=== PATIENT | female | born 1945 | race Caucasian/White ===

== ENCOUNTER 2023-07-31 17:56 | Inpatient (IN) ==
--- NOTE | 2023-07-31 18:04 | Emergency Department Note ---
Impression & Plan Elevated lactic acid level, Weakness, Elevated procalcitonin, Acute dehydration, Hypomagnesemia, Hypokalemia ED Provider Note NAME: GRISELDA SCOTT AGE: 78 SEX: F : 1945 ARRIVES VIA: Ambulance INFORMANT: Patient, ED PROVIDER(S): Mamadou Laws MD CHIEF COMPLAINT: Weakness MEDICAL DECISION MAKING: Patient presents due to concern for generalized weakness as well as vaginal and groin discomfort and dysuria. No evidence of obvious cellulitis in the groin vaginal perineum or buttock area. IV was established blood work was obtained the patient was ordered 1500 cc bolus lactate Pro-Prince and urinalysis. Patient's blood work shows a normal white count H&H and platelet count. The patient's kidney function is unremarkable but with prerenal azotemia. Hypokalemia at 3.2 and hypomagnesemia at 1.5 noted. Initial lactate of 4.3. The patient was ordered a total of 3 L IV fluids. Procalcitonin 8.4. Reassessment the patient does have some mild left-sided flank pain so CT abdomen pelvis was ordered. No obvious infection of UTI based on urinalysis. Bio fire negative. Chest x-ray without obvious evidence of pneumonia. CT abdomen pelvis negative. I did speak with the on-call hospitalist service Dr. Goodman and the patient was admitted to the medicine service. Discussion w/ other healthcare providers: Dr. Goodman inpatient medicine service Prior /Outside records reviewed: I did review some outpatient [facility] records from a visit at [place] which noted the patient was diagnosed with adenovirus and had had a fever at that time. Differential diagnosis: Infection, dehydration, metabolic abnormality, hypo/hyperglycemia, electrolyte imbalance, anemia, UTI, pneumonia, thyroid dysfunction among others were considered. Diagnostics, as interpreted by me: ECG: Normal sinus rhythm, rate of 94, normal intervals, normal axis, no ST elevations, T wave inversion lead III. Cardiac monitoring: An order was placed for continuous cardiac monitoring. The monitor shows a rate of 95 with sinus rhythm. Patient was placed on pulse oximetry Medical decision rules: None Imaging studies: I informally interpreted the patient's chest x-ray which does not show obvious pneumonia or pneumothorax with formal report to follow. HPI: Patient presents due to concern for worsening back and hip discomfort. The patient states that this has been ongoing ever since she was diagnosed with into rhinovirus over the holidays and states that she was having significant diarrhea did require multiple rounds of IV fluids as the patient did have an elevated lactate while seen at [facility] prior. Patient denies any chest pains or shortness of breath. The patient does have an occasional cough. Patient states that she had a fever Tmax 1 to and did take two 650 mg Tylenol x 2 today. Patient states that she does complain of generalized weakness. The patient does have some associated dysuria burning in the groin area. Patient does complain of associate dysuria. The patient states that she did have emesis today but denies any blood in urine or stool. Patient did not have any blood in the vomit. PAST MEDICAL HISTORY: See Below PAST SURGICAL HISTORY: See Below SOCIAL HISTORY: See Below HOME MEDICATIONS: See Below ALLERGIES: See Below VITALS: See Below PHYSICAL EXAMINATION: GENERAL: NAD, non-toxic. EYE EXAM: Normal conjunctiva. PERRL, no anisocoria and EOM's grossly intact w/o pain. OROPHARYNX: Moist mucus membranes, grossly normal dentition. NECK: Supple, no nuchal rigidity, no adenopathy, non-tender. No signs of meningismus. FROM of the neck with good chin to chest and neck extension. No stridor. LUNGS: Clear to auscultation. Normal chest wall mechanics. HEART: NSR, no MRG. ABDOMEN: Abdomen soft, non-tender, no masses, no rebound or guarding. BACK: Left-sided lower back pain. No midline pain. No right-sided pain SKIN: No rashes and no bruising. UPPER EXTREMITIES: Upper extremities are grossly normal. LOWER EXTREMITIES: Grossly normal, no edema. Well-perfused no obvious evidence of cellulitis. NEURO EXAM: A&O x3, cranial nerves II-XII grossly intact, normal speech, moves all 4 extremities. Past Med/Surg History Medical History (Updated 08/01/23 @ 17:52 by Mamadou Laws MD) HLD (hyperlipidemia) H/O: HTN (hypertension) CAD (coronary artery disease) Atrial fibrillation with rapid ventricular response Hypokalemia Surgical History No pertinent past surgical history Social History Smoking Status: Never smoker Hx Alcohol Use: No Hx Substance Use: No Preferred Language: Namibian Communication Ability: Effective Blacking Wheel Tender Required: No Beliefs That Will Affect Care: None Current Living Situation: Alone Current Living Situation Comment: Home Other Information That Helps Us Care for You: Yes (room cool at night, no socks in bed please) Feels Safe at Home: Yes Safety Concerns: Feels Safe At This Time Assistive Devices: Other Assistive Devices Comment: Reading glasses, partial dentures Allergies Allergies Allergy/AdvReac Type Severity Reaction Status Date / Time gabapentin AdvReac EYES BLEED Verified 07/31/23 19:43 Home Meds Home Medications Medication Instructions Recorded Confirmed aspirin 81 mg tablet,delayed 81 mg PO DAILY 07/31/23 07/31/23 release clobetasol 0.05 % topical cream 1 applic topical DIRECTED PRN 07/31/23 07/31/23 .[employer] clopidogrel 75 mg tablet 75 mg PO DAILY 07/31/23 07/31/23 cyanocobalamin (vitamin B-12) 1,000 mcg PO DAILY 07/31/23 07/31/23 1,000 mcg tablet (Vitamin B-12) cyclosporine 0.05 % eye drops in a 1 drp ophthalmic (eye) Q12H 07/31/23 07/31/23 dropperette (Restasis) fluticasone propionate 50 2 spray intranasal DAILY PRN Nasal 07/31/23 07/31/23 mcg/actuation nasal Congestion spray,suspension (Flonase Allergy Relief) lactobacillus combination no.4 3 0 mmu cells PO DAILY 07/31/23 07/31/23 billion cell capsule (Probiotic) levothyroxine 100 mcg tablet 100 mcg PO QAM 07/31/23 07/31/23 metoprolol tartrate 25 mg tablet 25 mg PO BID 07/31/23 08/01/23 multivitamin 1 tab PO DAILY 07/31/23 07/31/23 nitroglycerin 0.4 mg sublingual 0.4 mg sublingual DIRECTED PRN 07/31/23 07/31/23 tablet .CHEST PAIN omeprazole 20 mg capsule,delayed 20 mg PO DAILY 07/31/23 07/31/23 release polyvinyl alcohol 1.4 % eye drops 1 drp ophthalmic (eye) QID PRN 07/31/23 07/31/23 .DRY EYES potassium chloride 10 mEq 10 meq PO DAILY 07/31/23 07/31/23 capsule,extended release rosuvastatin 20 mg tablet 20 mg PO DAILY 07/31/23 07/31/23 Results & Data (ED) Vital Signs Vital Signs - 24 hr 07/31/23 18:09 07/31/23 18:10 07/31/23 18:12 Temperature 36.8 C Temperature Source Oral Pulse Rate 99 H 87 93 H Pulse Rate [Right Finger] Pulse Rate from SpO2 Sensor 95 H 88 Respiratory Rate 29 H 21 21 Blood Pressure 114/89 Blood Pressure [Right Arm] Blood Pressure Mean 97 Blood Pressure Mean [Right Arm] Pulse Oximetry 94 93 97 Oxygen Delivery Method Sepsis Recent Fever Within 48 Hours No Sepsis New/Unexplained Change in Mental Status No Sepsis Action Taken by Nursing No Action Required 07/31/23 18:14 07/31/23 18:20 07/31/23 18:30 Temperature Temperature Source Pulse Rate 89 92 H 96 H Pulse Rate [Right Finger] Pulse Rate from SpO2 Sensor 91 H 95 H Respiratory Rate 26 H 24 Blood Pressure Blood Pressure [Right Arm] Blood Pressure Mean Blood Pressure Mean [Right Arm] Pulse Oximetry 96 94 Oxygen Delivery Method Sepsis Recent Fever Within 48 Hours Sepsis New/Unexplained Change in Mental Status Sepsis Action Taken by Nursing 07/31/23 18:33 07/31/23 18:33 07/31/23 18:35 Temperature Temperature Source Pulse Rate 89 Pulse Rate [Right Finger] Pulse Rate from SpO2 Sensor 88 Respiratory Rate 25 H Blood Pressure 96/56 L Blood Pressure [Right Arm] Blood Pressure Mean 77 Blood Pressure Mean [Right Arm] Pulse Oximetry 94 97 Oxygen Delivery Method Room Air Sepsis Recent Fever Within 48 Hours Sepsis New/Unexplained Change in Mental Status Sepsis Action Taken by Nursing 07/31/23 20:46 07/31/23 21:54 07/31/23 22:10 Temperature Temperature Source Pulse Rate 104 H 106 H Pulse Rate [Right Finger] 111 H Pulse Rate from SpO2 Sensor 106 H Respiratory Rate 12 24 Blood Pressure Blood Pressure [Right Arm] 99/50 L Blood Pressure Mean Blood Pressure Mean [Right Arm] 66 Pulse Oximetry 98 93 Oxygen Delivery Method Room Air Sepsis Recent Fever Within 48 Hours Sepsis New/Unexplained Change in Mental Status Sepsis Action Taken by Nursing 07/31/23 22:20 07/31/23 22:30 07/31/23 22:30 Temperature Temperature Source Pulse Rate 105 H 105 H Pulse Rate [Right Finger] Pulse Rate from SpO2 Sensor 103 H 94 H Respiratory Rate 23 21 Blood Pressure 97/58 L Blood Pressure [Right Arm] Blood Pressure Mean 68 Blood Pressure Mean [Right Arm] Pulse Oximetry 94 93 Oxygen Delivery Method Sepsis Recent Fever Within 48 Hours Sepsis New/Unexplained Change in Mental Status Sepsis Action Taken by Nursing 07/31/23 22:36 07/31/23 22:40 07/31/23 22:50 Temperature Temperature Source Pulse Rate 106 H 102 H Pulse Rate [Right Finger] 107 H Pulse Rate from SpO2 Sensor 99 H 103 H Respiratory Rate 12 23 29 H Blood Pressure Blood Pressure [Right Arm] 97/58 L Blood Pressure Mean Blood Pressure Mean [Right Arm] 71 Pulse Oximetry 98 94 93 Oxygen Delivery Method Room Air Sepsis Recent Fever Within 48 Hours Sepsis New/Unexplained Change in Mental Status Sepsis Action Taken by Nursing 07/31/23 23:00 07/31/23 23:00 07/31/23 23:10 Temperature Temperature Source Pulse Rate 103 H 104 H Pulse Rate [Right Finger] Pulse Rate from SpO2 Sensor 97 H 98 H Respiratory Rate 22 20 Blood Pressure 96/53 L Blood Pressure [Right Arm] Blood Pressure Mean 62 Blood Pressure Mean [Right Arm] Pulse Oximetry 93 95 Oxygen Delivery Method Sepsis Recent Fever Within 48 Hours Sepsis New/Unexplained Change in Mental Status Sepsis Action Taken by Nursing 07/31/23 23:20 07/31/23 23:30 07/31/23 23:30 Temperature Temperature Source Pulse Rate 101 H 98 H Pulse Rate [Right Finger] Pulse Rate from SpO2 Sensor 99 H 99 H Respiratory Rate 25 H 21 Blood Pressure 101/62 Blood Pressure [Right Arm] Blood Pressure Mean 83 Blood Pressure Mean [Right Arm] Pulse Oximetry 94 94 Oxygen Delivery Method Sepsis Recent Fever Within 48 Hours Sepsis New/Unexplained Change in Mental Status Sepsis Action Taken by Nursing 07/31/23 23:40 07/31/23 23:50 08/01/23 00:00 Temperature Temperature Source Pulse Rate 101 H 104 H 104 H Pulse Rate [Right Finger] Pulse Rate from SpO2 Sensor 101 H 104 H 102 H Respiratory Rate 20 20 16 Blood Pressure Blood Pressure [Right Arm] Blood Pressure Mean Blood Pressure Mean [Right Arm] Pulse Oximetry 90 94 94 Oxygen Delivery Method Sepsis Recent Fever Within 48 Hours Sepsis New/Unexplained Change in Mental Status Sepsis Action Taken by Nursing 08/01/23 00:00 Temperature Temperature Source Pulse Rate Pulse Rate [Right Finger] Pulse Rate from SpO2 Sensor Respiratory Rate Blood Pressure 100/57 L Blood Pressure [Right Arm] Blood Pressure Mean 76 Blood Pressure Mean [Right Arm] Pulse Oximetry Oxygen Delivery Method Sepsis Recent Fever Within 48 Hours Sepsis New/Unexplained Change in Mental Status Sepsis Action Taken by Nursing Laboratory Data 08/01/23 04:12 08/01/23 04:12 Lab Results 07/31/23 07/31/23 Range/Units 18:36 20:17 WBC 8.54 (4.8-10.8) K/ul RBC 4.22 (4.20-5.40) M/uL Hgb 14.2 (12.0-16.0) g/dl Hct 41.1 (37.0-47.0) % MCV 97.4 (80.0-100.0) fL MCH 33.6 (25.0-34.0) pg MCHC 34.5 (32.0-36.0) g/dL RDW Std Deviation 45.0 (36.4-46.3) fL RDW Coeff of Ronit 12.7 (11.5-14.5) % Plt Count 215 (130-400) K/uL MPV 10.1 (9.4-12.4) fL Immature Gran % (Auto) 1.1 % Neut % (Auto) 94.0 % Lymph % (Auto) 4.0 % [place] % (Auto) 0.2 % Eos % (Auto) 0.5 % Baso % (Auto) 0.2 % Neut # (Auto) 8.03 H (1.40-6.50) K/uL Lymph # (Auto) 0.34 L (1.20-3.40) K/uL [place] # (Auto) 0.02 L (0.11-0.59) K/uL Eos # (Auto) 0.04 (0.00-0.50) K/uL Baso # (Auto) 0.02 (0.00-0.20) K/uL Immature Gran # (Auto) 0.09 (0.01-0.20) K/uL Sodium 138 (136-145) mmol/L Potassium 3.2 L (3.5-5.1) mmol/L Chloride 103 (98-107) mmol/L Carbon Dioxide 23 (21-32) mmol/L Anion Gap 12 H (3-11) BUN 25 H (6-23) mg/dl Creatinine 0.88 (0.6-1.2) mg/dl Est Cr Clr Drug Dosing 50.9 ml/min Est GFR ( Amer) 74.0 ml/min Est GFR (Non-Af Amer) 63.8 ml/min BUN/Creatinine Ratio 28.4 H (10-20) Glucose 127 H (70-99(Fasting)) mg/dl Lactate 4.3 H* 2.8 H* (0.4-2.0) mmol/L Calcium 10.0 (8.6-10.3) mg/dl Magnesium 1.5 L (1.7-2.4) mg/dl Total Bilirubin 0.7 (0.2-1.0) mg/dl AST 34 (13-39) U/L ALT 29 (7-52) U/L Alkaline Phosphatase 89 (34-104) U/L Total Protein 7.1 (6.0-8.3) gm/dl Albumin 4.2 (3.4-5.0) gm/dl Globulin 2.9 (2.5-4.0) gm/dl Albumin/Globulin Ratio 1.4 (0.9-2) Procalcitonin 8.42 H (0-0.5) ng/ml TSH 2.507 (0.300-4.500) uIu/ml Urine Color Dark Yellow Urine Appearance Clear (Clear) Urine pH 5.0 (4.5-7.5) Ur Specific [place] 1.013 (1.000-1.030) Urine Protein Trace H (Negative) Urine Glucose (UA) Negative (Negative) Urine Ketones Negative (Negative) Urine Blood Negative (Negative) Urine Nitrite Negative (Negative) Urine Bilirubin Negative (Negative) Urine Urobilinogen Negative (Negative) Ur Leukocyte Esterase Trace H (Negative) Urine WBC (Auto) 1-5 (0-5) /hpf Urine RBC (Auto) 0-4 (0-4) /hpf U Hyaline Cast (Auto) 1-5 (0-5) /lpf U Epithel Cells (Auto) >30 H (0-5) /lpf Urine Bacteria (Auto) Negative (Negative) Adenovirus (PCR) Not Detected (NotDetected) B. pertussis DNA (PCR) Not Detected (NotDetected) B.parapertussis DNA PCR Not Detected (NotDetected) C. pneumoniae DNA (PCR) Not Detected (NotDetected) Coronavirus OC43 (PCR) Not Detected (NotDetected) Coronavirus HKU1 (PCR) Not Detected (NotDetected) Coronavirus 229E (PCR) Not Detected (NotDetected) SARS-CoV-2 (PCR) Not Detected (NotDetected) Coronavirus NL63 (PCR) Not Detected (NotDetected) Human Metapneumovir PCR Not Detected (NotDetected) Influenza Type A (PCR) Not Detected (NotDetected) Influenza Type B (PCR) Not Detected (NotDetected) M. pneumoniae (PCR) Not Detected (NotDetected) Parainfluenza 1 (PCR) Not Detected (NotDetected) Parainfluenza 2 (PCR) Not Detected (NotDetected) Parainfluenza 3 (PCR) Not Detected (NotDetected) Parainfluenza 4 (PCR) Not Detected (NotDetected) RSV (PCR) Not Detected (NotDetected) Entero/Rhino (PCR) Not Detected (NotDetected) Administered Medications Aspirin (Aspirin 81 Mg Ectab) 81 mg PO DAILY PENDING SALE TO [facility] Stop: 08/31/23 08:59 Last Admin: 08/01/23 08:59 Dose: 81 mg Documented By: MADHU Clopidogrel Bisulfate (Clopidogrel Bisulfate 75 Mg Tab) 75 mg PO DAILY KORIN Stop: 08/31/23 08:59 Last Admin: 08/01/23 08:59 Dose: 75 mg Documented By: MADHU Cyanocobalamin (Cyanocobalamin (B-12) 500 Mcg Tablet) 1,000 mcg PO DAILY KORIN Stop: 08/31/23 08:59 Last Admin: 08/01/23 09:00 Dose: 1,000 mcg Documented By: MADHU Hydromorphone HCl (Hydromorphone Inj 0.5 Mg/0.5 Ml Syr) 0.5 mg IV Q3H PRN PRN Reason: Pain Stop: 08/15/23 00:29 Last Admin: 08/01/23 14:24 Dose: 0.5 mg Documented By: Admin: 08/01/23 07:17 Dose: 0.5 mg Documented By: MADHU Piperacillin Sod/Tazobactam (Sod 4.5 gm/ Dextrose) 100 mls @ 25 mls/hr IV Q8H PENDING SALE TO [facility]; Protocol Stop: 08/11/23 05:59 Last Admin: 08/01/23 14:42 Dose: 25 mls/hr Documented By: Infusion: 08/01/23 11:19 Dose: Infused Documented By: Admin: 08/01/23 07:19 Dose: 25 mls/hr Documented By: MADHU Sodium Chloride (Nss) 1,000 mls @ 125 mls/hr IV .Q8H PENDING SALE TO [facility] Stop: 08/31/23 00:29 Last Admin: 08/01/23 17:23 Dose: 125 mls/hr Documented By: Infusion: 08/01/23 17:05 Dose: Infused Documented By: Admin: 08/01/23 09:05 Dose: 125 mls/hr Documented By: Infusion: 08/01/23 09:04 Dose: Infused Documented By: Admin: 08/01/23 01:01 Dose: 125 mls/hr Documented By: JR Amiodarone HCl/Dextrose (Nexterone / D5w) 360 mg in 200 mls @ 33.333 mls/hr IV ONE ONE Stop: 08/01/23 22:59 Last Admin: 08/01/23 17:07 Dose: 1 mg/min, 33.3 mls/hr Documented By: PEACE Co-signed By: WILLA Insulin Aspart (Insulin Aspart Per Unit Charge) 0 units SC Q6 PENDING SALE TO [facility] Stop: 08/31/23 00:29 Last Admin: 08/01/23 14:51 Dose: Not Given Documented By: Admin: 08/01/23 06:31 Dose: 1 units Documented By: BEN Co-signed By: CASTRO Admin: 08/01/23 01:11 Dose: 1 units Documented By: JR Co-signed By: JAMES Levothyroxine Sodium (Levothyroxine Sodium 100 Mcg Tablet) 100 mcg PO DAILYBB PENDING SALE TO [facility] Stop: 08/31/23 06:29 Last Admin: 08/01/23 06:32 Dose: 100 mcg Documented By: BEN Metoprolol Tartrate (Metoprolol Tartrate 25 Mg Tab) 25 mg PO BID PENDING SALE TO [facility] Stop: 08/31/23 08:59 Last Admin: 08/01/23 09:02 Dose: Not Given Documented By: MADHU Multivitamins (Multivitamin Tab) 1 tab PO DAILY KORIN Stop: 08/31/23 08:59 Last Admin: 08/01/23 09:01 Dose: 1 tab Documented By: MADHU Potassium Chloride (Potassium Chloride 10 Meq Tabcr) 10 meq PO DAILY KORIN Stop: 08/31/23 08:59 Last Admin: 08/01/23 09:01 Dose: 10 meq Documented By: MADHU Rosuvastatin Calcium (Rosuvastatin Calcium 20 Mg Tab) 20 mg PO DAILY KORIN Stop: 08/31/23 08:59 Last Admin: 08/01/23 09:01 Dose: 20 mg Documented By: MADHU Discontinued Medications Enoxaparin Sodium (Enoxaparin Inj 40 Mg/0.4 Ml Syr) 40 mg SQ Q24H KORIN Stop: 08/31/23 08:59 Last Admin: 08/01/23 09:02 Dose: 40 mg Documented By: MADHU Hydromorphone HCl (Hydromorphone Inj 0.5 Mg/0.5 Ml Syr) 0.5 mg IV NOW STA Stop: 07/31/23 23:29 Last Admin: 07/31/23 23:35 Dose: 0.5 mg Documented By: JR Sodium Chloride (Nss) 1,000 mls @ 999 mls/hr IV .Q1H1M KORIN Stop: 07/31/23 19:30 Last Infusion: 07/31/23 19:49 Dose: Infused Documented By: Admin: 07/31/23 18:41 Dose: 999 mls/hr Documented By: MALDONADO Sodium Chloride (Nss) 500 mls @ 999 mls/hr IV .Q31M KORIN Stop: 07/31/23 19:00 Last Infusion: 07/31/23 19:12 Dose: Infused Documented By: Admin: 07/31/23 18:41 Dose: 999 mls/hr Documented By: MALDONADO Sodium Chloride (Nss) 1,000 mls @ 999 mls/hr IV .Q1H1M ONE Stop: 07/31/23 19:57 Last Infusion: 07/31/23 20:23 Dose: Infused Documented By: Admin: 07/31/23 19:27 Dose: 999 mls/hr Documented By: JR Ceftriaxone Sodium (Rocephin) 2,000 mg in 50 mls @ 100 mls/hr IV NOW STA Stop: 07/31/23 20:49 Last Infusion: 07/31/23 21:12 Dose: Infused Documented By: Admin: 07/31/23 20:38 Dose: 100 mls/hr Documented By: JR Sodium Chloride (Nss) 500 mls @ 999 mls/hr IV .Q31M ONE Stop: 07/31/23 21:27 Last Infusion: 07/31/23 22:23 Dose: Infused Documented By: Admin: 07/31/23 21:38 Dose: 999 mls/hr Documented By: JR Magnesium Sulfate/Dextrose (Magnesium Sulfate / D5w) 1 gm in 100 mls @ 100 mls/hr IV Q1H KORIN Stop: 07/31/23 22:57 Last Infusion: 07/31/23 23:41 Dose: Infused Documented By: Admin: 07/31/23 22:36 Dose: 100 mls/hr Documented By: Infusion: 07/31/23 22:36 Dose: Infused Documented By: Admin: 07/31/23 21:37 Dose: 100 mls/hr Documented By: JR Piperacillin Sod/Tazobactam (Sod 4.5 gm/ Dextrose) 100 mls @ 200 mls/hr IV ONE STA; Protocol Stop: 08/01/23 01:07 Last Infusion: 08/01/23 01:30 Dose: Infused Documented By: Admin: 08/01/23 01:01 Dose: 200 mls/hr Documented By: JR Sodium Chloride (Nss) 500 mls @ 500 mls/hr IV .Q1H KORIN Stop: 08/01/23 08:14 Last Infusion: 08/01/23 08:25 Dose: Infused Documented By: Admin: 08/01/23 07:25 Dose: 500 mls/hr Documented By: MADHU Amiodarone HCl/Dextrose (Nexterone / D5w) 150 mg in 100 mls @ 600 mls/hr IV NOW STA Stop: 08/01/23 16:59 Last Infusion: 08/01/23 17:13 Dose: Infused Documented By: PEACE Co-signed By: WILLA Admin: 08/01/23 17:02 Dose: 600 mls/hr Documented By: PEACE Co-signed By: WILLA Ioversol (Optiray 320 500ml) 84 ml IV ONCE ONE Stop: 07/31/23 21:26 Last Admin: 07/31/23 21:26 Dose: 84 ml Documented By: HAYDEN Metoprolol Tartrate (Metoprolol Tartrate 1 Mg/Ml Vial) 5 mg IV NOW STA Stop: 08/01/23 15:23 Last Admin: 08/01/23 15:31 Dose: 5 mg Documented By: VIJI Morphine Sulfate (Morphine Sulfate 4 Mg/Ml 1 Ml Carp\Vial) 4 mg IV NOW STA Stop: 07/31/23 21:14 Last Admin: 07/31/23 21:38 Dose: 4 mg Documented By: JR Ondansetron HCl (Ondansetron Inj 2 Mg/Ml 2 Ml Vial) 4 mg IV NOW STA Stop: 07/31/23 21:14 Last Admin: 07/31/23 21:38 Dose: 4 mg Documented By: JR Potassium Chloride (Potassium Chloride Crtab 20 Meq Tabcr) 40 meq PO NOW STA Stop: 07/31/23 20:58 Last Admin: 07/31/23 21:38 Dose: Not Given Documented By: JR Imaging Data Radiologist's Impression: Chest X-Ray 07/31/23 18:21 XR chest 1V portable HISTORY: weakness COMPARISON: None. FINDINGS: No pneumothorax. No pleural effusions. Mild interstitial thickening. This is likely chronic. The heart is mildly enlarged. No evidence for pulmonary edema. No acute fractures. Cervical spinal fusion hardware is noted. IMPRESSION: Cardiomegaly and mild interstitial thickening. This is likely chronic. ACT 112: Negative or not required by law. Electronically signed by: Javier Gonzalez M.D. 08/01/2023 7:39 AM Chest X-Ray 07/31/23 18:21 XR chest 1V portable HISTORY: weakness COMPARISON: None. FINDINGS: No pneumothorax. No pleural effusions. Mild interstitial thickening. This is likely chronic. The heart is mildly enlarged. No evidence for pulmonary edema. No acute fractures. Cervical spinal fusion hardware is noted. IMPRESSION: Cardiomegaly and mild interstitial thickening. This is likely chronic. ACT 112: Negative or not required by law. Electronically signed by: Javier Gonzalez M.D. 08/01/2023 7:39 AM Abdomen/Pelvis CT 07/31/23 21:13 Exam(s): CT ABDOMEN + PELVIS With Contrast IV Amt: 84 ml optiray 320 EXAM: CT Abdomen and Pelvis With Intravenous Contrast CLINICAL HISTORY: Reason for exam: L flank pain. TECHNIQUE: Axial computed tomography images of the abdomen and pelvis with intravenous contrast. Automated exposure control was utilized for the study. A dose lowering technique was utilized adhering to the principles of ALARA. CONTRAST: Patient received 84 ml optiray 320 of IV contrast COMPARISON: No relevant prior studies available. FINDINGS: Lung bases: Unremarkable. No mass. No consolidation. ABDOMEN: Liver: Unremarkable. No mass. Gallbladder and bile ducts: Cholelithiasis. No ductal dilation. Pancreas: Unremarkable. No mass. No ductal dilation. Spleen: Calcified splenic granulomas. Adrenals: Unremarkable. No mass. Kidneys and ureters: Unremarkable. No hydronephrosis or delayed nephrogram. Stomach and bowel: Diverticulosis, without acute diverticulitis. No bowel obstruction. No free air. PELVIS: Appendix: Appendectomy. Bladder: Unremarkable. No mass. Reproductive: Unremarkable as visualized. ABDOMEN and PELVIS: Intraperitoneal space: See above. Bones/joints: Degenerative changes of the spine. No acute fracture. No dislocation. Soft tissues: Unremarkable. Vasculature: Atherosclerotic changes of the aorta. No abdominal aortic aneurysm. Lymph nodes: Unremarkable. No enlarged lymph nodes. IMPRESSION: No acute findings in the abdomen or pelvis. Electronically signed by: Koby Anderson MD 07/31/23 21:39 PM Discharge Plan Visit Data Chief Complaint: Hip Pain ED Provider: Mamadou Laws Discharge Problem: Elevated lactic acid level, Weakness, Elevated procalcitonin, Acute dehydration, Hypomagnesemia, Hypokalemia Patient Disposition: Admitted As Inpatient Discharge Instructions Interventions: ED Discharge Assessment Last Done: 08/01/23 00:32
[2023-07-31] MEDS ORDERED: SODIUM CHLORIDE 0.9% 500 ML IV SCH (18:30)
[2023-07-31] MEDS ORDERED: SODIUM CHLORIDE 0.9% 1,000 ML IV SCH (18:30)
[2023-07-31 18:47] LABS: Appearance Urine Clear (Clear); Bacteria Urine Automated Negative (Negative); Bilirubin Urine Negative (Negative); Blood Urine Negative (Negative); Color Urine Dark Yellow; Epithelial Cell Urine Auto >30 /lpf (0-5); Glucose Urine UA Negative (Negative); Hematocrit (blood only) 41.1 % (37.0-47.0); Hemoglobin 14.2 g/dl (12.0-16.0); Ketones Urine Negative (Negative); Leukocyte Esterase Urine Trace (Negative); Mean Corpuscular Hemoglobin 33.6 pg (25.0-34.0); Mean Corpuscular Hgb Conc 34.5 g/dL (32.0-36.0); Mean Corpuscular Volume 97.4 fL (80.0-100.0); Mean Platelet Volume 10.1 fL (9.4-12.4); Nitrite Urine Negative (Negative); Platelet Count 215 K/uL (130-400); Protein Urine Trace (Negative); RBC Urine Automated 0-4 /hpf (0-4); RDW Coefficient of Variation 12.7 % (11.5-14.5); Red Blood Count 4.22 M/uL (4.20-5.40); Specific Gravity Urine 1.013 (1.000-1.030); Urobilinogen Urine Negative (Negative); White Blood Count 8.54 K/ul (4.8-10.8)
[2023-07-31] MEDS ORDERED: SODIUM CHLORIDE 0.9% 1,000 ML IV ONE (18:57)
[2023-07-31 19:06] LABS: Albumin Globulin Ratio 1.4 (0.9-2); Albumin Level 4.2 gm/dl (3.4-5.0); BUN Creatinine Ratio 28.4 (10-20); Bilirubin,Total 0.7 mg/dl (0.2-1.0); Creatinine Clr Calc Pharmacy 50.9 ml/min; Est GFR (Non-African American) 63.8 ml/min; Globulin 2.9 gm/dl (2.5-4.0); Magnesium 1.5 mg/dl (1.7-2.4); Potassium 3.2 mmol/L (3.5-5.1); Total Protein 7.1 gm/dl (6.0-8.3)
[2023-07-31 19:10] LABS: Basophils # (auto) 0.02 K/uL (0.00-0.20); Basophils % (auto) 0.2 %; Eosinophils # (auto) 0.04 K/uL (0.00-0.50); Eosinophils % (auto) 0.5 %; Immature Granulocytes # (auto) 0.09 K/uL (0.01-0.20); Immature Granulocytes % (auto) 1.1 %; Lymphocytes # (auto) 0.34 K/uL (1.20-3.40); Monocytes # (auto) 0.02 K/uL (0.11-0.59); Monocytes % (auto) 0.2 %; Neutrophils # (auto) 8.03 K/uL (1.40-6.50)
[2023-07-31 19:21] LABS: Thyroid Stimulating Hormone 2.507 uIu/ml (0.300-4.500)
[2023-07-31 19:44] LABS: Adenovirus PCR Not Detected (NotDetected); Bordetella parapertussis PCR Not Detected (NotDetected); Bordetella pertussis PCR Not Detected (NotDetected); Chlamydia pneumoniae PCR Not Detected (NotDetected); Coronavirus 229E PCR Not Detected (NotDetected); Coronavirus CoV-2 (COVID19)PCR Not Detected (NotDetected); Coronavirus HKU1 PCR Not Detected (NotDetected); Coronavirus NL63 PCR Not Detected (NotDetected); Coronavirus OC43PCR Not Detected (NotDetected); Human Metapneumovirus PCR Not Detected (NotDetected); Influenza A PCR Not Detected (NotDetected); Influenza B PCR Not Detected (NotDetected); Mycoplasma pneumoniae PCR Not Detected (NotDetected); Parainfluenza Virus 1 PCR Not Detected (NotDetected); Parainfluenza Virus 2 PCR Not Detected (NotDetected); Parainfluenza Virus 3 PCR Not Detected (NotDetected); Parainfluenza Virus 4 PCR Not Detected (NotDetected); Respiratory Syncytial VirusPCR Not Detected (NotDetected); Rhinovirus/Enterovirus PCR Not Detected (NotDetected)
[2023-07-31] MEDS ORDERED: cefTRIAXone SODIUM 2,000 MG/50 ML BAG IV STA (20:20)
[2023-07-31] MEDS ORDERED: POTASSIUM CHLORIDE CRTAB 20 MEQ TABCR PO STA (20:57)
[2023-07-31] MEDS ORDERED: SODIUM CHLORIDE 0.9% 500 ML IV ONE (20:57)
[2023-07-31] MEDS ORDERED: ONDANSETRON INJ 2 MG/ML 2 ML VIAL IV STA (21:13)
[2023-07-31] MEDS ORDERED: MoRPHine SULFATE 4 MG/ML 1 ML CARP\\VIAL IV STA (21:13)
[2023-07-31] MEDS ORDERED: OPTIRAY 320 500ml IV ONE (21:25)
[2023-07-31] MEDS: MAGNESIUM SULFATE / D5W 1 GM/100 ML BAG IV SCH ×2 (21:37→22:36)
--- NOTE | 2023-07-31 21:40 | CT Scan Report ---
Exam(s): CT ABDOMEN + PELVIS With Contrast IV Amt: 84 ml optiray 320 EXAM: CT Abdomen and Pelvis With Intravenous Contrast CLINICAL HISTORY: Reason for exam: L flank pain. TECHNIQUE: Axial computed tomography images of the abdomen and pelvis with intravenous contrast. Automated exposure control was utilized for the study. A dose lowering technique was utilized adhering to the principles of ALARA. CONTRAST: Patient received 84 ml optiray 320 of IV contrast COMPARISON: No relevant prior studies available. FINDINGS: Lung bases: Unremarkable. No mass. No consolidation. ABDOMEN: Liver: Unremarkable. No mass. Gallbladder and bile ducts: Cholelithiasis. No ductal dilation. Pancreas: Unremarkable. No mass. No ductal dilation. Spleen: Calcified splenic granulomas. Adrenals: Unremarkable. No mass. Kidneys and ureters: Unremarkable. No hydronephrosis or delayed nephrogram. Stomach and bowel: Diverticulosis, without acute diverticulitis. No bowel obstruction. No free air. PELVIS: Appendix: Appendectomy. Bladder: Unremarkable. No mass. Reproductive: Unremarkable as visualized. ABDOMEN and PELVIS: Intraperitoneal space: See above. Bones/joints: Degenerative changes of the spine. No acute fracture. No dislocation. Soft tissues: Unremarkable. Vasculature: Atherosclerotic changes of the aorta. No abdominal aortic aneurysm. Lymph nodes: Unremarkable. No enlarged lymph nodes. IMPRESSION: No acute findings in the abdomen or pelvis. Electronically signed by: Koby Anderson MD 07/31/23 21:39 PM
[2023-07-31] MEDS ORDERED: HYDROmorphone INJ 0.5 MG/0.5 ML SYR IV STA (23:28)
--- NOTE | 2023-08-01 00:18 | History & Physical Report ---
Date of Service July 31, 2023 Assessment & Plan (1) Abdominal pain: Plan: 78-year-old female past medical history significant for type 2 diabetes seems not on medication, hypothyroidism, chronic recurrent sinusitis, history of CAD s/p stents in February 2023, hypertension, paroxysmal supraventricular tachycardia, GERD, vitamin B12 deficiency, epiglottic appendagitis urinary incontinence, generalized osteoarthritis, cervical radiculitis, chronic abdominal pain, progressive vascular leukoencephalopathy, circumscribed scleroderma, s/p cervical fusion surgery, general anxiety disorder, ambulatory dysfunction presents with ongoing nausea vomiting abdominal pain diarrhea and hip pain. Patient was seen at [facility] on with fever and vomiting and burning micturition and found to RSV and was discharged home. She went back to [facility] in July 18 with persistent symptoms and chest x-ray possible pneumonia and her initial lactic acid was 2.6 and repeat is 1.6 and she was discharged on Augmentin and azithromycin. She finished antibiotics yesterday. Again starting developing nausea vomiting severe abdominal pain and hip pain and pain radiating to groins which prompted her to come to the ER today. Hemodynamically stable. Initial lactic acid was 4.3. Repeat lactic is 2.8. Complains of some burning micturition. She was given Rocephin. CT abdomen pelvis is okay. No leukocytosis. Afebrile. States sometimes gets headache. Vision is okay. She has some chronic left-sided neck pain and jaw pain from history of dental infection. No neck stiffness. Still nauseous. Denies any chest pain. No shortness of breath. No cough. No blood in the stools. Hemodynamics okay. Daughter is in the room. Abdominal pain Nausea vomiting diarrhea Going on since time Just finished antibiotics Augmentin and azithromycin for possible pneumonia Initial lactic was 4.2 and repeat is 2.8 Elevated procalcitonin at 8 No obvious source of infection identified No leukocytosis UA is okay Chest x-ray seems okay Empirically placing on Zosyn IV Protonix IV fluids IV antibiotics with Zosyn IV pain meds as needed Will follow blood cultures and stool studies GI consult in a.m. for further recommendations Elevated lactic acidosis CT abdomen pelvis okay As patient has had some headache will arline CT head and some cough we will get CT of the chest Follow repeat labs Antibiotics as above History of CAD s/p stents in February 2023 Continue home aspirin, Plavix, beta-andreia and statin Hypertension On metoprolol Will monitor Hyperlipidemia On statin Diabetes Not on medications Follow HbA1c levels Sliding scale Hypothyroidism On Synthyroid Follow TSH History of SVT On metoprolol DVT prophylaxis Lovenox Disposition Med/tele Full code History of Present Illness Chief Complaint: General weakness. Nausea vomiting and diarrhea and dysuria and abdominal pain Primary Care Provider: Philly Chin 78-year-old female past medical history significant for type 2 diabetes seems not on medication, hypothyroidism, chronic recurrent sinusitis, history of CAD s/p stents in February 2023, hypertension, paroxysmal supraventricular tachycardia, GERD, vitamin B12 deficiency, epiglottic appendagitis urinary incontinence, generalized osteoarthritis, cervical radiculitis, chronic abdominal pain, progressive vascular leukoencephalopathy, circumscribed scleroderma, s/p cervical fusion surgery, general anxiety disorder, ambulatory dysfunction presents with ongoing nausea vomiting abdominal pain diarrhea and hip pain. Patient was seen at [facility] on with fever and vomiting and burning micturition and found to RSV and was discharged home. She went back to [facility] in July 18 with persistent symptoms and chest x-ray possible pneumonia and her initial lactic acid was 2.6 and repeat is 1.6 and she was discharged on Augmentin and azithromycin. She finished antibiotics yesterday. Again starting developing nausea vomiting severe abdominal pain and hip pain and pain radiating to groins which prompted her to come to the ER today. Hemodynamically stable. Initial lactic acid was 4.3. Repeat lactic is 2.8. Complains of some burning micturition. She was given Rocephin. CT abdomen pelvis is okay. No leukocytosis. Afebrile. States sometimes gets headache. Vision is okay. She has some chronic left-sided neck pain and jaw pain from history of dental infection. No neck stiffness. Still nauseous. Denies any chest pain. No shortness of breath. No cough. No blood in the stools. Hemodynamics okay. Daughter is in the room. Past medical history.. As mentioned above Past surgical history. Spine surgery. Biopsy of soft tissue shoulder. Carpal tunnel surgery. Colonoscopy. Cardiac cath. EGD. Ligation oviducts. Excision of bilateral upper lids. Partial removal of colon. Appendectomy. Removal of pelvic structures. Tonsillectomy. Social history. . No smoking. No alcohol use. No drug use. Family history. Mother had cancer. Father had diabetes. Heart disorder. Endocrine disorder. Allergies Allergy/AdvReac Type Severity Reaction Status Date / Time gabapentin AdvReac EYES BLEED Verified 07/31/23 19:43 Home Medications Medication Instructions Recorded Confirmed Type aspirin 81 mg tablet,delayed 81 mg PO DAILY 07/31/23 07/31/23 History release clobetasol 0.05 % topical cream 1 applic topical DIRECTED PRN 07/31/23 07/31/23 History .FLARE UPS clopidogrel 75 mg tablet 75 mg PO DAILY 07/31/23 07/31/23 History cyanocobalamin (vitamin B-12) 1,000 mcg PO DAILY 07/31/23 07/31/23 History 1,000 mcg tablet (Vitamin B-12) cyclosporine 0.05 % eye drops in a 1 drp ophthalmic (eye) Q12H 07/31/23 07/31/23 History dropperette (Restasis) fluticasone propionate 50 2 spray intranasal DAILY PRN Nasal 07/31/23 07/31/23 History mcg/actuation nasal Congestion spray,suspension (Flonase Allergy Relief) lactobacillus combination no.4 3 0 mmu cells PO DAILY 07/31/23 07/31/23 History billion cell capsule (Probiotic) levothyroxine 100 mcg tablet 100 mcg PO QAM 07/31/23 07/31/23 History metoprolol tartrate 25 mg tablet 25 mg PO BID 07/31/23 08/01/23 History multivitamin 1 tab PO DAILY 07/31/23 07/31/23 History nitroglycerin 0.4 mg sublingual 0.4 mg sublingual DIRECTED PRN 07/31/23 07/31/23 History tablet .CHEST PAIN omeprazole 20 mg capsule,delayed 20 mg PO DAILY 07/31/23 07/31/23 History release polyvinyl alcohol 1.4 % eye drops 1 drp ophthalmic (eye) QID PRN 07/31/23 07/31/23 History .DRY EYES potassium chloride 10 mEq 10 meq PO DAILY 07/31/23 07/31/23 History capsule,extended release rosuvastatin 20 mg tablet 20 mg PO DAILY 07/31/23 07/31/23 History Past Med/Surg History Social History Smoking Status: Never smoker Hx Alcohol Use: No Hx Substance Use: No Preferred Language: Romanian Communication Ability: Effective [employer] 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 ENT- oropharynx clear Neck- supple, no JVD. Lungs- clear to auscultation no wheezing or crackles. Heart- regular rhythm; no murmur, no gallop. Abdomen- normal bowel sounds, soft, mild diffuse tender more in epigastric region, no distension. Extremities- no pretibial edema, no erythema seen Neuro- alert, oriented x 3; PERRL, no facial palsy; no dysarthria; moves extremities. Skin- warm & dry Results & Data Results & Data Vital Signs (Past 12 Hours) Vital Signs Temp Pulse Pulse Resp BP BP Pulse Ox 07/31/23 22:36 107 H 12 97/58 L 98 07/31/23 21:54 104 H 07/31/23 20:46 111 H 12 99/50 L 98 07/31/23 18:35 97 07/31/23 18:33 89 25 H 94 07/31/23 18:33 96/56 L 07/31/23 18:30 96 H 24 94 07/31/23 18:20 92 H 26 H 96 07/31/23 18:14 89 07/31/23 18:12 36.8 C 93 H 21 114/89 97 07/31/23 18:10 87 21 93 07/31/23 18:09 99 H 29 H 94 O2 Del Method 07/31/23 22:36 Room Air 07/31/23 21:54 07/31/23 20:46 Room Air 07/31/23 18:35 Room Air 07/31/23 18:33 07/31/23 18:33 07/31/23 18:30 07/31/23 18:20 07/31/23 18:14 07/31/23 18:12 07/31/23 18:10 07/31/23 18:09 Diagnostic Findings Laboratory Results WBC 8.54 K/ul (4.8-10.8) 07/31/23 18:36 RBC 4.22 M/uL (4.20-5.40) 07/31/23 18:36 Hgb 14.2 g/dl (12.0-16.0) 07/31/23 18:36 Hct 41.1 % (37.0-47.0) 07/31/23 18:36 MCV 97.4 fL (80.0-100.0) 07/31/23 18:36 MCH 33.6 pg (25.0-34.0) 07/31/23 18:36 MCHC 34.5 g/dL (32.0-36.0) 07/31/23 18:36 RDW Std Deviation 45.0 fL (36.4-46.3) 07/31/23 18:36 RDW Coeff of Ronit 12.7 % (11.5-14.5) 07/31/23 18:36 Plt Count 215 K/uL (130-400) 07/31/23 18:36 MPV 10.1 fL (9.4-12.4) 07/31/23 18:36 Immature Gran % (Auto) 1.1 % 07/31/23 18:36 Neut % (Auto) 94.0 % 07/31/23 18:36 Lymph % (Auto) 4.0 % 07/31/23 18:36 [place] % (Auto) 0.2 % 07/31/23 18:36 Eos % (Auto) 0.5 % 07/31/23 18:36 Baso % (Auto) 0.2 % 07/31/23 18:36 Neut # (Auto) 8.03 K/uL (1.40-6.50) H 07/31/23 18:36 Lymph # (Auto) 0.34 K/uL (1.20-3.40) L 07/31/23 18:36 [place] # (Auto) 0.02 K/uL (0.11-0.59) L 07/31/23 18:36 Eos # (Auto) 0.04 K/uL (0.00-0.50) 07/31/23 18:36 Baso # (Auto) 0.02 K/uL (0.00-0.20) 07/31/23 18:36 Immature Gran # (Auto) 0.09 K/uL (0.01-0.20) 07/31/23 18:36 Sodium 138 mmol/L (136-145) 07/31/23 18:36 Potassium 3.2 mmol/L (3.5-5.1) L 07/31/23 18:36 Chloride 103 mmol/L (98-107) 07/31/23 18:36 Carbon Dioxide 23 mmol/L (21-32) 07/31/23 18:36 Anion Gap 12 (3-11) H 07/31/23 18:36 BUN 25 mg/dl (6-23) H 07/31/23 18:36 Creatinine 0.88 mg/dl (0.6-1.2) 07/31/23 18:36 Est Cr Clr Drug Dosing 50.9 ml/min 07/31/23 18:36 Est GFR ( Amer) 74.0 ml/min 07/31/23 18:36 Est GFR (Non-Af Amer) 63.8 ml/min 07/31/23 18:36 BUN/Creatinine Ratio 28.4 (10-20) H 07/31/23 18:36 Glucose 127 mg/dl (70-99(Fasting)) H 07/31/23 18:36 Lactate 2.8 mmol/L (0.4-2.0) H* 07/31/23 20:17 Calcium 10.0 mg/dl (8.6-10.3) 07/31/23 18:36 Magnesium 1.5 mg/dl (1.7-2.4) L 07/31/23 18:36 Total Bilirubin 0.7 mg/dl (0.2-1.0) 07/31/23 18:36 AST 34 U/L (13-39) 07/31/23 18:36 ALT 29 U/L (7-52) 07/31/23 18:36 Alkaline Phosphatase 89 U/L (34-104) 07/31/23 18:36 Total Protein 7.1 gm/dl (6.0-8.3) 07/31/23 18:36 Albumin 4.2 gm/dl (3.4-5.0) 07/31/23 18:36 Globulin 2.9 gm/dl (2.5-4.0) 07/31/23 18:36 Albumin/Globulin Ratio 1.4 (0.9-2) 07/31/23 18:36 Procalcitonin 8.42 ng/ml (0-0.5) H 07/31/23 18:36 TSH 2.507 uIu/ml (0.300-4.500) 07/31/23 18:36 Urine Color Dark Yellow 07/31/23 18:36 Urine Appearance Clear (Clear) 07/31/23 18:36 Urine pH 5.0 (4.5-7.5) 07/31/23 18:36 Ur Specific [place] 1.013 (1.000-1.030) 07/31/23 18:36 Urine Protein Trace (Negative) H 07/31/23 18:36 Urine Glucose (UA) Negative (Negative) 07/31/23 18:36 Urine Ketones Negative (Negative) 07/31/23 18:36 Urine Blood Negative (Negative) 07/31/23 18:36 Urine Nitrite Negative (Negative) 07/31/23 18:36 Urine Bilirubin Negative (Negative) 07/31/23 18:36 Urine Urobilinogen Negative (Negative) 07/31/23 18:36 Ur Leukocyte Esterase Trace (Negative) H 07/31/23 18:36 Urine WBC (Auto) 1-5 /hpf (0-5) 07/31/23 18:36 Urine RBC (Auto) 0-4 /hpf (0-4) 07/31/23 18:36 U Hyaline Cast (Auto) 1-5 /lpf (0-5) 07/31/23 18:36 U Epithel Cells (Auto) >30 /lpf (0-5) H 07/31/23 18:36 Urine Bacteria (Auto) Negative (Negative) 07/31/23 18:36 Adenovirus (PCR) Not Detected (NotDetected) 07/31/23 18:36 B. pertussis DNA (PCR) Not Detected (NotDetected) 07/31/23 18:36 B.parapertussis DNA PCR Not Detected (NotDetected) 07/31/23 18:36 C. pneumoniae DNA (PCR) Not Detected (NotDetected) 07/31/23 18:36 Coronavirus OC43 (PCR) Not Detected (NotDetected) 07/31/23 18:36 Coronavirus HKU1 (PCR) Not Detected (NotDetected) 07/31/23 18:36 Coronavirus 229E (PCR) Not Detected (NotDetected) 07/31/23 18:36 SARS-CoV-2 (PCR) Not Detected (NotDetected) 07/31/23 18:36 Coronavirus NL63 (PCR) Not Detected (NotDetected) 07/31/23 18:36 Human Metapneumovir PCR Not Detected (NotDetected) 07/31/23 18:36 Influenza Type A (PCR) Not Detected (NotDetected) 07/31/23 18:36 Influenza Type B (PCR) Not Detected (NotDetected) 07/31/23 18:36 M. pneumoniae (PCR) Not Detected (NotDetected) 07/31/23 18:36 Parainfluenza 1 (PCR) Not Detected (NotDetected) 07/31/23 18:36 Parainfluenza 2 (PCR) Not Detected (NotDetected) 07/31/23 18:36 Parainfluenza 3 (PCR) Not Detected (NotDetected) 07/31/23 18:36 Parainfluenza 4 (PCR) Not Detected (NotDetected) 07/31/23 18:36 RSV (PCR) Not Detected (NotDetected) 07/31/23 18:36 Entero/Rhino (PCR) Not Detected (NotDetected) 07/31/23 18:36 Impressions Abdomen/Pelvis CT 07/31/23 21:13 Exam(s): CT ABDOMEN + PELVIS With Contrast IV Amt: 84 ml optiray 320 EXAM: CT Abdomen and Pelvis With Intravenous Contrast CLINICAL HISTORY: Reason for exam: L flank pain. TECHNIQUE: Axial computed tomography images of the abdomen and pelvis with intravenous contrast. Automated exposure control was utilized for the study. A dose lowering technique was utilized adhering to the principles of ALARA. CONTRAST: Patient received 84 ml optiray 320 of IV contrast COMPARISON: No relevant prior studies available. FINDINGS: Lung bases: Unremarkable. No mass. No consolidation. ABDOMEN: Liver: Unremarkable. No mass. Gallbladder and bile ducts: Cholelithiasis. No ductal dilation. Pancreas: Unremarkable. No mass. No ductal dilation. Spleen: Calcified splenic granulomas. Adrenals: Unremarkable. No mass. Kidneys and ureters: Unremarkable. No hydronephrosis or delayed nephrogram. Stomach and bowel: Diverticulosis, without acute diverticulitis. No bowel obstruction. No free air. PELVIS: Appendix: Appendectomy. Bladder: Unremarkable. No mass. Reproductive: Unremarkable as visualized. ABDOMEN and PELVIS: Intraperitoneal space: See above. Bones/joints: Degenerative changes of the spine. No acute fracture. No dislocation. Soft tissues: Unremarkable. Vasculature: Atherosclerotic changes of the aorta. No abdominal aortic aneurysm. Lymph nodes: Unremarkable. No enlarged lymph nodes. IMPRESSION: No acute findings in the abdomen or pelvis. Electronically signed by: Koby Anderson MD 07/31/23 21:39 PM ECG Additional Comments: ECG. Normal sinus rhythm with rate of 94. Inverted T waves in inferior leads Code Status & VTE Plan VTE Prophylaxis Plan VTE Prophylaxis will be ordered: Yes
[2023-08-01] MEDS ORDERED: NITROGLYCERIN SL 0.4 MG/TAB TAB SL PRN (00:30)
[2023-08-01] MEDS ORDERED: GLUCAGON FOR INJ 1 MG VIAL SQ PRN (00:30)
[2023-08-01] MEDS ORDERED: DEXTROSE 50% 50 ML SYRINGE IV PRN (00:30)
[2023-08-01] MEDS ORDERED: NON-FORMULARY MEDICATION (Cyclosporine [Restasis] 0.05 % Dropperette) OP SCH (00:30)
[2023-08-01] MEDS ORDERED: ARTIFICIAL TEARS OP PRN (00:30)
[2023-08-01] MEDS ORDERED: GLUCOSE 40% GEL 15 GM TUBE PO PRN (00:30)
[2023-08-01] MEDS ORDERED: GLUCOSE 10 TAB/TUBE PO PRN (00:30)
[2023-08-01] MEDS ORDERED: CARBOHYDRATES FOR HYPOGLYCEMIA PO PRN (00:30)
[2023-08-01] MEDS ORDERED: ACETAMINOPHEN 325 MG TAB PO PRN (00:30)
[2023-08-01] MEDS ORDERED: FLUTICASONE PROPIONATE NA SPR 16 GM BTL PRN (00:30)
[2023-08-01] MEDS ORDERED: ONDANSETRON INJ 2 MG/ML 2 ML VIAL IV PRN ×2 (00:30→10:43)
[2023-08-01] MEDS ORDERED: PIPERACILLIN/TAZOBACTAM 4.5 GM in DEXTROSE 5% MINI-B 100 ML IV STA (00:38)
--- NOTE | 2023-08-01 00:55 | CT Scan Report ---
Exam(s): CT HEAD Without Contrast EXAM: CT Head Without Intravenous Contrast CLINICAL HISTORY: Reason for exam: headache. TECHNIQUE: Axial computed tomography images of the head/brain without intravenous contrast. Automated exposure control was utilized for the study. A dose lowering technique was utilized adhering to the principles of ALARA. COMPARISON: No relevant prior studies available. FINDINGS: No acute intracranial hemorrhage. No midline shift or mass effect. The territorial to-white matter differentiation is maintained throughout. Age-related cerebral volume loss. Periventricular and subcortical white matter hypoattenuation, consistent with chronic microangiopathy. The visualized orbits appear grossly unremarkable. The calvarium is intact. LEFT paranasal sinus mucosal thickening. IMPRESSION: No acute intracranial hemorrhage, midline shift, or mass effect. Electronically signed by: Koby Anderson MD 08/01/23 00:54 AM
--- NOTE | 2023-08-01 00:56 | CT Scan Report ---
Exam(s): CT CHEST Without Contrast EXAM: CT Chest Without Intravenous Contrast CLINICAL HISTORY: Reason for exam: illness, cough. TECHNIQUE: Axial computed tomography images of the chest without intravenous contrast. Automated exposure control was utilized for the study. A dose lowering technique was utilized adhering to the principles of ALARA. COMPARISON: No relevant prior studies available. FINDINGS: Lungs: Mild dependent atelectasis. Old fracture of the RIGHT medial clavicle. No mass. Pleural space: Unremarkable. No pneumothorax. No significant effusion. Heart: Unremarkable. No cardiomegaly. No significant pericardial effusion. No significant coronary artery calcifications. Bones/joints: Degenerative changes of the spine. Soft tissues: Unremarkable. Vasculature: Atherosclerotic changes of the aorta, with coronary involvement. No thoracic aortic aneurysm. Lymph nodes: Unremarkable. No enlarged lymph nodes. Spleen: Calcified granuloma in the spleen. IMPRESSION: No acute findings in the chest. Electronically signed by: Koby Anderson MD 08/01/23 00:55 AM
[2023-08-01] MEDS: SODIUM CHLORIDE 0.9% 1,000 ML IV SCH ×4 (01:01→22:06)
[2023-08-01] MEDS: INSULIN ASPART PER UNIT CHARGE SC SCH ×5 (01:11→22:05)
[2023-08-01 04:31] LABS: Basophils # (auto) 0.04 K/uL (0.00-0.20); Basophils % (auto) 0.3 %; Eosinophils # (auto) 0.01 K/uL (0.00-0.50); Eosinophils % (auto) 0.1 %; Hematocrit (blood only) 33.8 % (37.0-47.0); Hemoglobin 11.7 g/dl (12.0-16.0); Immature Granulocytes # (auto) 0.13 K/uL (0.01-0.20); Lymphocytes # (auto) 0.49 K/uL (1.20-3.40); Lymphocytes % (auto) 3.8 %; Mean Corpuscular Hemoglobin 34.2 pg (25.0-34.0); Mean Corpuscular Hgb Conc 34.6 g/dL (32.0-36.0); Mean Corpuscular Volume 98.8 fL (80.0-100.0); Mean Platelet Volume 10.5 fL (9.4-12.4); Monocytes # (auto) 0.87 K/uL (0.11-0.59); Monocytes % (auto) 6.8 %; Neutrophils # (auto) 11.22 K/uL (1.40-6.50); Platelet Count 178 K/uL (130-400); RDW Coefficient of Variation 13.2 % (11.5-14.5); RDW Standard Deviation 46.7 fL (36.4-46.3); Red Blood Count 3.42 M/uL (4.20-5.40); White Blood Count 12.76 K/ul (4.8-10.8)
[2023-08-01 04:50] LABS: BUN Creatinine Ratio 27.1 (10-20); Calcium 7.8 mg/dl (8.6-10.3); Creatinine Clr Calc Pharmacy 63.9 ml/min; Est GFR (African American) 97.5 ml/min; Est GFR (Non-African American) 84.2 ml/min
[2023-08-01] MEDS: LEVOTHYROXINE SODIUM 100 MCG TABLET PO SCH (06:32)
[2023-08-01] MEDS ORDERED: SODIUM CHLORIDE 0.9% 500 ML IV SCH (07:15)
[2023-08-01] MEDS: HYDROmorphone INJ 0.5 MG/0.5 ML SYR IV PRN ×2 (07:17→14:24)
[2023-08-01] MEDS: PIPERACILLIN/TAZOBACTAM 4.5 GM in DEXTROSE 5% MINI-B 100 ML IV SCH ×3 (07:19→22:07)
--- NOTE | 2023-08-01 07:40 | XRay Report ---
XR chest 1V portable HISTORY: weakness COMPARISON: None. FINDINGS: No pneumothorax. No pleural effusions. Mild interstitial thickening. This is likely chronic . The heart is mildly enlarged. No evidence for pulmonary edema. No acute fractures. Cervical spinal fusion hardware is noted. IMPRESSION: Cardiomegaly and mild interstitial thickening. This is likely chronic. ACT 112: Negative or not required by law. Electronically signed by: Javier Gonzalez M.D. 08/01/2023 7:39 AM
[2023-08-01 08:09] LABS: Albumin Level 3.3 gm/dl (3.4-5.0); Bilirubin Direct 0.3 mg/dl (0-0.2); Bilirubin,Total 0.8 mg/dl (0.2-1.0); Total Protein 5.9 gm/dl (6.0-8.3)
--- NOTE | 2023-08-01 08:25 | Anesthesiology Consultation ---
Date of Service August 01, 2023 Assessment & Plan Chart Review Chart Review: medical charge entry specialist initiated History Surgery Operation Date: 08/01/23 09:55 Proposed Procedures p Endoscopic Ultrasonography Deshawn - Hernan Ross DO Height/Weight Height: 5 ft 3 in Weight: 69.5 kg Allergies Allergy/AdvReac Type Severity Reaction Status Date / Time gabapentin AdvReac EYES BLEED Verified 07/31/23 19:43 Medications Home Medications Medication Instructions Recorded Confirmed Last Taken aspirin 81 mg tablet,delayed 81 mg PO DAILY 07/31/23 07/31/23 Unknown release clobetasol 0.05 % topical cream 1 applic topical DIRECTED PRN 07/31/23 07/31/23 Unknown .FLARE UPS clopidogrel 75 mg tablet 75 mg PO DAILY 07/31/23 07/31/23 Unknown cyanocobalamin (vitamin B-12) 1,000 mcg PO DAILY 07/31/23 07/31/23 Unknown 1,000 mcg tablet (Vitamin B-12) cyclosporine 0.05 % eye drops in a 1 drp ophthalmic (eye) Q12H 07/31/23 07/31/23 Unknown dropperette (Restasis) fluticasone propionate 50 2 spray intranasal DAILY PRN Nasal 07/31/23 07/31/23 Unknown mcg/actuation nasal Congestion spray,suspension (Flonase Allergy Relief) lactobacillus combination no.4 3 0 mmu cells PO DAILY 07/31/23 07/31/23 Unknown billion cell capsule (Probiotic) levothyroxine 100 mcg tablet 100 mcg PO QAM 07/31/23 07/31/23 Unknown metoprolol tartrate 25 mg tablet 25 mg PO BID 07/31/23 08/01/23 Unknown multivitamin 1 tab PO DAILY 07/31/23 07/31/23 Unknown nitroglycerin 0.4 mg sublingual 0.4 mg sublingual DIRECTED PRN 07/31/23 07/31/23 Unknown tablet .CHEST PAIN omeprazole 20 mg capsule,delayed 20 mg PO DAILY 07/31/23 07/31/23 Unknown release polyvinyl alcohol 1.4 % eye drops 1 drp ophthalmic (eye) QID PRN 07/31/23 07/31/23 Unknown .DRY EYES potassium chloride 10 mEq 10 meq PO DAILY 07/31/23 07/31/23 Unknown capsule,extended release rosuvastatin 20 mg tablet 20 mg PO DAILY 07/31/23 07/31/23 Unknown Active Medications Generic Name Dose Route Start Last Admin Trade Name Robbin PRN Reason Stop Dose Admin Hydromorphone HCl 0.5 mg 08/01/23 00:30 08/01/23 07:17 Hydromorphone Inj 0.5 Mg/0.5 Ml Syr IV 08/15/23 00:29 0.5 mg Q3H PRN Administration Pain Piperacillin Sod/Tazobactam 100 mls @ 25 mls/hr 08/01/23 06:00 08/01/23 07:19 Sod 4.5 gm/ Dextrose IV 08/11/23 05:59 25 mls/hr Q8H KORIN Administration Protocol Sodium Chloride 1,000 mls @ 125 mls/hr 08/01/23 00:30 08/01/23 01:01 Nss IV 08/31/23 00:29 125 mls/hr .Q8H KORIN Administration Insulin Aspart 0 units 08/01/23 00:30 08/01/23 06:31 Insulin Aspart Per Unit Charge SC 08/31/23 00:29 1 units Q6 KORIN Administration Levothyroxine Sodium 100 mcg 08/01/23 06:30 08/01/23 06:32 Levothyroxine Sodium 100 Mcg Tablet PO 08/31/23 06:29 100 mcg DAILYBB KORIN Administration Social History Smoking Status: Never smoker Hx Alcohol Use: No Hx Substance Use: No Physical Exam Vital Signs Last Vital Signs Temp 97.7 F 08/01/23 01:06 Pulse 91 H 08/01/23 08:00 Resp 17 08/01/23 08:00 BP 109/60 08/01/23 08:00 Pulse Ox 94 08/01/23 08:00 O2 Del Method Room Air 08/01/23 04:11 Testing Laboratory Results 08/01/23 04:12 08/01/23 04:12 Urine Color Dark Yellow 07/31/23 18:36 Urine Appearance Clear (Clear) 07/31/23 18:36 Urine pH 5.0 (4.5-7.5) 07/31/23 18:36 Ur Specific [place] 1.013 (1.000-1.030) 07/31/23 18:36 Urine Protein Trace (Negative) H 07/31/23 18:36 Urine Glucose (UA) Negative (Negative) 07/31/23 18:36 Urine Ketones Negative (Negative) 07/31/23 18:36 Urine Nitrite Negative (Negative) 07/31/23 18:36 Ur Leukocyte Esterase Trace (Negative) H 07/31/23 18:36 Urine WBC (Auto) 1-5 /hpf (0-5) 07/31/23 18:36 Urine RBC (Auto) 0-4 /hpf (0-4) 07/31/23 18:36 U Hyaline Cast (Auto) 1-5 /lpf (0-5) 07/31/23 18:36 U Epithel Cells (Auto) >30 /lpf (0-5) H 07/31/23 18:36 Urine Bacteria (Auto) Negative (Negative) 07/31/23 18:36 08/01/23 08/01/23 06:17 01:04 POC Glucose 137 H 144 H Electrocardiogram Date: 07/31/23 Normal sinus rhythm, rate 94 bpm Normal ECG When compared with ECG of 09-OCT-2014 09:56, Inverted T waves have replaced nonspecific T wave abnormality in Inferior leads Chest X-Ray Date: 07/31/23 IMPRESSION: Cardiomegaly and mild interstitial thickening. This is likely chronic.
[2023-08-01] MEDS: ASPIRIN 81 MG ECTAB PO SCH (08:59)
[2023-08-01] MEDS: CLOPIDOGREL BISULFATE 75 MG TAB PO SCH (08:59)
[2023-08-01] MEDS: CYANOCOBALAMIN (B-12) 500 MCG TABLET PO SCH (09:00)
[2023-08-01] MEDS ORDERED: METOPROLOL TARTRATE 25 MG TAB PO SCH ×2 (09:00)
[2023-08-01] MEDS ORDERED: ENOXAPARIN INJ 40 MG/0.4 ML SYR SQ SCH (09:00)
[2023-08-01] MEDS: POTASSIUM CHLORIDE 10 MEQ TABCR PO SCH (09:01)
[2023-08-01] MEDS: MULTIVITAMIN TAB PO SCH (09:01)
[2023-08-01] MEDS: ROSUVASTATIN CALCIUM 20 MG TAB PO SCH (09:01)
--- NOTE | 2023-08-01 09:25 | Gastrointestinal Consultation ---
Date of Consultation August 01, 2023 Assessment & Plan (1) Abdominal pain: (2) Cholelithiasis: Pt is a 78 yo female w recent rhinovirus/enterovirus infection, and pneumonia s/p antibiotic treatment seen for abd pain, n/v symptoms. + cholelithiasis on CT abd/pelvis wo elevated LFTs or biliary ductal dilation. Does have RUQ pain on abd exam. - NPO - Plan for EUS today to r/o biliary stones - Continue Zosyn IV - F/U blood cx results - Further GI recs after procedure completed Supervising Physician Co-Signing Physician Notes I saw and evaluated the patient, we are consulted for evaluation of epigastric pain in addition to nausea and vomiting. Of note the patient did have a significant elevation of her liver associated enzymes around 16 July when she was seen at [facility]. Recent procedures including colonoscopy done by Dr. Walter notable for several colonic polyps. Impression: Patient with intermittent discomfort, based on the history I wonder if she may have symptoms related to cholelithiasis. I would suggest we do further evaluation with upper endoscopy and endoscopic ultrasound to screen for choledocholithiasis, if positive for choledocholithiasis we have consented the patient for ERCP. Risks of the procedures have been discussed with the patient to include bleeding infection perforation pain pancreatitis failed biliary cannulation and the need for follow-up studies. History of Present Illness Reason for Consultation: Abd pain, n/v. Requesting Physician: Dr. Kuldeep Lopez Attending Physician: Dr. Hernan oRss History of Present Illness Pt is a 78 yo female w PMHx of gangrenous colon s/p partial colon resection, DM II, hypothyroidism, CAD s/p stent placements on ASA and Plavix, HTN, PVT, GERD, Vit B12 deficiency, epiglottic appenditis, cervical radiculitis, vascular leukoencephalopathy, circumscribed scleroderma, anxiety, who presented w c/o N/V, abd pain symptoms. She was having fever, vomiting around [place] day and found to have Rhinovirus/Enterovirus. DC'd from [place] but returned on 07/18 w persistent symptoms, then found to have pneumonia. He had been on Augmetin and Azithromycin which she completed yesterday. She felt that abd pain, n/v did not completely resolve. On workup, she was noted to have leukocytosis w increased lactic acid. LFTs normal. CT abd/pelvis w cholelithiasis but no acute inflammatory changes, or CBD dilation. Head and chest CT unremarkable. Last colonoscopy 2021 - ileocolonic anastomosis healthy, hyperplastic colon polyp Allergies Allergy/AdvReac Type Severity Reaction Status Date / Time gabapentin AdvReac EYES BLEED Verified 07/31/23 19:43 Home Medications Medication Instructions Recorded Confirmed Type aspirin 81 mg tablet,delayed 81 mg PO DAILY 07/31/23 07/31/23 History release clobetasol 0.05 % topical cream 1 applic topical DIRECTED PRN 07/31/23 07/31/23 History .FLARE UPS clopidogrel 75 mg tablet 75 mg PO DAILY 07/31/23 07/31/23 History cyanocobalamin (vitamin B-12) 1,000 mcg PO DAILY 07/31/23 07/31/23 History 1,000 mcg tablet (Vitamin B-12) cyclosporine 0.05 % eye drops in a 1 drp ophthalmic (eye) Q12H 07/31/23 07/31/23 History dropperette (Restasis) fluticasone propionate 50 2 spray intranasal DAILY PRN Nasal 07/31/23 07/31/23 History mcg/actuation nasal Congestion spray,suspension (Flonase Allergy Relief) lactobacillus combination no.4 3 0 mmu cells PO DAILY 07/31/23 07/31/23 History billion cell capsule (Probiotic) levothyroxine 100 mcg tablet 100 mcg PO QAM 07/31/23 07/31/23 History metoprolol tartrate 25 mg tablet 25 mg PO BID 07/31/23 08/01/23 History multivitamin 1 tab PO DAILY 07/31/23 07/31/23 History nitroglycerin 0.4 mg sublingual 0.4 mg sublingual DIRECTED PRN 07/31/23 07/31/23 History tablet .CHEST PAIN omeprazole 20 mg capsule,delayed 20 mg PO DAILY 07/31/23 07/31/23 History release polyvinyl alcohol 1.4 % eye drops 1 drp ophthalmic (eye) QID PRN 07/31/23 07/31/23 History .DRY EYES potassium chloride 10 mEq 10 meq PO DAILY 07/31/23 07/31/23 History capsule,extended release rosuvastatin 20 mg tablet 20 mg PO DAILY 07/31/23 07/31/23 History Patient History Social History (Reviewed 08/01/23 @ 09:22 by DEJON Eng Smoking Status: Never smoker Hx Alcohol Use: No Hx Substance Use: No Preferred Language: [place] Communication Ability: Effective Machine Ii Coremaker Required: No Beliefs That Will Affect Care: None Current Living Situation: Alone Current Living Situation Comment: Home Other Information That Helps Us Care for You: Yes (room cool at night, no socks in bed please) Feels Safe at Home: Yes Safety Concerns: Feels Safe At This Time Assistive Devices: Other Assistive Devices Comment: Reading glasses, partial dentures Review of Systems Review of Systems: All systems reviewed & are unremarkable except as noted in HPI & below Physical Exam Constitutional: WD/WN, vitals as above well groomed, cooperative and comfortable Eyes: PERRL, conjunctivae normal, anicteric sclerae ENMT: external ear and nose normal, oropharynx normal Respiratory: normal respiratory effort, lungs clear to auscultation Cardiovascular: RRR, no murmur, no edema Gastrointestinal (Abdomen): RUQ abd pain, soft, BS present Skin: no rashes, warm and dry no jaundice Psychiatric: A+Ox3, euthymic affect Lymphatic: no lymphedema Results & Data Vital Signs (Past 12 Hours) Vital Signs Temp Pulse Pulse Resp BP BP Pulse Ox 08/01/23 08:32 107/63 08/01/23 08:32 101 H 24 98 08/01/23 08:30 94 H 21 96 08/01/23 08:00 109/60 08/01/23 08:00 91 H 17 94 08/01/23 07:30 95 H 18 93 08/01/23 07:30 94/54 L 08/01/23 07:00 91 H 21 93 08/01/23 07:00 108/63 08/01/23 06:55 92 H 08/01/23 06:40 91 H 26 H 95 08/01/23 06:35 99/56 L 08/01/23 06:35 95 H 21 95 08/01/23 06:30 90 18 95 08/01/23 06:30 88/58 L 08/01/23 06:20 97 H 23 93 08/01/23 06:10 98 H 20 90 08/01/23 06:00 96 H 22 90 08/01/23 06:00 88/45 L 01/10/24 05:50 95 H 21 91 01/10/24 05:40 99 H 23 92 08/01/23 05:30 93/50 L 08/01/23 05:30 98 H 22 92 08/01/23 05:20 98 H 19 94 08/01/23 05:10 97 H 22 90 08/01/23 05:00 96 H 20 91 08/01/23 05:00 91/45 L 08/01/23 04:50 96 H 21 91 08/01/23 04:40 95 H 20 91 08/01/23 04:30 92 H 21 92 08/01/23 04:30 98/53 L 08/01/23 04:20 91 H 20 91 08/01/23 04:11 08/01/23 04:10 92 H 19 95 08/01/23 04:00 95/58 L 08/01/23 04:00 93 H 21 91 08/01/23 03:50 97 08/01/23 03:40 91 H 21 96 08/01/23 03:30 94 H 21 94 08/01/23 03:30 98/59 L 08/01/23 03:20 91 H 20 95 08/01/23 03:10 93 H 23 94 08/01/23 03:00 93 H 21 94 08/01/23 03:00 99/59 L 08/01/23 02:50 92 H 21 95 08/01/23 02:40 94 H 19 94 08/01/23 02:30 105/58 L 08/01/23 02:30 87 23 95 08/01/23 02:20 94 H 24 93 08/01/23 02:10 94 H 22 95 08/01/23 02:00 94 H 21 93 08/01/23 02:00 105/73 08/01/23 01:50 93 H 23 95 08/01/23 01:40 92 H 21 96 08/01/23 01:33 91 H 18 98/54 L 95 08/01/23 01:30 90 18 94 08/01/23 01:30 98/54 L 08/01/23 01:26 106/56 L 08/01/23 01:26 90 12 96 08/01/23 01:10 93 H 23 93 08/01/23 01:06 08/01/23 01:06 36.5 C 69 12 86/53 L 98 08/01/23 01:00 94 H 23 95 08/01/23 01:00 86/53 L 08/01/23 00:53 97 H 24 95 08/01/23 00:53 99/50 L 08/01/23 00:51 104 H 15 08/01/23 00:30 102 H 18 94 08/01/23 00:30 92/76 L 08/01/23 00:20 103 H 22 92 08/01/23 00:16 105 H 12 100/57 L 98 08/01/23 00:10 101 H 16 93 08/01/23 00:00 100/57 L 08/01/23 00:00 104 H 16 94 07/31/23 23:50 104 H 20 94 07/31/23 23:40 101 H 20 90 07/31/23 23:30 98 H 21 94 07/31/23 23:30 101/62 07/31/23 23:20 101 H 25 H 94 07/31/23 23:10 104 H 20 95 07/31/23 23:00 96/53 L 07/31/23 23:00 103 H 22 93 07/31/23 22:50 102 H 29 H 93 07/31/23 22:40 106 H 23 94 07/31/23 22:36 107 H 12 97/58 L 98 07/31/23 22:30 97/58 L 07/31/23 22:30 105 H 21 93 07/31/23 22:20 105 H 23 94 07/31/23 22:10 106 H 24 93 07/31/23 21:54 104 H Pulse Ox O2 Del Method O2 Del Method 08/01/23 08:32 08/01/23 08:32 08/01/23 08:30 08/01/23 08:00 08/01/23 08:00 08/01/23 07:30 08/01/23 07:30 08/01/23 07:00 08/01/23 07:00 08/01/23 06:55 08/01/23 06:40 08/01/23 06:35 08/01/23 06:35 08/01/23 06:30 08/01/23 06:30 08/01/23 06:20 08/01/23 06:10 08/01/23 06:00 08/01/23 06:00 08/01/23 05:50 08/01/23 05:40 08/01/23 05:30 08/01/23 05:30 08/01/23 05:20 08/01/23 05:10 08/01/23 05:00 08/01/23 05:00 08/01/23 04:50 08/01/23 04:40 08/01/23 04:30 08/01/23 04:30 08/01/23 04:20 08/01/23 04:11 Room Air 08/01/23 04:10 08/01/23 04:00 08/01/23 04:00 08/01/23 03:50 08/01/23 03:40 08/01/23 03:30 08/01/23 03:30 08/01/23 03:20 08/01/23 03:10 08/01/23 03:00 08/01/23 03:00 08/01/23 02:50 08/01/23 02:40 08/01/23 02:30 08/01/23 02:30 08/01/23 02:20 08/01/23 02:10 08/01/23 02:00 08/01/23 02:00 08/01/23 01:50 08/01/23 01:40 08/01/23 01:33 Room Air 08/01/23 01:30 08/01/23 01:30 08/01/23 01:26 08/01/23 01:26 08/01/23 01:10 08/01/23 01:06 98 Room Air 08/01/23 01:06 Room Air 08/01/23 01:00 08/01/23 01:00 08/01/23 00:53 08/01/23 00:53 08/01/23 00:51 08/01/23 00:30 08/01/23 00:30 08/01/23 00:20 08/01/23 00:16 Room Air 08/01/23 00:10 08/01/23 00:00 08/01/23 00:00 07/31/23 23:50 07/31/23 23:40 07/31/23 23:30 07/31/23 23:30 07/31/23 23:20 07/31/23 23:10 07/31/23 23:00 07/31/23 23:00 07/31/23 22:50 07/31/23 22:40 07/31/23 22:36 Room Air 07/31/23 22:30 07/31/23 22:30 07/31/23 22:20 07/31/23 22:10 07/31/23 21:54
--- NOTE | 2023-08-01 09:38 | Electrocardiogram Report ---
Test Reason : Blood Pressure : / mmHG Vent. Rate : 094 BPM Atrial Rate : 094 BPM P-R Int : 128 ms QRS Dur : 076 ms QT Int : 364 ms P-R-T Axes : 032 002 009 degrees QTc Int : 455 ms Normal sinus rhythm Normal ECG When compared with ECG of 09-OCT-2014 09:56, No significant change Confirmed by Andrew Doll ([id number] on 08/01/2023 9:37:58 AM Referred By: REFERRED SELF Confirmed By:Andrew Doll
[2023-08-01] MEDS ORDERED: MIDAZOLAM HCL 1 MG/ML 2ML VIAL ONE (10:01)
[2023-08-01] MEDS ORDERED: fentaNYL citrate PF 100 MCG/2 ML VIAL ONE (10:02)
--- NOTE | 2023-08-01 10:40 | Hospitalist Progress Note ---
Date of Service August 01, 2023 Assessment & Plan (1) Abdominal pain: Plan: 78 yo F w/ type 2 diabetes seems not on medication, hypothyroidism, chronic recurrent sinusitis, history of CAD s/p stents in February 2023, hypertension, paroxysmal supraventricular tachycardia, GERD, vitamin B12 deficiency, epiglottic appendagitis urinary incontinence, generalized osteoarthritis, cervical radiculitis, chronic abdominal pain, progressive vascular leukoencephalopathy, circumscribed scleroderma, s/p cervical fusion surgery, general anxiety disorder, ambulatory dysfunction presents with ongoing nausea vomiting abdominal pain diarrhea and hip pain. Patient was seen at [facility] on with fever and vomiting and burning micturition and found to RSV and was discharged home. She went back to [facility] in July 18 with persistent symptoms and chest x-ray possible pneumonia and her initial lactic acid was 2.6 and repeat is 1.6 and she was discharged on Augmentin and azithromycin. She finished antibiotics yesterday. Again starting developing nausea vomiting severe abdominal pain and hip pain and pain radiating to groins which prompted her to come to the ER today. Hemodynamically stable. Initial lactic acid was 4.3. Repeat lactic is 2.8. Complains of some burning micturition. She was given Rocephin. CT abdomen pelvis is okay. No leukocytosis. Afebrile. States sometimes gets headache. Vision is okay. She has some chronic left-sided neck pain and jaw pain from history of dental infection. No neck stiffness. Still nauseous. Denies any chest pain. No shortness of breath. No cough. No blood in the stools. Hemodynamics okay. Abdominal pain Nausea vomiting diarrhea Going on since time Just finished antibiotics Augmentin and azithromycin for possible pneumonia Initial lactic was 4.2 and repeat is 2.8 Elevated procalcitonin at 8 No obvious source of infection identified No leukocytosis initially on admission - WBC 8.5K, now up at 12.7k UA is negative Chest x-ray w/some interstitial thickening, seems chronic Empirically started on Zosyn, which will be continued IV Protonix IV fluids IV pain meds as needed Will follow blood cultures and stool studies GI consulted for further recommendations - per GI - Impression: Patient with intermittent discomfort, based on the history I wonder if she may have symptoms related to cholelithiasis. I would suggest we do further evaluation with upper endoscopy and endoscopic ultrasound to screen for choledocholithiasis, if positive for choledocholithiasis we have consented the patient for ERCP. Elevated lactic acidosis CT abdomen pelvis okay As patient has had some headache obtained CT head and some cough obtained CT of the chest CT head negative CT chest - negative Follow repeat labs Antibiotics as above History of CAD s/p stents in February 2023 Continue home aspirin, Plavix, beta-andreia and statin Hypertension On metoprolol Will monitor Hyperlipidemia On statin Diabetes Not on medications Follow HbA1c levels Sliding scale Hypothyroidism On Synthyroid Follow TSH History of SVT On metoprolol DVT prophylaxis Lovenox Disposition Med/tele Full code Admission and Anticipated Discharge Date Admission Date: August 01, 2023 Subjective Pt seen in follow up of abd. pain, n/v , recent URI, current Biofire negative, lactic acid elevated, UA negative Was started on IV zosyn, GI consulted Currently sitting up in bed in [facility], reports having abd. discomfort, no chest pain or shortness of breath. Had coronary stent placed reportedly about 6 months ago. Says she was supposed to have endoscopy in August. Plan for endoscopy by GI today Review of Systems Review of Systems: All systems reviewed & are unremarkable except as noted in Subjective Physical Exam Physical Exam: General- WD/WN F in NAD Head- atraumatic Eyes- EOMI, PERRL. Neck- supple, no JVD. Lungs- clear to auscultation no wheezing or crackles. Heart- regular rhythm; no murmur, no gallop. Abdomen- normal bowel sounds, soft, mild diffuse tender more in epigastric region, no distension. Extremities- no pretibial edema, no erythema seen Neuro- alert, oriented x 3; PERRL, no facial palsy; no dysarthria; moves extremities. Skin- warm & dry Results & Data Results & Data Vital Signs (Past 12 Hours) Vital Signs Temp Pulse Pulse Resp BP BP BP 08/01/23 10:23 36.9 C 98 H 18 148/70 H 08/01/23 09:56 113/54 L 08/01/23 09:56 90 15 08/01/23 09:30 08/01/23 09:00 95 H 18 08/01/23 09:00 109/57 L 08/01/23 08:32 107/63 08/01/23 08:32 101 H 24 08/01/23 08:30 94 H 21 08/01/23 08:00 109/60 08/01/23 08:00 91 H 17 08/01/23 07:30 95 H 18 08/01/23 07:30 94/54 L 08/01/23 07:00 91 H 21 08/01/23 07:00 108/63 08/01/23 06:55 92 H 08/01/23 06:40 91 H 26 H 08/01/23 06:35 99/56 L 08/01/23 06:35 95 H 21 08/01/23 06:30 90 18 08/01/23 06:30 88/58 L 08/01/23 06:20 97 H 23 08/01/23 06:10 98 H 08/01/23 06:00 96 H 08/01/23 06:00 88/45 L 08/01/23 05:50 95 H 08/01/23 05:40 99 H 08/01/23 05:30 93/50 L 08/01/23 05:30 98 H 08/01/23 05:20 98 H 08/01/23 05:10 97 H 08/01/23 05:00 96 H 08/01/23 05:00 91/45 L 08/01/23 04:50 96 H 08/01/23 04:40 95 H 08/01/23 04:30 92 H 08/01/23 04:30 98/53 L 08/01/23 04:20 91 H 08/01/23 04:11 08/01/23 04:10 92 H 08/01/23 04:00 95/58 L 08/01/23 04:00 93 H 08/01/23 03:50 08/01/23 03:40 91 H 08/01/23 03:30 94 H 08/01/23 03:30 98/59 L 08/01/23 03:20 91 H 08/01/23 03:10 93 H 08/01/23 03:00 93 H 08/01/23 03:00 99/59 L 08/01/23 02:50 92 H 08/01/23 02:40 94 H 08/01/23 02:30 105/58 L 01/10/24 02:30 87 23 08/01/23 02:20 94 H 24 08/01/23 02:10 94 H 22 08/01/23 02:00 94 H 21 08/01/23 02:00 105/73 08/01/23 01:50 93 H 23 08/01/23 01:40 92 H 21 08/01/23 01:33 91 H 18 98/54 L 08/01/23 01:30 90 18 08/01/23 01:30 98/54 L 08/01/23 01:26 106/56 L 08/01/23 01:26 90 12 08/01/23 01:10 93 H 23 08/01/23 01:06 08/01/23 01:06 36.5 C 69 12 86/53 L 08/01/23 01:00 94 H 23 08/01/23 01:00 86/53 L 08/01/23 00:53 97 H 24 08/01/23 00:53 99/50 L 08/01/23 00:51 104 H 15 08/01/23 00:30 102 H 18 08/01/23 00:30 92/76 L 08/01/23 00:20 103 H 22 08/01/23 00:16 105 H 12 100/57 L 08/01/23 00:10 101 H 16 08/01/23 00:00 100/57 L 08/01/23 00:00 104 H 16 07/31/23 23:50 104 H 20 07/31/23 23:40 101 H 20 07/31/23 23:30 98 H 21 07/31/23 23:30 101/62 07/31/23 23:20 101 H 25 H 07/31/23 23:10 104 H 20 07/31/23 23:00 96/53 L 07/31/23 23:00 103 H 22 07/31/23 22:50 102 H 29 H 07/31/23 22:40 106 H 23 Pulse Ox Pulse Ox O2 Del Method O2 Del Method 08/01/23 10:23 95 Room Air 08/01/23 09:56 08/01/23 09:56 95 Room Air 08/01/23 09:30 94 08/01/23 09:00 95 08/01/23 09:00 08/01/23 08:32 08/01/23 08:32 98 08/01/23 08:30 96 08/01/23 08:00 08/01/23 08:00 94 08/01/23 07:30 93 08/01/23 07:30 08/01/23 07:00 93 08/01/23 07:00 08/01/23 06:55 08/01/23 06:40 95 08/01/23 06:35 08/01/23 06:35 95 08/01/23 06:30 95 08/01/23 06:30 08/01/23 06:20 93 08/01/23 06:10 90 08/01/23 06:00 90 08/01/23 06:00 08/01/23 05:50 91 08/01/23 05:40 92 08/01/23 05:30 08/01/23 05:30 92 08/01/23 05:20 94 08/01/23 05:10 90 08/01/23 05:00 91 08/01/23 05:00 08/01/23 04:50 91 08/01/23 04:40 91 08/01/23 04:30 92 08/01/23 04:30 08/01/23 04:20 91 08/01/23 04:11 Room Air 08/01/23 04:10 95 08/01/23 04:00 08/01/23 04:00 91 08/01/23 03:50 97 08/01/23 03:40 96 08/01/23 03:30 94 08/01/23 03:30 08/01/23 03:20 95 08/01/23 03:10 94 08/01/23 03:00 94 08/01/23 03:00 08/01/23 02:50 95 08/01/23 02:40 94 08/01/23 02:30 08/01/23 02:30 95 08/01/23 02:20 93 08/01/23 02:10 95 08/01/23 02:00 93 08/01/23 02:00 08/01/23 01:50 95 08/01/23 01:40 96 08/01/23 01:33 95 Room Air 08/01/23 01:30 94 08/01/23 01:30 08/01/23 01:26 08/01/23 01:26 96 08/01/23 01:10 93 08/01/23 01:06 98 Room Air 08/01/23 01:06 98 Room Air 08/01/23 01:00 95 08/01/23 01:00 08/01/23 00:53 95 08/01/23 00:53 08/01/23 00:51 08/01/23 00:30 94 08/01/23 00:30 08/01/23 00:20 92 08/01/23 00:16 98 Room Air 08/01/23 00:10 93 08/01/23 00:00 08/01/23 00:00 94 07/31/23 23:50 94 07/31/23 23:40 90 07/31/23 23:30 94 07/31/23 23:30 07/31/23 23:20 94 07/31/23 23:10 95 07/31/23 23:00 07/31/23 23:00 93 07/31/23 22:50 93 07/31/23 22:40 94 Laboratory Results 08/01/23 08/01/23 08/01/23 Range/Units 06:17 04:12 01:04 WBC 12.76 H (4.8-10.8) K/ul RBC 3.42 L (4.20-5.40) M/uL Hgb 11.7 L (12.0-16.0) g/dl Hct 33.8 L (37.0-47.0) % MCV 98.8 (80.0-100.0) fL MCH 34.2 H (25.0-34.0) pg MCHC 34.6 (32.0-36.0) g/dL RDW Std Deviation 46.7 H (36.4-46.3) fL RDW Coeff of Ronit 13.2 (11.5-14.5) % Plt Count 178 (130-400) K/uL MPV 10.5 (9.4-12.4) fL Immature Gran % (Auto) 1.0 % Neut % (Auto) 88.0 % Lymph % (Auto) 3.8 % Lyman % (Auto) 6.8 % Eos % (Auto) 0.1 % Baso % (Auto) 0.3 % Neut # (Auto) 11.22 H (1.40-6.50) K/uL Lymph # (Auto) 0.49 L (1.20-3.40) K/uL Lyman # (Auto) 0.87 H (0.11-0.59) K/uL Eos # (Auto) 0.01 (0.00-0.50) K/uL Baso # (Auto) 0.04 (0.00-0.20) K/uL Immature Gran # (Auto) 0.13 (0.01-0.20) K/uL Sodium 137 (136-145) mmol/L Potassium 4.0 D (3.5-5.1) mmol/L Chloride 108 H (98-107) mmol/L Carbon Dioxide 20 L (21-32) mmol/L Anion Gap 9 (3-11) BUN 19 (6-23) mg/dl Creatinine 0.70 (0.6-1.2) mg/dl Est Cr Clr Drug Dosing 63.9 ml/min Est GFR ( Amer) 97.5 ml/min Est GFR (Non-Af Amer) 84.2 ml/min BUN/Creatinine Ratio 27.1 H (10-20) Glucose 153 H (70-99(Fasting)) mg/dl POC Glucose 137 H 144 H (70-99) mg/dl Lactate 2.8 H* (0.4-2.0) mmol/L Calcium 7.8 L D (8.6-10.3) mg/dl Magnesium 2.0 (1.7-2.4) mg/dl Total Bilirubin 0.8 (0.2-1.0) mg/dl Direct Bilirubin 0.3 H (0-0.2) mg/dl AST 33 (13-39) U/L ALT 22 (7-52) U/L Alkaline Phosphatase 49 (34-104) U/L Total Protein 5.9 L (6.0-8.3) gm/dl Albumin 3.3 L (3.4-5.0) gm/dl Globulin (2.5-4.0) gm/dl Albumin/Globulin Ratio (0.9-2) Procalcitonin (0-0.5) ng/ml TSH (0.300-4.500) uIu/ml Urine Color Urine Appearance (Clear) Urine pH (4.5-7.5) Ur Specific [place] (1.000-1.030) Urine Protein (Negative) Urine Glucose (UA) (Negative) Urine Ketones (Negative) Urine Blood (Negative) Urine Nitrite (Negative) Urine Bilirubin (Negative) Urine Urobilinogen (Negative) Ur Leukocyte Esterase (Negative) Urine WBC (Auto) (0-5) /hpf Urine RBC (Auto) (0-4) /hpf U Hyaline Cast (Auto) (0-5) /lpf U Epithel Cells (Auto) (0-5) /lpf Urine Bacteria (Auto) (Negative) Adenovirus (PCR) (NotDetected) B. pertussis DNA (PCR) (NotDetected) B.parapertussis DNA PCR (NotDetected) C. pneumoniae DNA (PCR) (NotDetected) Coronavirus OC43 (PCR) (NotDetected) Coronavirus HKU1 (PCR) (NotDetected) Coronavirus 229E (PCR) (NotDetected) SARS-CoV-2 (PCR) (NotDetected) Coronavirus NL63 (PCR) (NotDetected) Human Metapneumovir PCR (NotDetected) Influenza Type A (PCR) (NotDetected) Influenza Type B (PCR) (NotDetected) M. pneumoniae (PCR) (NotDetected) Parainfluenza 1 (PCR) (NotDetected) Parainfluenza 2 (PCR) (NotDetected) Parainfluenza 3 (PCR) (NotDetected) Parainfluenza 4 (PCR) (NotDetected) RSV (PCR) (NotDetected) Entero/Rhino (PCR) (NotDetected) 07/31/23 07/31/23 Range/Units 20:17 18:36 WBC 8.54 (4.8-10.8) K/ul RBC 4.22 (4.20-5.40) M/uL Hgb 14.2 (12.0-16.0) g/dl Hct 41.1 (37.0-47.0) % MCV 97.4 (80.0-100.0) fL MCH 33.6 (25.0-34.0) pg MCHC 34.5 (32.0-36.0) g/dL RDW Std Deviation 45.0 (36.4-46.3) fL RDW Coeff of Ronit 12.7 (11.5-14.5) % Plt Count 215 (130-400) K/uL MPV 10.1 (9.4-12.4) fL Immature Gran % (Auto) 1.1 % Neut % (Auto) 94.0 % Lymph % (Auto) 4.0 % Lyman % (Auto) 0.2 % Eos % (Auto) 0.5 % Baso % (Auto) 0.2 % Neut # (Auto) 8.03 H (1.40-6.50) K/uL Lymph # (Auto) 0.34 L (1.20-3.40) K/uL Lyman # (Auto) 0.02 L (0.11-0.59) K/uL Eos # (Auto) 0.04 (0.00-0.50) K/uL Baso # (Auto) 0.02 (0.00-0.20) K/uL Immature Gran # (Auto) 0.09 (0.01-0.20) K/uL Sodium 138 (136-145) mmol/L Potassium 3.2 L (3.5-5.1) mmol/L Chloride 103 (98-107) mmol/L Carbon Dioxide 23 (21-32) mmol/L Anion Gap 12 H (3-11) BUN 25 H (6-23) mg/dl Creatinine 0.88 (0.6-1.2) mg/dl Est Cr Clr Drug Dosing 50.9 ml/min Est GFR ( Amer) 74.0 ml/min Est GFR (Non-Af Amer) 63.8 ml/min BUN/Creatinine Ratio 28.4 H (10-20) Glucose 127 H (70-99(Fasting)) mg/dl POC Glucose (70-99) mg/dl Lactate 2.8 H* 4.3 H* (0.4-2.0) mmol/L Calcium 10.0 (8.6-10.3) mg/dl Magnesium 1.5 L (1.7-2.4) mg/dl Total Bilirubin 0.7 (0.2-1.0) mg/dl Direct Bilirubin (0-0.2) mg/dl AST 34 (13-39) U/L ALT 29 (7-52) U/L Alkaline Phosphatase 89 (34-104) U/L Total Protein 7.1 (6.0-8.3) gm/dl Albumin 4.2 (3.4-5.0) gm/dl Globulin 2.9 (2.5-4.0) gm/dl Albumin/Globulin Ratio 1.4 (0.9-2) Procalcitonin 8.42 H (0-0.5) ng/ml TSH 2.507 (0.300-4.500) uIu/ml Urine Color Dark Yellow Urine Appearance Clear (Clear) Urine pH 5.0 (4.5-7.5) Ur Specific [place] 1.013 (1.000-1.030) Urine Protein Trace H (Negative) Urine Glucose (UA) Negative (Negative) Urine Ketones Negative (Negative) Urine Blood Negative (Negative) Urine Nitrite Negative (Negative) Urine Bilirubin Negative (Negative) Urine Urobilinogen Negative (Negative) Ur Leukocyte Esterase Trace H (Negative) Urine WBC (Auto) 1-5 (0-5) /hpf Urine RBC (Auto) 0-4 (0-4) /hpf U Hyaline Cast (Auto) 1-5 (0-5) /lpf U Epithel Cells (Auto) >30 H (0-5) /lpf Urine Bacteria (Auto) Negative (Negative) Adenovirus (PCR) Not Detected (NotDetected) B. pertussis DNA (PCR) Not Detected (NotDetected) B.parapertussis DNA PCR Not Detected (NotDetected) C. pneumoniae DNA (PCR) Not Detected (NotDetected) Coronavirus OC43 (PCR) Not Detected (NotDetected) Coronavirus HKU1 (PCR) Not Detected (NotDetected) Coronavirus 229E (PCR) Not Detected (NotDetected) SARS-CoV-2 (PCR) Not Detected (NotDetected) Coronavirus NL63 (PCR) Not Detected (NotDetected) Human Metapneumovir PCR Not Detected (NotDetected) Influenza Type A (PCR) Not Detected (NotDetected) Influenza Type B (PCR) Not Detected (NotDetected) M. pneumoniae (PCR) Not Detected (NotDetected) Parainfluenza 1 (PCR) Not Detected (NotDetected) Parainfluenza 2 (PCR) Not Detected (NotDetected) Parainfluenza 3 (PCR) Not Detected (NotDetected) Parainfluenza 4 (PCR) Not Detected (NotDetected) RSV (PCR) Not Detected (NotDetected) Entero/Rhino (PCR) Not Detected (NotDetected) Medications Administered Current Inpatient Medications Acetaminophen (Acetaminophen 325 Mg Tab) 650 mg PO Q4H PRN PRN Reason: Pain or Fever Stop: 08/31/23 00:29 Artificial Tears (Artificial Tears) 1 drops OP QID PRN PRN Reason: .DRY EYES Stop: 08/31/23 00:29 Aspirin (Aspirin 81 Mg Ectab) 81 mg PO DAILY KORIN Stop: 08/31/23 08:59 Last Admin: 08/01/23 08:59 Dose: 81 mg Atropine Sulfate (Atropine Sulfate 0.1 Mg/Ml 10ml Syr) 0.5 mg IV Q1M PRN PRN Reason: PACU Use-HR<40 &/or Bradycardi Stop: 08/01/23 18:43 Clopidogrel Bisulfate (Clopidogrel Bisulfate 75 Mg Tab) 75 mg PO DAILY KORIN Stop: 08/31/23 08:59 Last Admin: 08/01/23 08:59 Dose: 75 mg Cyanocobalamin (Cyanocobalamin (B-12) 500 Mcg Tablet) 1,000 mcg PO DAILY KORIN Stop: 08/31/23 08:59 Last Admin: 08/01/23 09:00 Dose: 1,000 mcg Dextrose (Dextrose 50% 50 Ml Syringe) 25 - 50 ml IV UD PRN; Protocol PRN Reason: Hypoglycemia Protocol Stop: 08/31/23 00:29 Enoxaparin Sodium (Enoxaparin Inj 40 Mg/0.4 Ml Syr) 40 mg SQ Q24H KORIN Stop: 08/31/23 08:59 Last Admin: 08/01/23 09:02 Dose: 40 mg Ephedrine Sulfate (Ephedrine Sulfate 50 Mg/Ml Amp) 5 mg IV Q5M PRN PRN Reason: PACU Use Only-SBP<90 mmHg Stop: 08/01/23 18:43 Fentanyl Citrate (Fentanyl Citrate Pf 100 Mcg/2 Ml Vial) 25 mcg IV Q5M PRN PRN Reason: PACU Use Only-Pain Stop: 08/01/23 18:43 Fluticasone Propionate (Fluticasone Propionate Na Spr 16 Gm Btl) 2 sprays NA DAILY PRN PRN Reason: Nasal Congestion Stop: 08/31/23 00:29 Glucagon (Glucagon For Inj 1 Mg Vial) 1 mg SQ UD PRN; Protocol PRN Reason: Hypoglycemia Protocol Stop: 08/31/23 00:29 Glucose (Glucose 10 Tab/Tube) 4 - 8 tab PO UD PRN; Protocol PRN Reason: Hypoglycemia Treatment Stop: 08/31/23 00:29 Glucose (Glucose 40% Gel 15 Gm Tube) 15 - 30 gm PO UD PRN; Protocol PRN Reason: Hypoglycemia Protocol Stop: 08/31/23 00:29 Hydromorphone HCl (Hydromorphone Inj 0.5 Mg/0.5 Ml Syr) 0.5 mg IV Q3H PRN PRN Reason: Pain Stop: 08/15/23 00:29 Last Admin: 08/01/23 07:17 Dose: 0.5 mg Piperacillin Sod/Tazobactam (Sod 4.5 gm/ Dextrose) 100 mls @ 25 mls/hr IV Q8H [facility]; Protocol Stop: 08/11/23 05:59 Last Admin: 08/01/23 07:19 Dose: 25 mls/hr Sodium Chloride (Nss) 1,000 mls @ 125 mls/hr IV .Q8H [facility] Stop: 08/31/23 00:29 Last Admin: 08/01/23 09:05 Dose: 125 mls/hr Insulin Aspart (Insulin Aspart Per Unit Charge) 0 units SC Q6 KORIN Stop: 08/31/23 00:29 Last Admin: 08/01/23 06:31 Dose: 1 units Levothyroxine Sodium (Levothyroxine Sodium 100 Mcg Tablet) 100 mcg PO DAILYBB KORIN Stop: 08/31/23 06:29 Last Admin: 08/01/23 06:32 Dose: 100 mcg Metoprolol Tartrate (Metoprolol Tartrate 25 Mg Tab) 25 mg PO BID [facility] Stop: 08/31/23 08:59 Last Admin: 08/01/23 09:02 Dose: Not Given Miscellaneous (Carbohydrates For Hypoglycemia ) 15 - 30 gm PO UD PRN PRN Reason: Hypoglycemia Protocol Stop: 08/31/23 00:29 Multivitamins (Multivitamin Tab) 1 tab PO DAILY [facility] Stop: 08/31/23 08:59 Last Admin: 08/01/23 09:01 Dose: 1 tab Nitroglycerin (Nitroglycerin Sl 0.4 Mg/Tab Tab) 0.4 mg SL Q5M PRN PRN Reason: Chest Pain Stop: 08/31/23 00:29 Ondansetron HCl (Ondansetron Inj 2 Mg/Ml 2 Ml Vial) 4 mg IV Q6H PRN PRN Reason: Nausea Stop: 08/31/23 00:29 Ondansetron HCl (Ondansetron Inj 2 Mg/Ml 2 Ml Vial) 4 mg IV ONCE PRN PRN Reason: PACU Use Only-Nausea/Vomiting Stop: 08/01/23 18:43 Potassium Chloride (Potassium Chloride 10 Meq Tabcr) 10 meq PO DAILY KORIN Stop: 08/31/23 08:59 Last Admin: 08/01/23 09:01 Dose: 10 meq Rosuvastatin Calcium (Rosuvastatin Calcium 20 Mg Tab) 20 mg PO DAILY KORIN Stop: 08/31/23 08:59 Last Admin: 08/01/23 09:01 Dose: 20 mg
[2023-08-01] MEDS ORDERED: ATROPINE SULFATE 0.1 MG/ML 10ML SYR IV PRN (10:43)
[2023-08-01] MEDS ORDERED: ePHEDrine sulfate 50 MG/ML AMP IV PRN (10:43)
[2023-08-01] MEDS ORDERED: fentaNYL citrate PF 100 MCG/2 ML VIAL IV PRN (10:43)
[2023-08-01] MEDS ORDERED: PROPOFOL IV EMULSION 10 MG/ML 20 ML VIAL IV ONE (11:02)
[2023-08-01] MEDS ORDERED: LIDOCAINE 2% 2 ML VIAL/AMP(20MG/ML) INFIL ONE (11:02)
[2023-08-01] MEDS ORDERED: ONDANSETRON INJ 2 MG/ML 2 ML VIAL ONE (11:02)
[2023-08-01] MEDS ORDERED: PHENYLEPHRINE 100MCG/ML 10ML SYR IV ONE (11:03)
--- NOTE | 2023-08-01 11:15 | Post Operative Brief Note ---
Immediate Post Op Note v1 Date of Surgery August 01, 2023 Pre & Post Diagnosis Operation Date: 08/01/23 09:55 Pre-Op Diagnosis: Abd pain, cholelithiasis Post-Op Diagnosis: Esophageal Ulcer, Gastritis, gastric polyp, gallstones I identified the patient and participated in the time-out.: Yes Procedure Operation Date: 08/01/23 09:55 Actual Procedures p EGD, upper EUS - Hernan Ross DO Surgeon Hernan Ross, Field Rep None Estimated Blood Loss 0 Findings Consistent with Post-Op Diagnosis
--- NOTE | 2023-08-01 11:17 | Communication Note ---
Date of Service: August 01, 2023 The patient underwent upper endoscopy and endoscopic ultrasound today. She was found to have evidence of esophagitis, gastritis in addition to numerous gastric polyps. The endoscopic ultrasound was notable for numerous stones within the gallbladder. Recommendations Protonix or omeprazole 40 mg daily Carafate 1 g 4 times daily for 2 weeks Repeat upper endoscopy to assess healing in 3 months Consider general surgery evaluation to determine if patient would benefit from cholecystectomy Please call with any additional questions or concerns GI to sign off
--- NOTE | 2023-08-01 11:18 | GI REPORT ---
Patient Name: Madeleine Crook Procedure Date: 08/01/2023 10:50 AM Date of : 1945 Admit Type: Inpatient Age: 78 Gender: Female Attending MD: Hernan Ross DO, Procedure: Upper GI endoscopy Providers: Hernan Ross DO Referring MD: Referred Self Indications: Epigastric abdominal pain Medicines: Monitored Anesthesia Care Complications: No immediate complications. Estimated blood loss: Minimal. Estimated Blood Loss: Estimated blood loss was minimal. Procedure: Pre-Anesthesia Assessment: - Prior to the procedure, a History and Physical was performed, and patient medications, allergies and sensitivities were reviewed. The patient's tolerance of previous anesthesia was reviewed. - The risks and benefits of the procedure and the sedation options and risks were discussed with the patient. All questions were answered and informed consent was obtained. - Patient identification and proposed procedure were verified prior to the procedure by the physician, the nurse and the sales person. The procedure was verified in the procedure room. - Pre-procedure physical examination revealed no contraindications to sedation. - ASA Grade Assessment: III - A patient with severe systemic disease. - After reviewing the risks and benefits, the patient was deemed in satisfactory condition to undergo the procedure. - The anesthesia plan was to use monitored anesthesia care (MAC). - Immediately prior to administration of medications, the patient was re-assessed for adequacy to receive sedatives. - The heart rate, respiratory rate, oxygen saturations, blood pressure, adequacy of pulmonary ventilation, and response to care were monitored throughout the procedure. - The heart rate, respiratory rate, oxygen saturations, blood pressure, adequacy of pulmonary ventilation, and response to care were monitored throughout the procedure. - The physical status of the patient was re-assessed after the procedure. After obtaining informed consent, the endoscope was passed under direct vision. Throughout the procedure, the patient's blood pressure, pulse, and oxygen saturations were monitored continuously. The Endoscope was introduced through the mouth, and advanced to the third part of duodenum. The upper GI endoscopy was accomplished without difficulty. The patient tolerated the procedure well. Findings: The upper third of the esophagus and middle third of the esophagus were normal. LA Grade A (one or more mucosal breaks less than 5 mm, not extending between tops of 2 mucosal folds) esophagitis with no bleeding was found in the lower third of the esophagus. Biopsies were taken with a cold forceps for histology. The pathology specimen was placed into Bottle D. Estimated blood loss was minimal. Diffuse atrophic mucosa was found in the entire examined stomach. Biopsies were taken with a cold forceps for histology. The pathology specimen was placed into Bottle B. Estimated blood loss was minimal. Multiple 4 to 5 mm semi-sessile polyps with no bleeding and no stigmata of recent bleeding were found in the entire examined stomach. Biopsies were taken with a cold forceps for histology. The pathology specimen was placed into Bottle C. Estimated blood loss was minimal. The examined duodenum was normal. Biopsies were taken with a cold forceps for histology. The pathology specimen was placed into Bottle A. Estimated blood loss was minimal. Impression: - Normal upper third of esophagus and middle third of esophagus. - LA Grade A esophagitis with no bleeding. Biopsied. - Gastric mucosal atrophy. Biopsied. - Multiple gastric polyps. Biopsied. - Normal examined duodenum. Biopsied. Recommendation: - Perform an upper endoscopic ultrasound (UEUS) today. - Await pathology results. - Protonix 40 mg per day for 3 months - Carafate 1 gm qid for 2 weeks - Repeat EGD in 3 months Hernan Ross D.O. Hernan Ross DO 08/01/2023 11:18:14 AM This report has been signed electronically. Note Initiated On: 08/01/2023 10:50 AM Number of Addenda: 0 I attest to the content of the Intraoperative Record and orders documented therein, exceptions below {[id number]}
--- NOTE | 2023-08-01 11:23 | GI REPORT ---
Patient Name: Madeleine Crook Procedure Date: 08/01/2023 10:49 AM Date of : 1945 Admit Type: Inpatient Age: 78 Gender: Female Attending MD: Hernan Ross DO, Procedure: Upper EUS Providers: Hernan Ross DO Referring MD: Kuldeep Lopez Md Indications: Elevated liver enzymes, Suspected choledocholithiasis, Epigastric abdominal pain, Abdominal pain in the right upper quadrant Medicines: Monitored Anesthesia Care Complications: No immediate complications. Estimated blood loss: Minimal. Estimated Blood Loss: Estimated blood loss was minimal. Procedure: Pre-Anesthesia Assessment: - Prior to the procedure, a History and Physical was performed, and patient medications, allergies and sensitivities were reviewed. The patient's tolerance of previous anesthesia was reviewed. - The risks and benefits of the procedure and the sedation options and risks were discussed with the patient. All questions were answered and informed consent was obtained. - Patient identification and proposed procedure were verified prior to the procedure by the physician, the nurse and the senior product designer. The procedure was verified in the procedure room. - Pre-procedure physical examination revealed no contraindications to sedation. - ASA Grade Assessment: III - A patient with severe systemic disease. - After reviewing the risks and benefits, the patient was deemed in satisfactory condition to undergo the procedure. - The anesthesia plan was to use general anesthesia. - Immediately prior to administration of medications, the patient was re-assessed for adequacy to receive sedatives. - The heart rate, respiratory rate, oxygen saturations, blood pressure, adequacy of pulmonary ventilation, and response to care were monitored throughout the procedure. - The physical status of the patient was re-assessed after the procedure. After obtaining informed consent, the endoscope was passed under direct vision. Throughout the procedure, the patient's blood pressure, pulse, and oxygen saturations were monitored continuously. The Endosonoscope was introduced through the mouth, and advanced to the third part of duodenum. The upper EUS was accomplished without difficulty. The patient tolerated the procedure well. Findings: ENDOSONOGRAPHIC FINDING: : There was no sign of significant endosonographic abnormality in the ampulla. No pathologic lymphadenopathy and no masses were identified. There was abnormal echogenicity in the visualized portion of the liver. This area was hyperechoic. There was no sign of significant endosonographic abnormality in the entire pancreas. The pancreatic duct measured up to 1 mm in diameter. No pathologic lymphadenopathy, no masses, no cysts, no calcifications. No lymphadenopathy seen. There was no sign of significant endosonographic abnormality in the left adrenal gland. No adrenal gland enlargement was identified. There was no sign of significant endosonographic abnormality in the common bile duct. The maximum diameter of the duct was 6 mm. No stones, no biliary sludge and ducts of normal caliber were identified. Multiple stones were visualized endosonographically in the gallbladder. They were hyperechoic and characterized by shadowing. Impression: - There was no sign of significant pathology in the ampulla. - There was abnormal echogenicity in the visualized portion of the liver. This was hyperechoic. Tissue has not been obtained. However, the endosonographic appearance is suggestive of fatty infiltration. - There was no sign of significant pathology in the entire pancreas. - Endosonographic images of the left adrenal gland were unremarkable. - There was no sign of significant pathology in the common bile duct. - Multiple stones were visualized endosonographically in the gallbladder. - No specimens collected. Recommendation: - [facility] care. - Advance diet as tolerated today. - Refer to a surgeon to determine if patient would benefit from a cholecystectomy. Hernan Ross D.O. Hernan Ross, DO 08/01/2023 11:23:04 AM This report has been signed electronically. Note Initiated On: 08/01/2023 10:49 AM Number of Addenda: 0 I attest to the content of the Intraoperative Record and orders documented therein, exceptions below {[id number]}
--- NOTE | 2023-08-01 11:50 | Anesthesiology Progress Note ---
Date of Service August 01, 2023 Anesthesia Post Procedure Vital Signs Vital Signs: Temp Pulse Pulse Pulse Resp BP BP 08/01/23 11:35 97.9 F 94 H 18 104/52 L 08/01/23 11:25 93 H 19 97/54 L 08/01/23 11:17 98.1 F 96 H 17 94/51 L 08/01/23 10:23 98.4 F 98 H 18 148/70 H 08/01/23 09:56 113/54 L 08/01/23 09:56 90 15 08/01/23 09:30 08/01/23 09:00 95 H 18 08/01/23 09:00 109/57 L 08/01/23 08:32 107/63 08/01/23 08:32 101 H 24 08/01/23 08:30 94 H 21 08/01/23 08:00 109/60 08/01/23 08:00 91 H 17 08/01/23 07:30 95 H 18 08/01/23 07:30 94/54 L 08/01/23 07:00 91 H 08/01/23 07:00 108/63 08/01/23 06:55 92 H 08/01/23 06:40 91 H 26 H 08/01/23 06:35 99/56 L 08/01/23 06:35 95 H 21 08/01/23 06:30 90 18 08/01/23 06:30 88/58 L 08/01/23 06:20 97 H 23 08/01/23 06:10 98 H 20 08/01/23 06:00 96 H 08/01/23 06:00 88/45 L 08/01/23 05:50 95 H 08/01/23 05:40 99 H 23 08/01/23 05:30 93/50 L 08/01/23 05:30 98 H 08/01/23 05:20 98 H 19 08/01/23 05:10 97 H 08/01/23 05:00 96 H 08/01/23 05:00 91/45 L 08/01/23 04:50 96 H 08/01/23 04:40 95 H 08/01/23 04:30 92 H 08/01/23 04:30 98/53 L 08/01/23 04:20 91 H 20 08/01/23 04:11 08/01/23 04:10 92 H 19 08/01/23 04:00 95/58 L 08/01/23 04:00 93 H 08/01/23 03:50 08/01/23 03:40 91 H 08/01/23 03:30 94 H 08/01/23 03:30 98/59 L 08/01/23 03:20 91 H 20 08/01/23 03:10 93 H 23 08/01/23 03:00 93 H 08/01/23 03:00 99/59 L 08/01/23 02:50 92 H 08/01/23 02:40 94 H 19 08/01/23 02:30 105/58 L 08/01/23 02:30 87 23 08/01/23 02:20 94 H 24 08/01/23 02:10 94 H 08/01/23 02:00 94 H 08/01/23 02:00 105/73 08/01/23 01:50 93 H 23 08/01/23 01:40 92 H 08/01/23 01:33 91 H 18 08/01/23 01:30 90 18 08/01/23 01:30 98/54 L 08/01/23 01:26 106/56 L 08/01/23 01:26 90 12 08/01/23 01:10 93 H 08/01/23 01:06 08/01/23 01:06 97.7 F 69 12 08/01/23 01:00 94 H 08/01/23 01:00 86/53 L 08/01/23 00:53 97 H 24 08/01/23 00:53 99/50 L 08/01/23 00:51 104 H 08/01/23 00:30 102 H 18 08/01/23 00:30 92/76 L 08/01/23 00:20 103 H 08/01/23 00:16 105 H 08/01/23 00:10 101 H 08/01/23 00:00 100/57 L 08/01/23 00:00 104 H 16 07/31/23 23:50 104 H 20 07/31/23 23:40 101 H 07/31/23 23:30 98 H 07/31/23 23:30 101/62 07/31/23 23:20 101 H 25 H 07/31/23 23:10 104 H 20 07/31/23 23:00 96/53 L 07/31/23 23:00 103 H 22 07/31/23 22:50 102 H 29 H 07/31/23 22:40 106 H 23 07/31/23 22:36 107 H 12 07/31/23 22:30 97/58 L 07/31/23 22:30 105 H 21 07/31/23 22:20 105 H 23 07/31/23 22:10 106 H 24 07/31/23 21:54 104 H 07/31/23 20:46 111 H 12 07/31/23 18:35 07/31/23 18:33 89 25 H 07/31/23 18:33 96/56 L 07/31/23 18:30 96 H 24 07/31/23 18:20 92 H 26 H 07/31/23 18:14 89 07/31/23 18:12 98.3 F 93 H 21 114/89 07/31/23 18:10 87 21 07/31/23 18:09 99 H 29 H BP Pulse Ox Pulse Ox O2 Del Method O2 Del Method O2 Flow Rate 08/01/23 11:35 96 Room Air 08/01/23 11:25 100 Oxymask 5 08/01/23 11:17 100 Oxymask 5 08/01/23 10:23 95 Room Air 08/01/23 09:56 08/01/23 09:56 95 Room Air 08/01/23 09:30 94 08/01/23 09:00 95 08/01/23 09:00 08/01/23 08:32 08/01/23 08:32 98 08/01/23 08:30 96 08/01/23 08:00 08/01/23 08:00 94 08/01/23 07:30 93 08/01/23 07:30 08/01/23 07:00 93 08/01/23 07:00 08/01/23 06:55 08/01/23 06:40 95 08/01/23 06:35 08/01/23 06:35 95 08/01/23 06:30 95 08/01/23 06:30 08/01/23 06:20 93 08/01/23 06:10 90 08/01/23 06:00 90 08/01/23 06:00 08/01/23 05:50 91 08/01/23 05:40 92 08/01/23 05:30 08/01/23 05:30 92 08/01/23 05:20 94 08/01/23 05:10 90 08/01/23 05:00 91 08/01/23 05:00 08/01/23 04:50 91 08/01/23 04:40 91 08/01/23 04:30 92 08/01/23 04:30 08/01/23 04:20 91 08/01/23 04:11 Room Air 08/01/23 04:10 95 08/01/23 04:00 08/01/23 04:00 91 08/01/23 03:50 97 08/01/23 03:40 96 08/01/23 03:30 94 08/01/23 03:30 08/01/23 03:20 95 08/01/23 03:10 94 08/01/23 03:00 94 08/01/23 03:00 08/01/23 02:50 95 08/01/23 02:40 94 08/01/23 02:30 08/01/23 02:30 95 08/01/23 02:20 93 08/01/23 02:10 95 08/01/23 02:00 93 08/01/23 02:00 08/01/23 01:50 95 08/01/23 01:40 96 08/01/23 01:33 98/54 L 95 Room Air 08/01/23 01:30 94 08/01/23 01:30 08/01/23 01:26 08/01/23 01:26 96 08/01/23 01:10 93 08/01/23 01:06 98 Room Air 08/01/23 01:06 86/53 L 98 Room Air 08/01/23 01:00 95 08/01/23 01:00 08/01/23 00:53 95 08/01/23 00:53 08/01/23 00:51 08/01/23 00:30 94 08/01/23 00:30 08/01/23 00:20 92 08/01/23 00:16 100/57 L 98 Room Air 08/01/23 00:10 93 08/01/23 00:00 08/01/23 00:00 94 07/31/23 23:50 94 07/31/23 23:40 90 07/31/23 23:30 94 07/31/23 23:30 07/31/23 23:20 94 07/31/23 23:10 95 07/31/23 23:00 07/31/23 23:00 93 07/31/23 22:50 93 07/31/23 22:40 94 07/31/23 22:36 97/58 L 98 Room Air 07/31/23 22:30 07/31/23 22:30 93 07/31/23 22:20 94 07/31/23 22:10 93 07/31/23 21:54 07/31/23 20:46 99/50 L 98 Room Air 07/31/23 18:35 97 Room Air 07/31/23 18:33 94 07/31/23 18:33 07/31/23 18:30 94 07/31/23 18:20 96 07/31/23 18:14 07/31/23 18:12 97 07/31/23 18:10 93 07/31/23 18:09 94 Pain Intensity Neck: Pain Intensity: 7 Left Abdomen: Pain Intensity: 6 Transfer of Care Handoff Completed per policy Notes Mental Status: alert / awake / arousable and participated in evaluation Patient Amnestic to Procedure: Yes Nausea / Vomiting: adequately controlled Pain: adequately controlled Airway Patency, RR, SpO2: stable & adequate BP & HR: stable & adequate Hydration State: stable & adequate Anesthetic Complications: no major complications apparent and Pt Satisfied with anesthetic care
--- NOTE | 2023-08-01 12:29 | Surgery Consultation ---
Date of Consultation August 01, 2023 Assessment & Plan (1) Cholelithiasis: This is a 78yF with a PMH of CAD s/p stents ?feb on aspirin and plavix, hypothyroid, who presents to the [facility] ED on 07/31/23 with complaints of abdominal pain, n/v, diarrhea, and chills. Patient states these symptoms arose yesterday, but has been dealing with intermittent pain to her L shoulder blade, upper abdominal pain, associated with nausea/vomiting for quite some time. Recently these symptoms became more severe around s[place] time. She has been seen at [place] a couple of times and was recently treated for presumed pneumonia with a course of antibiotics. Due to worsening symptoms yesterday she came into the hospital and she states she wanted to go to a new ER this time for another opinion. A CT a/p performed on 07/31 showed no acute findings. Patient points to her epigastric region when asked where her pain is. Says she last vomited yesterday. GI was consutled given her symptoms and performed an EUS with the possibility of an ERCP today given + cholelithiasis seen on CT scan. EUS ultimately showed + esophagitis, gastritis, + cholelithiasis without choledocholithiasis. We have been consulted to evaluate pt for the risk/benefit of performing a cholecystectomy. Labs today show WBC 12, Hbg 11, Tb 0.8, Db 0.3, AST 33, ALT 23, Alkp 49, lactate 2.8. On exam abdomen is soft with discomfort elicited in the epigastric and RUQ regions. We will obtain a RUQ US to further evaluate gallbladder. There will need to be discussions had with cardiology to see if she is able to come off of her plavix given recent stents. We will f/u on US results, but no procedures will be performed today or likely this wk, given b eibk on plavix. Pending ongoing workup and patient's symptoms there is a possibility she could be sent home when medically stable and f/u with us as an outpatient to consider cholecystectomy. We will follow. (2) Abdominal pain: Supervising Physician Co-Signing Physician Notes pnt S&E, labs and imaging reviewed, agree with above. admitted with epigastric pain, c/o burning, no association with meals. workup revealed gallstones and dilated cbd, lft's up. egd today with gastritis and ulceration, eus with gallstones but no choledocholithiasis. RUQUS with cholelithiasis and possible cholecystitis. went into afib with rvr after scope today, on tele. on exam ttp in epigastrium, no ruq ttp. would recommend HIDA to r/o cholecystitis, though her symptoms sound more like gastritis. given heart history and afib/rvr, needs cards clearance and optimization, as well as to stop plavix for several days prior to any surgical intervention if necessary. History of Present Illness Attending Physician: Kuldeep Lopez MD History of Present Illness This is a 78yF with a PMH of CAD s/p stents ?feb on aspirin and plavix, hypothyroid, who presents to the [facility] ED on 07/31/23 with complaints of abdominal pain, n/v, diarrhea, and chills. Patient states these symptoms arose yesterday, but has been dealing with intermittent pain to her L shoulder blade, upper abdominal pain, associated with nausea/vomiting for quite some time. Recently these symptoms became more severe around [place] time. She was seen in [facility] a couple times without an abdominal diagnosis per patient. Supp osedly she was treated for presumed pneumonia with a course of antibiotics. Due to worsening symptoms yesterday she came into the hospital and she states she wanted to go to a new ER this time for another opinion. A CT a/p performed on 07/31 showed no acute findings. Patient points to her epigastric region when asked where her pain is. Says she last vomited yesterday. Denies any issues or worsening pain with eating. Past abdominal surgical history includes an appendectomy, tubal ligation, and per patient a bowel resection for which she cannot remember why. Allergies Allergy/AdvReac Type Severity Reaction Status Date / Time gabapentin AdvReac EYES BLEED Verified 07/31/23 19:43 Home Medications Medication Instructions Recorded Confirmed Type aspirin 81 mg tablet,delayed 81 mg PO DAILY 07/31/23 07/31/23 History release clobetasol 0.05 % topical cream 1 applic topical DIRECTED PRN 07/31/23 07/31/23 History .FLARE UPS clopidogrel 75 mg tablet 75 mg PO DAILY 07/31/23 07/31/23 History cyanocobalamin (vitamin B-12) 1,000 mcg PO DAILY 07/31/23 07/31/23 History 1,000 mcg tablet (Vitamin B-12) cyclosporine 0.05 % eye drops in a 1 drp ophthalmic (eye) Q12H 07/31/23 07/31/23 History dropperette (Restasis) fluticasone propionate 50 2 spray intranasal DAILY PRN Nasal 07/31/23 07/31/23 History mcg/actuation nasal Congestion spray,suspension (Flonase Allergy Relief) lactobacillus combination no.4 3 0 mmu cells PO DAILY 07/31/23 07/31/23 History billion cell capsule (Probiotic) levothyroxine 100 mcg tablet 100 mcg PO QAM 07/31/23 07/31/23 History metoprolol tartrate 25 mg tablet 25 mg PO BID 07/31/23 08/01/23 History multivitamin 1 tab PO DAILY 07/31/23 07/31/23 History nitroglycerin 0.4 mg sublingual 0.4 mg sublingual DIRECTED PRN 07/31/23 07/31/23 History tablet .CHEST PAIN omeprazole 20 mg capsule,delayed 20 mg PO DAILY 07/31/23 07/31/23 History release polyvinyl alcohol 1.4 % eye drops 1 drp ophthalmic (eye) QID PRN 07/31/23 07/31/23 History .DRY EYES potassium chloride 10 mEq 10 meq PO DAILY 07/31/23 07/31/23 History capsule,extended release rosuvastatin 20 mg tablet 20 mg PO DAILY 07/31/23 07/31/23 History Patient History Medical History (Updated 08/01/23 @ 17:52 by Mamadou Laws MD) HLD (hyperlipidemia) H/O: HTN (hypertension) CAD (coronary artery disease) Atrial fibrillation with rapid ventricular response Hypokalemia Surgical History No pertinent past surgical history Social History Smoking Status: Never smoker Hx Alcohol Use: No Hx Substance Use: No Preferred Language: Cypriot Communication Ability: Effective 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 Beliefs That Will Affect Care: None Current Living Situation: Alone Current Living Situation Comment: Home Other Information That Helps Us Care for You: Yes (room cool at night, no socks in bed please) Feels Safe at Home: Yes Safety Concerns: Feels Safe At This Time Assistive Devices: Other Assistive Devices Comment: Reading glasses, partial dentures Review of Systems Constitutional: + fever and + chills Respiratory: no dyspnea Gastrointestinal: + abdominal pain, + nausea, + vomiting a nd + diarrhea/loose stools Physical Exam Physical Exam: awake and communicative Respiratory: normal respiratory effort Gastrointestinal (Abdomen): Inspection/Auscultation: + abdominal surgical scar (multiple surgical scars noted) Percussion/Palpation: + abdomen tender (discomfort to palpation in the epigastric and RUQ regions noted) and abdomen soft Results & Data Vital Signs (Past 12 Hours) Vital Signs Temp Pulse Pulse Pulse Resp BP BP 08/01/23 12:20 89 15 100/51 L 08/01/23 12:05 91 H 16 104/52 L 08/01/23 11:50 90 16 106/54 L 08/01/23 11:35 36.6 C 94 H 18 104/52 L 08/01/23 11:25 93 H 19 97/54 L 08/01/23 11:17 36.7 C 96 H 17 94/51 L 08/01/23 10:23 36.9 C 98 H 18 148/70 H 08/01/23 09:56 113/54 L 08/01/23 09:56 90 15 08/01/23 09:30 08/01/23 09:00 95 H 18 08/01/23 09:00 109/57 L 08/01/23 08:32 107/63 08/01/23 08:32 101 H 24 08/01/23 08:30 94 H 21 08/01/23 08:00 109/60 08/01/23 08:00 91 H 17 08/01/23 07:30 95 H 18 08/01/23 07:30 94/54 L 08/01/23 07:00 91 H 21 08/01/23 07:00 108/63 08/01/23 06:55 92 H 08/01/23 06:40 91 H 26 H 08/01/23 06:35 99/56 L 08/01/23 06:35 95 H 21 08/01/23 06:30 90 18 08/01/23 06:30 88/58 L 08/01/23 06:20 97 H 23 08/01/23 06:10 98 H 20 08/01/23 06:00 96 H 08/01/23 06:00 88/45 L 08/01/23 05:50 95 H 08/01/23 05:40 99 H 08/01/23 05:30 93/50 L 08/01/23 05:30 98 H 08/01/23 05:20 98 H 08/01/23 05:10 97 H 08/01/23 05:00 96 H 08/01/23 05:00 91/45 L 08/01/23 04:50 96 H 08/01/23 04:40 95 H 20 08/01/23 04:30 92 H 08/01/23 04:30 98/53 L 08/01/23 04:20 91 H 08/01/23 04:11 08/01/23 04:10 92 H 08/01/23 04:00 95/58 L 08/01/23 04:00 93 H 08/01/23 03:50 08/01/23 03:40 91 H 08/01/23 03:30 94 H 08/01/23 03:30 98/59 L 08/01/23 03:20 91 H 08/01/23 03:10 93 H 08/01/23 03:00 93 H 08/01/23 03:00 99/59 L 08/01/23 02:50 92 H 08/01/23 02:40 94 H 08/01/23 02:30 105/58 L 08/01/23 02:30 87 23 08/01/23 02:20 94 H 24 08/01/23 02:10 94 H 08/01/23 02:00 94 H 08/01/23 02:00 105/73 08/01/23 01:50 93 H 08/01/23 01:40 92 H 08/01/23 01:33 91 H 18 08/01/23 01:30 90 18 08/01/23 01:30 98/54 L 08/01/23 01:26 106/56 L 08/01/23 01:26 90 12 08/01/23 01:10 93 H 08/01/23 01:06 08/01/23 01:06 36.5 C 69 12 08/01/23 01:00 94 H 23 08/01/23 01:00 86/53 L 08/01/23 00:53 97 H 24 08/01/23 00:53 99/50 L 08/01/23 00:51 104 H 15 08/01/23 00:30 102 H 18 08/01/23 00:30 92/76 L BP Pulse Ox Pulse Ox O2 Del Method O2 Del Method O2 Flow Rate 08/01/23 12:20 94 Room Air 08/01/23 12:05 94 Room Air 08/01/23 11:50 96 Room Air 08/01/23 11:35 96 Room Air 08/01/23 11:25 100 Oxymask 5 08/01/23 11:17 100 Oxymask 5 08/01/23 10:23 95 Room Air 08/01/23 09:56 08/01/23 09:56 95 Room Air 08/01/23 09:30 94 08/01/23 09:00 95 08/01/23 09:00 08/01/23 08:32 08/01/23 08:32 98 08/01/23 08:30 96 08/01/23 08:00 08/01/23 08:00 94 08/01/23 07:30 93 08/01/23 07:30 08/01/23 07:00 93 08/01/23 07:00 08/01/23 06:55 08/01/23 06:40 95 08/01/23 06:35 08/01/23 06:35 95 08/01/23 06:30 95 08/01/23 06:30 08/01/23 06:20 93 08/01/23 06:10 90 08/01/23 06:00 90 08/01/23 06:00 08/01/23 05:50 91 08/01/23 05:40 92 08/01/23 05:30 08/01/23 05:30 92 08/01/23 05:20 94 08/01/23 05:10 90 08/01/23 05:00 91 08/01/23 05:00 08/01/23 04:50 91 08/01/23 04:40 91 08/01/23 04:30 92 08/01/23 04:30 08/01/23 04:20 91 08/01/23 04:11 Room Air 08/01/23 04:10 95 08/01/23 04:00 08/01/23 04:00 91 08/01/23 03:50 97 08/01/23 03:40 96 08/01/23 03:30 94 08/01/23 03:30 08/01/23 03:20 95 08/01/23 03:10 94 08/01/23 03:00 94 08/01/23 03:00 08/01/23 02:50 95 08/01/23 02:40 94 08/01/23 02:30 08/01/23 02:30 95 08/01/23 02:20 93 08/01/23 02:10 95 08/01/23 02:00 93 08/01/23 02:00 08/01/23 01:50 95 08/01/23 01:40 96 08/01/23 01:33 98/54 L 95 Room Air 08/01/23 01:30 94 08/01/23 01:30 08/01/23 01:26 08/01/23 01:26 96 08/01/23 01:10 93 08/01/23 01:06 98 Room Air 08/01/23 01:06 86/53 L 98 Room Air 08/01/23 01:00 95 08/01/23 01:00 08/01/23 00:53 95 08/01/23 00:53 08/01/23 00:51 08/01/23 00:30 94 08/01/23 00:30 Diagnostic Findings Exam(s): CT ABDOMEN + PELVIS With Contrast IV Amt: 84 ml optiray 320 EXAM: CT Abdomen and Pelvis With Intravenous Contrast CLINICAL HISTORY: Reason for exam: L flank pain. TECHNIQUE: Axial computed tomography images of the abdomen and pelvis with intravenous contrast. Automated exposure control was utilized for the study. A dose lowering technique was utilized adhering to the principles of ALARA. CONTRAST: Patient received 84 ml optiray 320 of IV contrast COMPARISON: No relevant prior studies available. FINDINGS: Lung bases: Unremarkable. No mass. No consolidation. ABDOMEN: Liver: Unremarkable. No mass. Gallbladder and bile ducts: Cholelithiasis. No ductal dilation. Pancreas: Unremarkable. No mass. No ductal dilation. Spleen: Calcified splenic granulomas. Adrenals: Unremarkable. No mass. Kidneys and ureters: Unremarkable. No hydronephrosis or delayed nephrogram. Stomach and bowel: Diverticulosis, without acute diverticulitis. No bowel obstruction. No free air. PELVIS: Appendix: Appendectomy. Bladder: Unremarkable. No mass. Reproductive: Unremarkable as visualized. ABDOMEN and PELVIS: Intraperitoneal space: See above. Bones/joints: Degenerative changes of the spine. No acute fracture. No dislocation. Soft tissues: Unremarkable. Vasculature: Atherosclerotic changes of the aorta. No abdominal aortic aneurysm. Lymph nodes: Unremarkable. No enlarged lymph nodes. IMPRESSION: No acute findings in the abdomen or pelvis. Electronically signed by: Koby Anderson MD 07/31/23 21:39 PM DICTATED BY: Hernan Ross DO Patient Name: Madeleine Crook Procedure Date: 08/01/2023 10:49 AM Date of : 1945 Admit Type: Inpatient Age: 78 Gender: Female Attending MD: Hernan Ross DO, Procedure: Upper EUS Providers: Hernan Ross DO Referring MD: Kuldeep Lopez Md Indications: Elevated liver enzymes, Suspected choledocholithiasis, Epigastric abdominal pain, Abdominal pain in the right upper quadrant Medicines: Monitored Anesthesia Care Complications: No immediate complications. Estimated blood loss: Minimal. Estimated Blood Loss: Estimated blood loss was minimal. Procedure: Pre-Anesthesia Assessment: - Prior to the procedure, a History and Physical was performed, and patient medications, allergies and sensitivities were reviewed. The patient's tolerance of previous anesthesia was reviewed. - The risks and benefits of the procedure and the sedation options and risks were discussed with the patient. All questions were answered and informed consent was obtained. - Patient identification and proposed procedure were verified prior to the procedure by the physician, the nurse and the corporate auditor. The procedure was verified in the procedure room. - Pre-procedure physical examination revealed no contraindications to sedation. - ASA Grade Assessment: III - A patient with severe systemic disease. - After reviewing the risks and benefits, the patient was deemed in satisfactory condition to undergo the procedure. - The anesthesia plan was to use general anesthesia. - Immediately prior to administration of medications, the patient was re-assessed for adequacy to receive sedatives. - The heart rate, respiratory rate, oxygen saturations, blood pressure, adequacy of pulmonary ventilation, and response to care were monitored throughout the procedure. - The physical status of the patient was re-assessed after the procedure. After obtaining informed consent, the endoscope was passed under direct vision. Throughout the procedure, the patient's blood pressure, pulse, and oxygen saturations were monitored continuously. The Endosonoscope was introduced through the mouth, and advanced to the third part of duodenum. The upper EUS was accomplished without difficulty. The patient tolerated the procedure well. Findings: ENDOSONOGRAPHIC FINDING: : There was no sign of significant endosonographic abnormality in the ampulla. No pathologic lymphadenopathy and no masses were identified. There was abnormal echogenicity in the visualized portion of the liver. This area was hyperechoic. There was no sign of significant endosonographic abnormality in the entire pancreas. The pancreatic duct measured up to 1 mm in diameter. No pathologic lymphadenopathy, no masses, no cysts, no calcifications. No lymphadenopathy seen. There was no sign of significant endosonographic abnormality in the left adrenal gland. No adrenal gland enlargement was identified. There was no sign of significant endosonographic abnormality in the common bile duct. The maximum diameter of the duct was 6 mm. No stones, no biliary sludge and ducts of normal caliber were identified. Multiple stones were visualized endosonographically in the gallbladder. They were hyperechoic and characterized by shadowing. Impression: - There was no sign of significant pathology in the ampulla. - There was abnormal echogenicity in the visualized portion of the liver. This was hyperechoic. Tissue has not been obtained. However, the endosonographic appearance is suggestive of fatty infiltration. - There was no sign of significant pathology in the entire pancreas. - Endosonographic images of the left adrenal gland were unremarkable. - There was no sign of significant pathology in the common bile duct. - Multiple stones were visualized endosonographically in the gallbladder. - No specimens collected. Recommendation: - Return patient to [facility] for ongoing care. - Advance diet as tolerated today. - Refer to a surgeon to determine if patient would benefit from a cholecystectomy. Hernan Ross D.O. Hernan Ross DO 08/01/2023 11:23:04 AM This report has been signed electronically. Note Initiated On: 08/01/2023 10:49 AM Number of Addenda: 0 I attest to the content of the Intraoperative Record and orders documented therein, exceptions below PG Care Time/CCT Total # of Minutes Spent Total Time Spent with Patient: Total time spent is greater than 50% in coordination of care (as documented) at patient's floor/unit and/or counseling patient: Coding Level of Care Code 72995 INT INP/OBS CARE MIN Diagnoses Cholelithiasis K80.20 Abdominal pain R10.9
--- NOTE | 2023-08-01 14:27 | Ultrasound Report ---
ULTRASOUND RIGHT UPPER QUADRANT ABDOMEN CLINICAL HISTORY: Right upper quadrant abdominal pain. COMPARISON STUDY: Abdominal CT dated 07/31/2023. TECHNIQUE: Real-time, grayscale, and color flow sonography of the right upper quadrant of the abdomen was performed. Images are reviewed in the transverse and longitudinal planes. FINDINGS: Liver: The liver is normal in size and echotexture. There is no intrahepatic biliary ductal dilatatio n. The main portal vein is patent. Gallbladder: The gallbladder is distended, and there are several small shadowing gallstones. The gall bladder wall is mildly thickened and edematous, measuring up to 3 mm. There is trace pericholecystic fluid. A sonographic Deleon's sign is reportedly present. The common bile duct measures up to 0.4 cm in diameter. Pancreas: Visualized portions of the pancreatic head and body are normal in appearance. Right kidney: Survey images of the right kidney demonstrate normal size and echotexture. There is no hydronephrosis. There is trace nonspecific perinephric fluid. Ascites: None. IMPRESSION: 1. Cholelithiasis with sonographic evidence of acute cholecystitis. Surgical assessment is advised. 2. There is no intra or extrahepatic biliary ductal dilatation. ACT 112: Negative or not required by law. Electronically signed by: Lakhwinder Wang M.D. 08/01/2023 2:26 PM
[2023-08-01] MEDS ORDERED: METOPROLOL TARTRATE 1 MG/ML VIAL IV STA (15:22)
--- NOTE | 2023-08-01 16:18 | Cardiology Consultation ---
Date of Consultation August 01, 2023 Assessment & Plan (1) Atrial fibrillation with rapid ventricular response: (2) CAD (coronary artery disease): (3) Esophagitis: Plan (1) Atrial fibrillation with rapid ventricular response: Patient remains in atrial fibrillation with rapid ventricular response despite 1 dose of IV metoprolol. Given clinical circumstances, rhythm control strategy recommended. Recommend transfer to PCU and initiating amiodarone infusion. Liver function test and TSH as obtained on admission were within normal limits. Patient's [id number] score is 4 for risk factors of age over 75 (2 points), female sex, and history of coronary heart disease. This indicates moderate to high risk of cardioembolic stroke in the setting of paroxysmal atrial fibrillation. Start unfractionated heparin infusion without bolus for stroke prophylaxis with caution given history of treatment with dual antiplatelet agents and diagnosis of esophagitis earlier today. Continue proton pump inhibitor therapy. (2) CAD (coronary artery disease): Patient is on aspirin and clopidogrel having a drug-eluting stent placement to the mid left anterior descending coronary artery in February,. If it is determined that long-term anticoagulation is indicated, we will likely plan on discontinuing aspirin and continuing Eliquis plus clopidogrel. Update echocardiogram. LVEF 60-64% in 2021 without significant valvular heart diease then. ST changes likely related to tachycardia. (3) Esophagitis: EGD report reviewed. Will anticoagulate with caution. History of Present Illness Attending Physician: Kuldeep Lopez MD History of Present Illness Madeleine Crook is a 78 year old female seen in cardiology consultation per the request of Dr Lopez for the evaluation per the request of Dr Lopez for the evaluation of atrial fibrillation with rapid ventricular response. Patient was admitted to the emergency department on 07/31/2023 for chief complaint of abdominal discomfort and nauseousness. She recently been hospitalized at [facility] for RSV having presented on 07/15/2023, and again on 07/18/2023. She underwent EGD today with findings of esophagitis without stigmata of bleeding. Multiple 4 to 5 mm semi-sessile polyps without bleeding were noted in the stomach per the EGD report. Gastroenterology had recommended treatment with Protonix 40 mg daily for 3 months, Carafate 1 g 4 times daily for 2 weeks, and repeat EGD in 3 months. The patient has a history of coronary heart disease and had undergone cardiac catheterization at [facility] on 03/16/2023 with findings of a hemodynamically significant lesion of the mid LAD for which she underwent PCI and placement of a drug-eluting stent. She was noted to have residual 40% stenosis of the circumflex coronary artery and 20% stenosis in the proximal LAD. She has been treated with aspirin and clopidogrel. Today she was recovering on the medical surgical unit post EGD and was noted to go into atrial fibrillation with rapid ventricular spots, initial ventricular r ates as high as the 160s to 180s beat per minute range. EKG revealed rate related ischemia with ST segment depression in the anterolateral leads. Compared to her presenting EKG on 07/31/2023, atrial fibrillation with rapid ventricular response had replaced normal sinus rhythm at [address] segment changes were new. At the time my assessment at the bedside accompanying Dr. Lopez. The patient was mildly uncomfortable. She did not have a definite sensation of a racing heart rate, but felt tired and washed out. Denies shortness of breath. Denies chest discomfort. She had already received metoprolol 5 mg IV push her ventricular rates remain elevated. Allergies Allergy/AdvReac Type Severity Reaction Status Date / Time gabapentin AdvReac EYES BLEED Verified 07/31/23 19:43 Home Medications Medication Instructions Recorded Confirmed Type aspirin 81 mg tablet,delayed 81 mg PO DAILY 07/31/23 07/31/23 History release clobetasol 0.05 % topical cream 1 applic topical DIRECTED PRN 07/31/23 07/31/23 History .[employer] clopidogrel 75 mg tablet 75 mg PO DAILY 07/31/23 07/31/23 History cyanocobalamin (vitamin B-12) 1,000 mcg PO DAILY 07/31/23 07/31/23 History 1,000 mcg tablet (Vitamin B-12) cyclosporine 0.05 % eye drops in a 1 drp ophthalmic (eye) Q12H 07/31/23 07/31/23 History dropperette (Restasis) fluticasone propionate 50 2 spray intranasal DAILY PRN Nasal 07/31/23 07/31/23 History mcg/actuation nasal Congestion spray,suspension (Flonase Allergy Relief) lactobacillus combination no.4 3 0 mmu cells PO DAILY 07/31/23 07/31/23 History billion cell capsule (Probiotic) levothyroxine 100 mcg tablet 100 mcg PO QAM 07/31/23 07/31/23 History metoprolol tartrate 25 mg tablet 25 mg PO BID 07/31/23 08/01/23 History multivitamin 1 tab PO DAILY 07/31/23 07/31/23 History nitroglycerin 0.4 mg sublingual 0.4 mg sublingual DIRECTED PRN 07/31/23 07/31/23 History tablet .CHEST PAIN omeprazole 20 mg capsule,delayed 20 mg PO DAILY 07/31/23 07/31/23 History release polyvinyl alcohol 1.4 % eye drops 1 drp ophthalmic (eye) QID PRN 07/31/23 07/31/23 History .DRY EYES potassium chloride 10 mEq 10 meq PO DAILY 07/31/23 07/31/23 History capsule,extended release rosuvastatin 20 mg tablet 20 mg PO DAILY 07/31/23 07/31/23 History Patient History Social History Smoking Status: Never smoker Hx Alcohol Use: No Hx Substance Use: No Preferred Language: Uzbek Communication Ability: Effective Bacteriology Research Assistant Required: No Beliefs That Will Affect Care: None Current Living Situation: Alone Current Living Situation Comment: Home Other Information That Helps Us Care for You: Yes (room cool at night, no socks in bed please) Feels Safe at Home: Yes Safety Concerns: Feels Safe At This Time Assistive Devices: Other Assistive Devices Comment: Reading glasses, partial dentures Review of Systems Review of Systems: All systems reviewed & are unremarkable except as noted in HPI & below Physical Exam Physical Exam: Temp Pulse Resp BP Pulse Ox O2 Del Method O2 Flow Rate 37.4 C 177 H 20 115/67 95 Nasal Cannula 2 08/01/23 14:32 08/01/23 16:06 08/01/23 15:43 08/01/23 16:06 08/01/23 15:43 08/01/23 15:43 08/01/23 15:43 Constitutional: + ill appearing Eyes: PERRL, conjunctivae normal, anicteric sclerae ENMT: external ear and nose normal, oropharynx normal Respiratory: normal respiratory effort, lungs clear to auscultation Cardiovascular: Rate/Rhythm: + tachycardic and + irregularly irregular Heart Sounds: no murmur Vessels: no JVD Extremities: no edema Gastrointestinal (Abdomen): normal bowel sounds, soft, nontender, no hepatosplenomegaly Neurologic: PERRL, EOMI, accommodation nl, no face palsy, no dysarthria (2) CAD (coronary artery disease) Coronary Disease-Associated Artery/Lesion type: [place] artery Associated angina: without angina
[2023-08-01] MEDS ORDERED: AMIODARONE IV BOLUS & DRIP IV STA (16:37)
[2023-08-01] MEDS ORDERED: STAT IV Infusion **Titration per Protocol STA (16:37)
[2023-08-01] MEDS ORDERED: Heparin IV Adult Wt-Based Standard *NO* INITIAL Bolus Protocol IV SCH (16:38)
--- NOTE | 2023-08-01 16:42 | Electrocardiogram Report ---
Test Reason : Blood Pressure : / mmHG Vent. Rate : 188 BPM Atrial Rate : 178 BPM P-R Int : 000 ms QRS Dur : 066 ms QT Int : 244 ms P-R-T Axes : 000 031 195 degrees QTc Int : 431 ms Atrial fibrillation with rapid ventricular response with premature ventricular or aberrantly conducte d complexes Low voltage QRS Diffuse Nonspecific ST and T wave abnormality Abnormal ECG When compared with ECG of 31-JUL-2023 18:30, Atrial fibrillation has replaced Sinus rhythm Vent. rate has increased BY [address] and T wave abnormality now present Confirmed by Andrew Doll ([id number]) on 08/01/2023 4:42:47 PM Referred By: REFERRED SELF Confirmed By:Andrew Doll
[2023-08-01] MEDS ORDERED: AMIODARONE / D5W 150 MG/100 ML BAG IV STA (16:50)
[2023-08-01] MEDS ORDERED: 0.2 MICRON FILTER SET 1 EACH IV STA (16:50)
[2023-08-01] MEDS ORDERED: AMIODARONE / D5W 360 MG/200 ML BAG IV ONE (17:00)
[2023-08-01] MEDS ORDERED: HEPARIN SODIUM/DEXTROSE 25,000 UNITS/500 ML BAG IV SCH (17:00)
[2023-08-01] MEDS ORDERED: METOPROLOL TARTRATE 25 MG TAB PO ONE (18:26)
--- NOTE | 2023-08-01 18:28 | Communication Note ---
Date of Service: August 01, 2023 Telemetry reassessed with patient having arrived to the fourth floor telemetry unit. Amiodarone bolus/infusion administered. Remains tachycardic, ventricular rates in the 160s. Systolic blood pressure 99 mmHg. Plan: Continue amiodarone infusion Increase metoprolol to tartrate to 25 mg by mouth 4 times daily, next dose now, 6:28 PM, dose after that will be in a.m. on 08/02/2023. wilbert
[2023-08-01 18:35] LABS: Partial Thromboplastin Ratio 1.1; Partial Thromboplastin Time 31 Seconds (21-31)
[2023-08-01] MEDS: PANTOprazole 40 MG TAB PO SCH (18:50)
[2023-08-01] MEDS: SUCRALFATE 1 GM/10 ML UDC PO SCH ×3 (20:19→20:20)
[2023-08-01] MEDS ORDERED: Nursing to Pharmacy Communication SCH (20:45)
[2023-08-01] MEDS: AMIODARONE / D5W 360 MG/200 ML BAG IV SCH (23:19)
[2023-08-02 01:14] LABS: ANTI-Xa, UFH(UnfractionatedHep 0.45 IU/ml (0.3-0.7)
[2023-08-02] MEDS: PIPERACILLIN/TAZOBACTAM 4.5 GM in DEXTROSE 5% MINI-B 100 ML IV SCH ×3 (05:15→21:53)
[2023-08-02] MEDS: LEVOTHYROXINE SODIUM 100 MCG TABLET PO SCH (05:16)
[2023-08-02 06:31] LABS: Hematocrit (blood only) 33.3 % (37.0-47.0); Mean Corpuscular Hemoglobin 33.6 pg (25.0-34.0); Mean Corpuscular Volume 101.8 fL (80.0-100.0); Platelet Count 143 K/uL (130-400); RDW Coefficient of Variation 13.6 % (11.5-14.5); RDW Standard Deviation 50.3 fL (36.4-46.3); Red Blood Count 3.27 M/uL (4.20-5.40); White Blood Count 16.72 K/ul (4.8-10.8)
[2023-08-02 06:58] LABS: Albumin Globulin Ratio 1.3 (0.9-2); BUN Creatinine Ratio 19.6 (10-20); Bilirubin,Total 0.6 mg/dl (0.2-1.0); Calcium 7.7 mg/dl (8.6-10.3); Creatinine Clr Calc Pharmacy 80.5 ml/min; Est GFR (Non-African American) 90.6 ml/min; Globulin 2.4 gm/dl (2.5-4.0); Magnesium 1.9 mg/dl (1.7-2.4); Phosphorus 2.3 mg/dl (2.5-4.9); Potassium 3.4 mmol/L (3.5-5.1); Total Protein 5.4 gm/dl (6.0-8.3)
--- NOTE | 2023-08-02 08:33 | Surgery Progress Note ---
Date of Service August 02, 2023 Assessment & Plan (1) Abdominal pain: Plan: Patient reports abdominal pain comes and goes, no known triggers, gas pains Denies CP, SOB, Has c/o sinus pressure, reports chronic sinus issues, HAs fluticasone order by primary team OOB without assist Feeling tired VSS WBC 16 , LFT wnl , on IV zosyn Pt on Plavix and heparin POD 1 EUS gastritis noted GI recs : Protonix or omeprazole 40 mg daily Carafate 1 g 4 times daily for 2 weeks Repeat upper endoscopy to assess healing in 3 months HIDA scan today to eval GB Will continue to monitor Admission and Anticipated Discharge Date Admission Date: August 01, 2023 Supervising Physician Co-Signing Physician Notes Patient seen and examined, agree with above. Admitted with epigastric pain, EGD showed gastritis with ulcerations. She is feeling better with PPI. She has tolerated clear liquids. HIDA scan today showed no evidence of acute cholecystitis. Her pain is improved. Given that she is on Plavix and her heart history, would recommend slowly advancing diet. If she tolerates that she can be discharged home and follow-up with us as an outpatient to discuss possible cholecystectomy in the future. If she has recurrence of her symptoms with postprandial pain that we believe is associated with her gallbladder, then she may stay through the weekend and plan for cholecystectomy sometime next week after she has been off Plavix for 5 days. Subjective Patient reports abdominal pain comes and goes, no known triggers, gas pains Denies CP, SOB, Has c/o sinus pressure, reports chronic sinus issues OOB without assist Feeling tired Review of Systems Constitutional: no fever and no chills Ear, Nose, Mouth, Throat: + nasal congestion and + sinus pain/pres sure Respiratory: no dyspnea Cardiovascular: no chest pain Gastrointestinal: + abdominal pain and + cramping; no naus ea and no vomiting Physical Exam Physical Exam: alert oriented Constitutional: cooperative; no acute distress Respiratory: normal respiratory effort and able to speak in complete sentences; no respiratory distress Cardiovascular: Rate/Rhythm: regular rate Gastrointestinal (Abdomen): Inspection/Auscultation: abdomen not distended Percussion/Palpation: + abdomen tender (TTP RUQ and RLQ ), + guarding and abdomen soft; abdomen not rigid Results & Data Vital Signs (Past 12 Hours) Vital Signs Temp Pulse Pulse Pulse Resp BP Pulse Ox 08/02/23 07:37 98.1 F 71 19 109/62 94 08/02/23 03:24 99.0 F 75 18 116/70 96 08/01/23 23:30 98.6 F 76 18 112/76 96 08/01/23 22:39 75 08/01/23 21:58 99.9 F H 79 18 113/64 96 O2 Del Method O2 Flow Rate 08/02/23 07:37 Room Air 08/02/23 03:24 Nasal Cannula 2 08/01/23 23:30 Nasal Cannula 2 08/01/23 22:39 08/01/23 21:58 Nasal Cannula 2 PG Care Time/CCT Total # of Minutes Spent Total Time Spent with Patient: Total time spent is greater than 50% in coordination of care (as documented) at patient's floor/unit and/or counseling patient: Coding Level of Care Code 51964 SUB INP/OBS CARE 1/25MIN Diagnoses Abdominal pain R10.9
[2023-08-02] MEDS ORDERED: POTASSIUM PHOS 3 MMOL/1 ML INFUSION IV STA (09:05)
--- NOTE | 2023-08-02 09:12 | Hospitalist Progress Note ---
Date of Service August 02, 2023 Assessment & Plan (1) Abdominal pain: Plan: 78 yo F w/ type 2 diabetes seems not on medication, hypothyroidism, chronic recurrent sinusitis, history of CAD s/p stents in February 2023, hypertension, paroxysmal supraventricular tachycardia, GERD, vitamin B12 deficiency, epiglottic appendagitis urinary incontinence, generalized osteoarthritis, cervical radiculitis, chronic abdominal pain, progressive vascular leukoencephalopathy, circumscribed scleroderma, s/p cervical fusion surgery, general anxiety disorder, ambulatory dysfunction presents with ongoing nausea vomiting abdominal pain diarrhea and hip pain. Patient was seen at [facility] on with fever and vomiting and burning micturition and found to RSV and was discharged home. She went back to [facility] in July 18 with persistent symptoms and chest x-ray possible pneumonia and her initial lactic acid was 2.6 and repeat is 1.6 and she was discharged on Augmentin and azithromycin. She finished antibiotics yesterday. Again starting developing nausea vomiting severe abdominal pain and hip pain and pain radiating to groins which prompted her to come to the ER today. Hemodynamically stable. Initial lactic acid was 4.3. Repeat lactic is 2.8. Complains of some burning micturition. She was given Rocephin. CT abdomen pelvis is okay. No leukocytosis. Afebrile. States sometimes gets headache. Vision is okay. She has some chronic left-sided neck pain and jaw pain from history of dental infection. No neck stiffness. Still nauseous. Denies any chest pain. No shortness of breath. No cough. No blood in the stools. Hemodynamics okay. Abdominal pain Nausea vomiting diarrhea Going on since time Just finished antibiotics Augmentin and azithromycin for possible pneumonia Initial lactic was 4.2 and repeat is 2.8 Elevated procalcitonin at 8 No obvious source of infection identified No leukocytosis initially on admission - WBC 8.5K, then up at 12.7k, now at 16k (after endoscopy and biopsy) UA is negative Chest x-ray w/some interstitial thickening, seems chronic Empirically started on Zosyn, which will be continued IV Protonix IV fluids IV pain meds as needed Will follow blood cultures and stool studies GI consulted for further recommendations - per GI - Impression: Patient with intermittent discomfort, based on the history I wonder if she may have symptoms related to cholelithiasis. I would suggest we do further evaluation with upper endoscopy and endoscopic ultrasound to screen for choledocholithiasis, if positive for choledocholithiasis we have consented the patient for ERCP. 08/01/23 - The patient underwent upper endoscopy and endoscopic ultrasound today. She was found to have evidence of esophagitis, gastritis in addition to n umerous gastric polyps. The endoscopic ultrasound was notable for numerous stones within the gallbladder. Recommendations Protonix or omeprazole 40 mg daily Carafate 1 g 4 times daily for 2 weeks Repeat upper endoscopy to assess healing in 3 months Consider general surgery evaluation to determine if patient would benefit from cholecystectomy General surgery consulted - HIDA scan ordered Elevated lactic acidosis CT abdomen pelvis okay As patient has had some headache obtained CT head and some cough obtained CT of the chest CT head negative CT chest - negative Follow repeat labs Antibiotics as above History of CAD s/p stents in February 2023 Continue home aspirin, Plavix, beta-andreia and statin Afib w/ RVR - developed after having endoscopy - received iv metoprolol w/o much improvement in HR - started on IV heparin and amiodarone - cardiology consulted and following closely - converted to sinus rhythm Hypertension On metoprolol, now on amio gtt Will monitor Hyperlipidemia On statin Diabetes Not on medications Follow HbA1c levels Sliding scale Hypothyroidism On Synthyroid TSH 2.5 History of SVT On metoprolol, now on amio gtt DVT prophylaxis iv heparin Disposition Med/tele Full code Admission and Anticipated Discharge Date Admission Date: August 01, 2023 Subjective Pt seen in follow up of abd. pain, n/v , recent URI, current Biofire negative, lactic acid elevated, UA negative Was started on IV zosyn, GI consulted - underwent endoscopy After endoscopy developed Afib w/ RVR - started on amiodarone , heparin , transferred to PCU - cardiology consulted Seen by gen. surgery - plan for HIDA scan today Currently sitting up in bed in NAD, reports having abd. discomfort, no chest pain or shortness of breath. Had coronary stent placed reportedly about 6 months ago. Says she was supposed to have endoscopy in August. Review of Systems Review of Systems: All systems reviewed & are unremarkable except as noted in Subjective Physical Exam Physical Exam: General- WD/WN F in NAD Head- atraumatic Eyes- EOMI, PERRL. Neck- supple, no JVD. Lungs- clear to auscultation no wheezing or crackles. Heart- regular rhythm; no murmur, no gallop. Abdomen- normal bowel sounds, soft, mild diffuse tender more in epigastric region, no distension. Extremities- no pretibial edema, no erythema seen Neuro- alert, oriented x 3; PERRL, no facial palsy; no dysarthria; moves extremities. Skin- warm & dry Results & Data Results & Data Vital Signs (Past 12 Hours) Vital Signs Temp Pulse Pulse Pulse Resp BP Pulse Ox 08/02/23 07:37 36.7 C 71 19 109/62 94 08/02/23 03:24 37.2 C 75 18 116/70 96 08/01/23 23:30 37.0 C 76 18 112/76 96 08/01/23 22:39 75 08/01/23 21:58 37.7 C H 79 18 113/64 96 O2 Del Method O2 Flow Rate 08/02/23 07:37 Room Air 08/02/23 03:24 Nasal Cannula 2 08/01/23 23:30 Nasal Cannula 2 08/01/23 22:39 08/01/23 21:58 Nasal Cannula 2 Laboratory Results 08/02/23 08/02/23 08/02/23 Range/Units 07:43 05:57 00:24 WBC 16.72 H (4.8-10.8) K/ul RBC 3.27 L (4.20-5.40) M/uL Hgb 11.0 L (12.0-16.0) g/dl Hct 33.3 L (37.0-47.0) % MCV 101.8 H (80.0-100.0) fL MCH 33.6 (25.0-34.0) pg MCHC 33.0 (32.0-36.0) g/dL RDW Std Deviation 50.3 H (36.4-46.3) fL RDW Coeff of Ronit 13.6 (11.5-14.5) % Plt Count 143 (130-400) K/uL MPV 11.0 (9.4-12.4) fL APTT (21-31) Seconds PTT Ratio Heparin Anti-Xa, Unfract 0.45 (0.3-0.7) IU/ml Sodium 137 (136-145) mmol/L Potassium 3.4 L (3.5-5.1) mmol/L Chloride 109 H (98-107) mmol/L Carbon Dioxide 21 (21-32) mmol/L Anion Gap 7 (3-11) BUN 11 (6-23) mg/dl Creatinine 0.56 L (0.6-1.2) mg/dl Est Cr Clr Drug Dosing 80.5 ml/min Est GFR ( Amer) 105.0 ml/min Est GFR (Non-Af Amer) 90.6 ml/min BUN/Creatinine Ratio 19.6 (10-20) Glucose 128 H (70-99(Fasting)) mg/dl POC Glucose 118 H (70-99) mg/dl Calcium 7.7 L (8.6-10.3) mg/dl Phosphorus 2.3 L (2.5-4.9) mg/dl Magnesium 1.9 (1.7-2.4) mg/dl Total Bilirubin 0.6 (0.2-1.0) mg/dl AST 32 (13-39) U/L ALT 18 (7-52) U/L Alkaline Phosphatase 54 (34-104) U/L Total Protein 5.4 L (6.0-8.3) gm/dl Albumin 3.0 L (3.4-5.0) gm/dl Globulin 2.4 L (2.5-4.0) gm/dl Albumin/Globulin Ratio 1.3 (0.9-2) 08/01/23 08/01/23 08/01/23 Range/Units 21:45 17:49 16:44 WBC (4.8-10.8) K/ul RBC (4.20-5.40) M/uL Hgb (12.0-16.0) g/dl Hct (37.0-47.0) % MCV (80.0-100.0) fL MCH (25.0-34.0) pg MCHC (32.0-36.0) g/dL RDW Std Deviation (36.4-46.3) fL RDW Coeff of Ronit (11.5-14.5) % Plt Count (130-400) K/uL MPV (9.4-12.4) fL APTT 31 (21-31) Seconds PTT Ratio 1.1 Heparin Anti-Xa, Unfract (0.3-0.7) IU/ml Sodium (136-145) mmol/L Potassium (3.5-5.1) mmol/L Chloride (98-107) mmol/L Carbon Dioxide (21-32) mmol/L Anion Gap (3-11) BUN (6-23) mg/dl Creatinine (0.6-1.2) mg/dl Est Cr Clr Drug Dosing ml/min Est GFR ( Amer) ml/min Est GFR (Non-Af Amer) ml/min BUN/Creatinine Ratio (10-20) Glucose (70-99(Fasting)) mg/dl POC Glucose 146 H 104 H (70-99) mg/dl Calcium (8.6-10.3) mg/dl Phosphorus (2.5-4.9) mg/dl Magnesium (1.7-2.4) mg/dl Total Bilirubin (0.2-1.0) mg/dl AST (13-39) U/L ALT (7-52) U/L Alkaline Phosphatase (34-104) U/L Total Protein (6.0-8.3) gm/dl Albumin (3.4-5.0) gm/dl Globulin (2.5-4.0) gm/dl Albumin/Globulin Ratio (0.9-2) 08/01/23 Range/Units 12:08 WBC (4.8-10.8) K/ul RBC (4.20-5.40) M/uL Hgb (12.0-16.0) g/dl Hct (37.0-47.0) % MCV (80.0-100.0) fL MCH (25.0-34.0) pg MCHC (32.0-36.0) g/dL RDW Std Deviation (36.4-46.3) fL RDW Coeff of Ronit (11.5-14.5) % Plt Count (130-400) K/uL MPV (9.4-12.4) fL APTT (21-31) Seconds PTT Ratio Heparin Anti-Xa, Unfract (0.3-0.7) IU/ml Sodium (136-145) mmol/L Potassium (3.5-5.1) mmol/L Chloride (98-107) mmol/L Carbon Dioxide (21-32) mmol/L Anion Gap (3-11) BUN (6-23) mg/dl Creatinine (0.6-1.2) mg/dl Est Cr Clr Drug Dosing ml/min Est GFR ( Amer) ml/min Est GFR (Non-Af Amer) ml/min BUN/Creatinine Ratio (10-20) Glucose (70-99(Fasting)) mg/dl POC Glucose 109 H (70-99) mg/dl Calcium (8.6-10.3) mg/dl Phosphorus (2.5-4.9) mg/dl Magnesium (1.7-2.4) mg/dl Total Bilirubin (0.2-1.0) mg/dl AST (13-39) U/L ALT (7-52) U/L Alkaline Phosphatase (34-104) U/L Total Protein (6.0-8.3) gm/dl Albumin (3.4-5.0) gm/dl Globulin (2.5-4.0) gm/dl Albumin/Globulin Ratio (0.9-2) Medications Administered Current Inpatient Medications Acetaminophen (Acetaminophen 325 Mg Tab) 650 mg PO Q4H PRN PRN Reason: Pain or Fever Stop: 08/31/23 00:29 Artificial Tears (Artificial Tears) 1 drops OP QID PRN PRN Reason: .DRY EYES Stop: 08/31/23 00:29 Aspirin (Aspirin 81 Mg Ectab) 81 mg PO DAILY KORIN Stop: 08/31/23 08:59 Last Admin: 08/01/23 08:59 Dose: 81 mg Clopidogrel Bisulfate (Clopidogrel Bisulfate 75 Mg Tab) 75 mg PO DAILY KORIN Stop: 08/31/23 08:59 Last Admin: 08/01/23 08:59 Dose: 75 mg Cyanocobalamin (Cyanocobalamin (B-12) 500 Mcg Tablet) 1,000 mcg PO DAILY KORIN Stop: 08/31/23 08:59 Last Admin: 08/01/23 09:00 Dose: 1,000 mcg Dextrose (Dextrose 50% 50 Ml Syringe) 25 - 50 ml IV UD PRN; Protocol PRN Reason: Hypoglycemia Protocol Stop: 08/31/23 00:29 Fluticasone Propionate (Fluticasone Propionate Na Spr 16 Gm Btl) 2 sprays NA DAILY PRN PRN Reason: Nasal Congestion Stop: 08/31/23 00:29 Glucose (Glucose 40% Gel 15 Gm Tube) 15 - 30 gm PO UD PRN; Protocol PRN Reason: Hypoglycemia Protocol Stop: 08/31/23 00:29 Hydromorphone HCl (Hydromorphone Inj 0.5 Mg/0.5 Ml Syr) 0.5 mg IV Q3H PRN PRN Reason: Pain Stop: 08/15/23 00:29 Last Admin: 08/01/23 14:24 Dose: 0.5 mg Piperacillin Sod/Tazobactam (Sod 4.5 gm/ Dextrose) 100 mls @ 25 mls/hr IV Q8H [facility]; Protocol Stop: 08/11/23 05:59 Last Admin: 08/02/23 05:15 Dose: 25 mls/hr Sodium Chloride (Nss) 1,000 mls @ 125 mls/hr IV .Q8H [facility] Stop: 08/31/23 00:29 Last Admin: 08/01/23 22:06 Dose: 125 mls/hr Heparin Sodium/Dextrose (Heparin Sodium/Dextrose) 25,000 units in 500 mls @ 21 mls/hr IV .[id number] [facility]; Protocol Stop: 08/31/23 16:59 Last Titration: 08/02/23 07:04 Dose: 1,050 units/hr, 21 mls/hr Amiodarone HCl/Dextrose (Nexterone / D5w) 360 mg in 200 mls @ 16.667 mls/hr IV .Q12H [facility] Stop: 08/31/23 22:59 Last Infusion: 08/02/23 07:04 Dose: 0.5 mg/min, 16.7 mls/hr Insulin Aspart (Insulin Aspart Per Unit Charge) 0 units SC ACHS KORIN Stop: 08/31/23 00:29 Last Admin: 08/01/23 22:05 Dose: 1 units Levothyroxine Sodium (Levothyroxine Sodium 100 Mcg Tablet) 100 mcg PO DAILYBB KORIN Stop: 08/31/23 06:29 Last Admin: 08/02/23 05:16 Dose: 100 mcg Metoprolol Tartrate (Metoprolol Tartrate 25 Mg Tab) 25 mg PO QID [facility] Stop: 09/01/23 08:59 Miscellaneous (Carbohydrates For Hypoglycemia ) 15 - 30 gm PO UD PRN PRN Reason: Hypoglycemia Protocol Stop: 08/31/23 00:29 Multivitamins (Multivitamin Tab) 1 tab PO DAILY [facility] Stop: 08/31/23 08:59 Last Admin: 08/01/23 09:01 Dose: 1 tab Nitroglycerin (Nitroglycerin Sl 0.4 Mg/Tab Tab) 0.4 mg SL Q5M PRN PRN Reason: Chest Pain Stop: 08/31/23 00:29 Ondansetron HCl (Ondansetron Inj 2 Mg/Ml 2 Ml Vial) 4 mg IV Q6H PRN PRN Reason: Nausea Stop: 08/31/23 00:29 Pantoprazole Sodium (Pantoprazole 40 Mg Tab) 40 mg PO QAM KORIN Stop: 08/31/23 11:44 Last Admin: 08/01/23 18:50 Dose: 40 mg Potassium Chloride (Potassium Chloride 10 Meq Tabcr) 10 meq PO DAILY KORIN Stop: 08/31/23 08:59 Last Admin: 08/01/23 09:01 Dose: 10 meq Potassium Phosphate (Potassium Phos 3 Mmol/1 Ml Infusion) 21 mmol IV NOW STA Stop: 08/02/23 09:06 Rosuvastatin Calcium (Rosuvastatin Calcium 20 Mg Tab) 20 mg PO DAILY KORIN Stop: 08/31/23 08:59 Last Admin: 08/01/23 09:01 Dose: 20 mg Sucralfate (Sucralfate 1 Gm/10 Ml Udc) 1 gm PO QID KORIN Stop: 08/31/23 12:59 Last Admin: 08/01/23 20:20 Dose: Not Given
[2023-08-02] MEDS ORDERED: POTASSIUM PHOSPHATE 21 MMOL in SODIUM CHLORIDE 0.9% 500 ML IV ONE (09:15)
[2023-08-02] MEDS: SUCRALFATE 1 GM/10 ML UDC PO SCH ×4 (09:16→19:29)
[2023-08-02] MEDS: METOPROLOL TARTRATE 25 MG TAB PO SCH ×4 (09:16→19:29)
[2023-08-02] MEDS: INSULIN ASPART PER UNIT CHARGE SC SCH ×4 (09:17→21:53)
[2023-08-02] MEDS: SODIUM CHLORIDE 0.9% 1,000 ML IV SCH ×3 (09:26→21:59)
[2023-08-02] MEDS ORDERED: POTASSIUM CHLORIDE CRTAB 20 MEQ TABCR PO STA (09:29)
--- NOTE | 2023-08-02 09:30 | Cardiology Progress Note ---
Date of Service August 02, 2023 Assessment & Plan (1) Atrial fibrillation with rapid ventricular response: (2) CAD (coronary artery disease): (3) Esophagitis: Plan (1) Atrial fibrillation with rapid ventricular response: Pt with new onset of atrial fibrillation with rapid ventricular rate at just after 1500 on 08/01/23. Converted to sinus rhythm , 08/01/23 at 20:09 on IV amiodarone and oral metoprolol. Overnight SR in the 70s noted. Patient's [id number] score is 4 for risk factors of age over 75 (2 points), female sex, and history of coronary heart disease. This indicates moderate to high risk of cardioembolic stroke in the setting of paroxysmal atrial fibrillation. UF heparin had been started, however, given EGD with biopsies and findings of esophagitis, and need for antiplatelet therapy, will hold heparin. Continue IV amiodarone and metoprolol for rhythm control strategy. Continue proton pump inhibitor therapy. (2) CAD (coronary artery disease): Patient is on aspirin and clopidogrel having a drug-eluting stent placement to the mid left anterior descending coronary artery in February,. If it is determined that long-term anticoagulation is indicated, although an option would be to stop aspirin and proceed with a DOAC and clopidogrel given ongoing work up for abdominal pain with HIDA scan planned today and findings of esophagitis, will hold heparin and hold off on DOAC and proceed with ongoing ASA and clopidogrel. Repeat echocardiogram completed and will be reviewed. (3) Esophagitis: EGD report reviewed. --General surgery consulted for abdominal pain . HIDA scan planned today. --Will reassess DVT prophylaxis plan on 08/03/23 with UF heparin infusion held this am. Admission and Anticipated Discharge Date Admission Date: August 01, 2023 Subjective Patient seen in cardiology follow up. She is feeling mildly improved. Still tired and washed out. Physical Exam Physical Exam: Temp Pulse Resp BP Pulse Ox O2 Del Method O2 Flow Rate 36.7 C 71 19 109/62 94 Room Air 2 08/02/23 07:37 08/02/23 07:37 08/02/23 07:37 08/02/23 07:37 08/02/23 07:37 08/02/23 07:37 08/02/23 03:24 Constitutional: + ill appearing Eyes: PERRL, conjunctivae normal, anicteric sclerae ENMT: external ear and nose normal, oropharynx normal Respiratory: normal respiratory effort, lungs clear to auscultation Cardiovascular: Rate/Rhythm: + tachycardic and + irregularly irregular Heart Sounds: no murmur Vessels: no JVD Extremities: no edema Gastrointestinal (Abdomen): normal bowel sounds, soft, nontender, no hepatosplenomegaly Neurologic: PERRL, EOMI, accommodation nl, no face palsy, no dysarthria Results & Data Vital Signs (Past 12 Hours) Vital Signs Temp Pulse Pulse Pulse Resp BP Pulse Ox 08/02/23 07:37 36.7 C 71 19 109/62 94 08/02/23 03:24 37.2 C 75 18 116/70 96 08/01/23 23:30 37.0 C 76 18 112/76 96 08/01/23 22:39 75 08/01/23 21:58 37.7 C H 79 18 113/64 96 O2 Del Method O2 Flow Rate 08/02/23 07:37 Room Air 08/02/23 03:24 Nasal Cannula 2 08/01/23 23:30 Nasal Cannula 2 08/01/23 22:39 08/01/23 21:58 Nasal Cannula 2 Laboratory Results Cardiac Enzymes 08/02/23 Range/Units 05:57 AST 32 (13-39) U/L Coagulation 08/01/23 Range/Units 17:49 APTT 31 (21-31) Seconds CBC 08/02/23 Range/Units 05:57 WBC 16.72 H (4.8-10.8) K/ul RBC 3.27 L (4.20-5.40) M/uL Hgb 11.0 L (12.0-16.0) g/dl Hct 33.3 L (37.0-47.0) % Plt Count 143 (130-400) K/uL Comprehensive Metabolic Panel 08/02/23 Range/Units 05:57 Sodium 137 (136-145) mmol/L Potassium 3.4 L (3.5-5.1) mmol/L Chloride 109 H (98-107) mmol/L Carbon Dioxide 21 (21-32) mmol/L BUN 11 (6-23) mg/dl Creatinine 0.56 L (0.6-1.2) mg/dl Glucose 128 H (70-99(Fasting)) mg/dl Calcium 7.7 L (8.6-10.3) mg/dl AST 32 (13-39) U/L ALT 18 (7-52) U/L Alkaline Phosphatase 54 (34-104) U/L Total Protein 5.4 L (6.0-8.3) gm/dl Albumin 3.0 L (3.4-5.0) gm/dl Intake and Output 08/01/23 08/02/23 08/02/23 22:59 06:59 14:59 Intake Total 1971.018 / 5384.483 1413.465 / 5384.483 362.075 / 362.075 Balance 1971.018 / 5384.483 1413.465 / 5384.483 362.075 / 362.075 Intake: IV 1871.018 / 4834.483 1363.465 / 4834.483 362.075 / 362.075 Amiodarone / D5w 150 mg In 100 100 / 100 ml @ 600 mls/hr IV NOW [facility] Rx#: [id number] Amiodarone / D5w 360 mg In 200 59.385 / 200.000 140.615 / 200.000 129.425 / 129.425 ml @ 0.5 MG/MIN 16.667 mls/hr IV .Q12H [facility] Rx#:[id number] Heparin Sodium/Dextrose 25,000 22.05 / 144.90 122.85 / 144.90 132.65 / 132.65 units In 500 ml @ 1,050 UNITS/ HR 21 mls/hr IV .[id number] [facility] Rx #:[id number] Piperacillin/Tazobactam 4.5 gm 100 / 300 100 / 300 100 / 100 In Dextrose 5% Mini-B 100 ml @ 25 mls/hr IV Q8H [facility] Rx#: [id number] Sodium Chloride 0.9% 1,000 ml @ 1589.583 / 3589.583 1000 / 3589.583 125 mls/hr IV .Q8H [facility] Rx#: [id number] Oral 100 / 150 50 / 150 Other: # Unmeasured Voids 1 1 Weight 70.6 kg Weight Measurement Method Built in [facility] (2) CAD (coronary artery disease) Coronary Disease-Associated Artery/Lesion type: [place] artery Associated angina: without angina [place] vs. transplanted heart: [place] heart Qualified Code(s): I25.10 - Atherosclerotic heart disease of [place] coronary artery without angina pectoris
[2023-08-02] MEDS: ASPIRIN 81 MG ECTAB PO SCH (10:12)
[2023-08-02] MEDS: ROSUVASTATIN CALCIUM 20 MG TAB PO SCH (10:12)
[2023-08-02] MEDS: CYANOCOBALAMIN (B-12) 500 MCG TABLET PO SCH (10:12)
[2023-08-02] MEDS: POTASSIUM CHLORIDE 10 MEQ TABCR PO SCH (10:12)
[2023-08-02] MEDS: PANTOprazole 40 MG TAB PO SCH (10:12)
[2023-08-02] MEDS: MULTIVITAMIN TAB PO SCH (10:12)
[2023-08-02] MEDS: CLOPIDOGREL BISULFATE 75 MG TAB PO SCH (10:13)
--- NOTE | 2023-08-02 12:24 | Nuclear Medicine Report ---
NUCLEAR MEDICINE HEPATOBILIARY SCAN HISTORY: cholelithiasis, possible cholecystitis COMPARISON: Abdominal ultrasound 08/01/2023. TECHNIQUE: Immediately following the intravenous administration of 5.5 mCi Tc-99m Choletec, dynamic a nterior abdominal imaging was performed. FINDINGS: Uniform hepatic tracer accumulation is shown. Prompt intrahepatic biliary excretion is seen. The gall bladder, common bile duct, and small bowel are all visualized by 40 minutes. This appearance represen ts the normal sequence of biliary excretion. IMPRESSION: 1. No evidence for cystic duct obstruction. ACT 112: Negative or not required by law. Electronically signed by: Javier Gonzalez M.D. 08/02/2023 12:23 PM
[2023-08-02] MEDS ORDERED: SODIUM CHLORIDE 0.65% NA SOLN 45 ML (OCEAN) ONE (12:34)
[2023-08-02] MEDS: AMIODARONE / D5W 360 MG/200 ML BAG IV SCH ×2 (12:35→21:59)
--- NOTE | 2023-08-02 12:35 | Electrocardiogram Report ---
Test Reason : Blood Pressure : / mmHG Vent. Rate : 071 BPM Atrial Rate : 071 BPM P-R Int : 148 ms QRS Dur : 078 ms QT Int : 486 ms P-R-T Axes : 019 028 117 degrees QTc Int : 528 ms Normal sinus rhythm Low voltage QRS T wave abnormality, consider anterolateral ischemia Prolonged QT Abnormal ECG When compared with ECG of 01-AUG-2023 15:26, HR has decreased by 117 bpm Atrial fibrillation no longer present Confirmed by Andrew Doll ([id number]) on 08/02/2023 12:34:48 PM Referred By: REFERRED SELF Confirmed By:Andrew Doll
[2023-08-03] MEDS: HYDROmorphone INJ 0.5 MG/0.5 ML SYR IV PRN (01:16)
[2023-08-03] MEDS: SODIUM CHLORIDE 0.9% 1,000 ML IV SCH ×3 (05:54→22:29)
[2023-08-03] MEDS: PIPERACILLIN/TAZOBACTAM 4.5 GM in DEXTROSE 5% MINI-B 100 ML IV SCH ×3 (05:54→20:45)
[2023-08-03] MEDS: LEVOTHYROXINE SODIUM 100 MCG TABLET PO SCH (05:55)
[2023-08-03] MEDS: MULTIVITAMIN TAB PO SCH (08:54)
[2023-08-03] MEDS: SUCRALFATE 1 GM/10 ML UDC PO SCH ×4 (08:54→20:39)
[2023-08-03] MEDS: METOPROLOL TARTRATE 25 MG TAB PO SCH ×2 (08:54→12:11)
[2023-08-03] MEDS: CLOPIDOGREL BISULFATE 75 MG TAB PO SCH (08:55)
[2023-08-03] MEDS: PANTOprazole 40 MG TAB PO SCH (08:55)
[2023-08-03] MEDS: ASPIRIN 81 MG ECTAB PO SCH (08:55)
[2023-08-03] MEDS: CYANOCOBALAMIN (B-12) 500 MCG TABLET PO SCH (08:55)
[2023-08-03] MEDS: ROSUVASTATIN CALCIUM 20 MG TAB PO SCH (08:55)
[2023-08-03 08:57] LABS: Hematocrit (blood only) 32.8 % (37.0-47.0); Mean Corpuscular Hemoglobin 33.6 pg (25.0-34.0); Mean Corpuscular Hgb Conc 33.5 g/dL (32.0-36.0); Mean Corpuscular Volume 100.3 fL (80.0-100.0); Mean Platelet Volume 11.2 fL (9.4-12.4); Platelet Count 118 K/uL (130-400); RDW Coefficient of Variation 13.2 % (11.5-14.5); RDW Standard Deviation 48.3 fL (36.4-46.3); Red Blood Count 3.27 M/uL (4.20-5.40); White Blood Count 12.76 K/ul (4.8-10.8)
[2023-08-03 09:03] LABS: Albumin Globulin Ratio 1.3 (0.9-2); Albumin Level 3.2 gm/dl (3.4-5.0); BUN Creatinine Ratio 13.5 (10-20); Bilirubin,Total 0.7 mg/dl (0.2-1.0); Calcium 7.8 mg/dl (8.6-10.3); Creatinine Clr Calc Pharmacy 90.8 ml/min; Est GFR (African American) 107.6 ml/min; Est GFR (Non-African American) 92.8 ml/min; Globulin 2.5 gm/dl (2.5-4.0); Magnesium 1.8 mg/dl (1.7-2.4); Phosphorus 2.2 mg/dl (2.5-4.9); Potassium 3.6 mmol/L (3.5-5.1); Total Protein 5.7 gm/dl (6.0-8.3)
[2023-08-03] MEDS: POTASSIUM CHLORIDE 10 MEQ TABCR PO SCH (09:03)
[2023-08-03] MEDS: INSULIN ASPART PER UNIT CHARGE SC SCH ×4 (09:03→21:01)
[2023-08-03 09:06] LABS: ANTI-Xa, UFH(UnfractionatedHep < 0.10 IU/ml (0.3-0.7)
[2023-08-03] MEDS: AMIODARONE / D5W 360 MG/200 ML BAG IV SCH (10:12)
[2023-08-03] MEDS: PANTOprazole 40 MG in SYRINGE 0 ML IV SCH ×2 (12:11→20:39)
--- NOTE | 2023-08-03 13:20 | Surgery Progress Note ---
Date of Service August 03, 2023 Assessment & Plan (1) Abdominal pain: Plan: Pt underwent EUS...found to have gastritis and cholelithiasis HIDA obtained yesterday revealed no acute cholecystitis Recommend advancing diet as tolerates, if goes well may be discharged to home from our standpoint Let her be treated for her gastritis and see if this resolves symptoms, if not and continues to have pain she may f/u with us as an outpatient to discuss possible lap steff Admission and Anticipated Discharge Date Admission Date: August 01, 2023 Supervising Physician Co-Signing Physician Notes Patient seen and examined, agree with above. Complains of some esophagitis and reflux overnight after [place], otherwise tolerating diet. Afebrile stable vitals, abdomen soft, nontender. No evidence of acute cholecystitis on HIDA, no indication for acute cholecystectomy. She is still on Plavix. Okay for dischar ge to home from general surgery standpoint, she may follow-up in the clinic as she wishes to discuss possible cholecystectomy. Surgery will sign off, call with questions or concerns Subjective Patient seen. Had some abdominal discomfort while drinking some gingerale, otherwise she has been doing fine and tolerating a liquid diet. Physical Exam Physical Exam: awake/alert, no distress Gastrointestinal (Abdomen): Percussion/Palpation: abdomen soft Results & Data Vital Signs (Past 12 Hours) Vital Signs Temp Pulse Pulse Pulse Resp BP Pulse Ox 08/03/23 11:29 37.1 C 61 17 136/78 95 08/03/23 10:52 67 08/03/23 08:06 36.7 C 69 19 138/74 93 08/03/23 03:54 36.6 C 70 20 138/71 92 O2 Del Method 08/03/23 11:29 Room Air 08/03/23 10:52 08/03/23 08:06 Room Air 08/03/23 03:54 Room Air PG Care Time/CCT Total # of Minutes Spent Total Time Spent with Patient: Total time spent is greater than 50% in coordination of care (as documented) at patient's floor/unit and/or counseling patient: Coding Level of Care Code 46310 SUB INP/OBS CARE 1/25MIN Diagnoses Abdominal pain R10.9
--- NOTE | 2023-08-03 14:00 | Cardiology Progress Note ---
Date of Service August 03, 2023 Assessment & Plan (1) Atrial fibrillation with rapid ventricular response: (2) CAD (coronary artery disease): (3) Esophagitis: Plan (1) Atrial fibrillation with rapid ventricular response: Pt with new onset of atrial fibrillation with rapid ventricular rate at just after 1500 on 08/01/23. Converted to sinus rhythm , 08/01/23 at 20:09 on IV amiodarone and oral metoprolol. Overnight SR in the 60-70s noted. Patient's [id number] score is 4 for risk factors of age over 75 (2 points), female sex, and history of coronary heart disease. This indicates moderate to high risk of cardioembolic stroke in the setting of paroxysmal atrial fibrillation. UF heparin had been started, however, given EGD with biopsies and findings of esophagitis, and need for antiplatelet therapy, will hold heparin. Continue proton pump inhibitor therapy. DC IV amiodarone and start oral amiodarone 200 mg by mouth two times per day. Change metoprolol to succinate 25 mg by mouth two times per day. (2) CAD (coronary artery disease): Patient is on aspirin and clopidogrel having a drug-eluting stent placement to the mid left anterior descending coronary artery in February,. If it is determined that long-term anticoagulation is indicated, an option would be to stop aspirin and proceed with a DOAC and clopidogrel. Given ongoing abdominal pain and findings of esophagitis and gastritis , will hold heparin and hold off on DOAC and proceed with ongoing ASA and clopidogrel. Echocardiogram performed 08/02/23: SR in the 70s during echo. Normal wall motion. LVEF 55-60% Grade II diastolic dysfunction. Anterolateral T wave changes noted on post conversion EKG on 08/02/23. Will repeat EKG in follow up. (3) Esophagitis / gastritis As above --resume lovenox for DVT prophylaxis. Admission and Anticipated Discharge Date Admission Date: August 01, 2023 Subjective Patient seen in cardiology follow up of new PAF and chronic CAD. Pt with ongoing abdominal pain. HIDA scan was negative. She remains in SR in the 60s. No additional AF x 2 days. Physical Exam Constitutional: + ill appearing Eyes: PERRL, conjunctivae normal, anicteric sclerae ENMT: external ear and nose normal, oropharynx normal Respiratory: normal respiratory effort, lungs clear to auscultation Cardiovascular: Rate/Rhythm: + tachycardic and + irregularly irregular Heart Sounds: no murmur Vessels: no JVD Extremities: no edema Gastrointestinal (Abdomen): normal bowel sounds, soft, nontender, no hepatosplenomegaly Neurologic: PERRL, EOMI, accommodation nl, no face palsy, no dysarthria Results & Data Vital Signs (Past 12 Hours) Vital Signs Temp Pulse Pulse Pulse Resp BP Pulse Ox 08/03/23 11:29 37.1 C 61 17 136/78 95 08/03/23 10:52 67 08/03/23 08:06 36.7 C 69 19 138/74 93 08/03/23 03:54 36.6 C 70 20 138/71 92 O2 Del Method 08/03/23 11:29 Room Air 08/03/23 10:52 08/03/23 08:06 Room Air 08/03/23 03:54 Room Air Laboratory Results Cardiac Enzymes 08/03/23 Range/Units 08:16 AST 30 (13-39) U/L CBC 08/03/23 Range/Units 08:16 WBC 12.76 H (4.8-10.8) K/ul RBC 3.27 L (4.20-5.40) M/uL Hgb 11.0 L (12.0-16.0) g/dl Hct 32.8 L (37.0-47.0) % Plt Count 118 L (130-400) K/uL Comprehensive Metabolic Panel 08/03/23 Range/Units 08:16 Sodium 138 (136-145) mmol/L Potassium 3.6 (3.5-5.1) mmol/L Chloride 109 H (98-107) mmol/L Carbon Dioxide 22 (21-32) mmol/L BUN 7 (6-23) mg/dl Creatinine 0.52 L (0.6-1.2) mg/dl Glucose 123 H (70-99(Fasting)) mg/dl Calcium 7.8 L (8.6-10.3) mg/dl AST 30 (13-39) U/L ALT 21 (7-52) U/L Alkaline Phosphatase 59 (34-104) U/L Total Protein 5.7 L (6.0-8.3) gm/dl Albumin 3.2 L (3.4-5.0) gm/dl (2) CAD (coronary artery disease) Associated angina: without angina Coronary Disease-Associated Artery/Lesion type: [place] artery [place] vs. transplanted heart: [place] heart Qualified Code(s): I25.10 - Atherosclerotic heart disease of [place] coronary artery without angina pectoris
[2023-08-03] MEDS ORDERED: ENOXAPARIN INJ 40 MG/0.4 ML SYR SQ SCH (14:30)
--- NOTE | 2023-08-03 14:51 | Electrocardiogram Report ---
Test Reason : Blood Pressure : / mmHG Vent. Rate : 069 BPM Atrial Rate : 069 BPM P-R Int : 144 ms QRS Dur : 078 ms QT Int : 418 ms P-R-T Axes : 046 024 065 degrees QTc Int : 447 ms Normal sinus rhythm Low voltage QRS Diffuse Minor Nonspecific T wave abnormality Abnormal ECG When compared with ECG of 02-AUG-2023 10:22, Nonspecific T wave abnormality has replaced inverted T waves in Lateral leads QT has shortened Confirmed by Andrew Doll ([id number]) on 08/03/2023 2:51:10 PM Referred By: REFERRED SELF Confirmed By:Andrew Doll
--- NOTE | 2023-08-03 16:42 | Communication Note ---
Date of Service: August 03, 2023 EKG performed today at 1434 reveals normal sinus rhythm at 69 bpm with diffuse T wave flattening. Compared to the previous tracing performed on 08/02/2023, nonspecific T wave flattening has replaced the inverted T waves in the anterolateral leads. Nonspecific T wave flattening also noted in the inferior leads on the present tracing. High sensitive troponin drawn at 1508 is elevated at 477 PG per mL. I question if her recurrent abdominal discomfort is an anginal equivalent. At this time, will resume unfractionated heparin. Continue aspirin, clopidogrel, metoprolol, rosuvastatin. Most recent repeat blood pressure was 113/73. Start topical nitroglycerin, 1/2 inch every 6. Trend troponin, next due at 2100 and then in AM.
[2023-08-03] MEDS: Heparin IV Adult Wt-Based Standard *NO* INITIAL Bolus Protocol IV SCH ×2 (17:40→17:41)
[2023-08-03] MEDS: NITROGLYCERIN 2% OINTMENT 30GM TUBE EXT SCH ×2 (18:14→22:30)
[2023-08-03] MEDS: AMIODARONE 200 MG TAB PO SCH (18:18)
--- NOTE | 2023-08-03 18:32 | Hospitalist Progress Note ---
Date of Service August 03, 2023 Assessment & Plan (1) Abdominal pain: Plan: 78 yo F w/ type 2 diabetes seems not on medication, hypothyroidism, chronic recurrent sinusitis, history of CAD s/p stents in February 2023, hypertension, paroxysmal supraventricular tachycardia, GERD, vitamin B12 deficiency, epiglottic appendagitis urinary incontinence, generalized osteoarthritis, cervical radiculitis, chronic abdominal pain, progressive vascular leukoencephalopathy, circumscribed scleroderma, s/p cervical fusion surgery, general anxiety disorder, ambulatory dysfunction presents with ongoing nausea vomiting abdominal pain diarrhea and hip pain. Patient was seen at [facility] on with fever and vomiting and burning micturition and found to RSV and was discharged home. She went back to [facility] in July 18 with persistent symptoms and chest x-ray possible pneumonia and her initial lactic acid was 2.6 and repeat is 1.6 and she was discharged on Augmentin and azithromycin. She finished antibiotics yesterday. Again starting developing nausea vomiting severe abdominal pain and hip pain and pain radiating to groins which prompted her to come to the ER today. Hemodynamically stable. Initial lactic acid was 4.3. Repeat lactic is 2.8. Complains of some burning micturition. She was given Rocephin. CT abdomen pelvis is okay. No leukocytosis. Afebrile. States sometimes gets headache. Vision is okay. She has some chronic left-sided neck pain and jaw pain from history of dental infection. No neck stiffness. Still nauseous. Denies any chest pain. No shortness of breath. No cough. No blood in the stools. Hemodynamics okay. Abdominal pain Nausea vomiting diarrhea Going on since time Just finished antibiotics Augmentin and azithromycin for possible pneumonia Initial lactic was 4.2 and repeat is 2.8 Elevated procalcitonin at 8 No obvious source of infection identified No leukocytosis initially on admission - WBC 8.5K, then up at 12.7k, > at 16k (after endoscopy and biopsy) > 12k UA is negative Chest x-ray w/some interstitial thickening, seems chronic Empirically started on Zosyn, which will be continued IV Protonix IV fluids IV pain meds as needed Will follow blood cultures and stool studies GI consulted for further recommendations - per GI - Impression: Patient with intermittent discomfort, based on the history I wonder if she may have symptoms related to cholelithiasis. I would suggest we do further evaluation with upper endoscopy and endoscopic ultrasound to screen for choledocholithiasis, if positive for choledocholithiasis we have consented the patient for ERCP. 08/01/23 - The patient underwent upper endoscopy and endoscopic ultrasound today. She was found to have evidence of esophagitis, gastritis in addition to n umerous gastric polyps. The endoscopic ultrasound was notable for numerous stones within the gallbladder. Recommendations Protonix or omeprazole 40 mg daily Carafate 1 g 4 times daily for 2 weeks Repeat upper endoscopy to assess healing in 3 months Consider general surgery evaluation to determine if patient would benefit from cholecystectomy General surgery consulted - HIDA scan negat. for acute cholecystitis. Plan to follow up w/ general surgery as outpt 08/03 - Pt had severe epigastric burning sensation last evening after drinking eugenia [place]. Now she is feeling ok. Diagnosed w/ gastritis on endoscopy. Switched from PO PPI to IV PPI today. Cardiology concerned about poss. angina symptoms , troponin elevated - iv heparin, nitro paste, repeat trop and ecg. Cardiology following closely. Elevated lactic acidosis CT abdomen pelvis okay As patient has had some headache obtained CT head and some cough obtained CT of the chest CT head negative CT chest - negative Follow repeat labs Antibiotics as above History of CAD s/p stents in February 2023 Continue home aspirin, Plavix, beta-andreia and statin Afib w/ RVR - developed after having endoscopy - received iv metoprolol w/o much improvement in HR - started on IV heparin and amiodarone - cardiology consulted and following closely - converted to sinus rhythm Hypertension On metoprolol, now on amio gtt Will monitor Hyperlipidemia On statin Diabetes Not on medications Follow HbA1c levels Sliding scale Hypothyroidism On Synthyroid TSH 2.5 History of SVT On metoprolol, now on amio gtt DVT prophylaxis iv heparin Disposition Med/tele Full code Admission and Anticipated Discharge Date Admission Date: August 01, 2023 Subjective Pt seen in follow up of abd. pain, n/v , recent URI, current Biofire negative, lactic acid elevated, UA negative Was started on IV zosyn, GI consulted - underwent endoscopy After endoscopy developed Afib w/ RVR - started on amiodarone , heparin , transferred to PCU - cardiology consulted Seen by gen. surgery - HIDA scan negat. for acute cholecystitis Currently sitting up in chair in NAD, reports having epigastric burning sensat ion last evening after drinking e[place], now reports feeling ok. Epigastric pain comes and goes but last evening was quite severe. Pt diagnosed w/ gastritis on endoscopy - switched from PO PPI to IV PPI today. Cardiology also concerned this epigastric burning pain possibly angina. Troponin elevated. iv heparin. cardiology following closely. Pt on telemetry, plan to repeat trop and ecg. Review of Systems Review of Systems: All systems reviewed & are unremarkable except as noted in Subjective Physical Exam Physical Exam: General- WD/WN F in NAD Head- atraumatic Eyes- EOMI, PERRL. Neck- supple, no JVD. Lungs- clear to auscultation no wheezing or crackles. Heart- regular rhythm; no murmur, no gallop. Abdomen- normal bowel sounds, soft, mild diffuse tender more in epigastric region, no distension. Extremities- no pretibial edema, no erythema seen Neuro- alert, oriented x 3; PERRL, no facial palsy; no dysarthria; moves extremities. Skin- warm & dry Results & Data Results & Data Vital Signs (Past 12 Hours) Vital Signs Temp Pulse Pulse Resp BP Pulse Ox O2 Del Method 08/03/23 17:36 67 08/03/23 16:34 36.5 C 89 18 113/73 94 Room Air 08/03/23 11:29 37.1 C 61 17 136/78 95 Room Air 08/03/23 10:52 67 08/03/23 08:06 36.7 C 69 19 138/74 93 Room Air Laboratory Results 08/03/23 08/03/23 08/03/23 Range/Units 18:12 17:01 15:08 WBC Pending (4.8-10.8) K/ul RBC Pending (4.20-5.40) M/uL Hgb Pending (12.0-16.0) g/dl Hct Pending (37.0-47.0) % MCV Pending (80.0-100.0) fL MCH Pending (25.0-34.0) pg MCHC Pending (32.0-36.0) g/dL RDW Std Deviation (36.4-46.3) fL RDW Coeff of Ronit (11.5-14.5) % Plt Count Pending (130-400) K/uL MPV (9.4-12.4) fL PT Pending INR Pending APTT Pending PTT Ratio Pending Heparin Anti-Xa, Unfract (0.3-0.7) IU/ml Sodium (136-145) mmol/L Potassium (3.5-5.1) mmol/L Chloride (98-107) mmol/L Carbon Dioxide (21-32) mmol/L Anion Gap (3-11) BUN (6-23) mg/dl Creatinine (0.6-1.2) mg/dl Est Cr Clr Drug Dosing ml/min Est GFR ( Amer) ml/min Est GFR (Non-Af Amer) ml/min BUN/Creatinine Ratio (10-20) Glucose (70-99(Fasting)) mg/dl POC Glucose 111 H (70-99) mg/dl Calcium (8.6-10.3) mg/dl Phosphorus (2.5-4.9) mg/dl Magnesium (1.7-2.4) mg/dl Total Bilirubin (0.2-1.0) mg/dl AST (13-39) U/L ALT (7-52) U/L Alkaline Phosphatase (34-104) U/L Troponin I High Sens 477.4 H* (0-14) pg/ml Total Protein (6.0-8.3) gm/dl Albumin (3.4-5.0) gm/dl Globulin (2.5-4.0) gm/dl Albumin/Globulin Ratio (0.9-2) 08/03/23 08/03/23 08/03/23 Range/Units 12:00 08:53 08:16 WBC 12.76 H (4.8-10.8) K/ul RBC 3.27 L (4.20-5.40) M/uL Hgb 11.0 L (12.0-16.0) g/dl Hct 32.8 L (37.0-47.0) % MCV 100.3 H (80.0-100.0) fL MCH 33.6 (25.0-34.0) pg MCHC 33.5 (32.0-36.0) g/dL RDW Std Deviation 48.3 H (36.4-46.3) fL RDW Coeff of Ronit 13.2 (11.5-14.5) % Plt Count 118 L (130-400) K/uL MPV 11.2 (9.4-12.4) fL PT INR APTT PTT Ratio Heparin Anti-Xa, Unfract < 0.10 L (0.3-0.7) IU/ml Sodium 138 (136-145) mmol/L Potassium 3.6 (3.5-5.1) mmol/L Chloride 109 H (98-107) mmol/L Carbon Dioxide 22 (21-32) mmol/L Anion Gap 7 (3-11) BUN 7 (6-23) mg/dl Creatinine 0.52 L (0.6-1.2) mg/dl Est Cr Clr Drug Dosing 90.8 ml/min Est GFR ( Amer) 107.6 ml/min Est GFR (Non-Af Amer) 92.8 ml/min BUN/Creatinine Ratio 13.5 (10-20) Glucose 123 H (70-99(Fasting)) mg/dl POC Glucose 105 H 172 H (70-99) mg/dl Calcium 7.8 L (8.6-10.3) mg/dl Phosphorus 2.2 L (2.5-4.9) mg/dl Magnesium 1.8 (1.7-2.4) mg/dl Total Bilirubin 0.7 (0.2-1.0) mg/dl AST 30 (13-39) U/L ALT 21 (7-52) U/L Alkaline Phosphatase 59 (34-104) U/L Troponin I High Sens (0-14) pg/ml Total Protein 5.7 L (6.0-8.3) gm/dl Albumin 3.2 L (3.4-5.0) gm/dl Globulin 2.5 (2.5-4.0) gm/dl Albumin/Globulin Ratio 1.3 (0.9-2) Medications Administered Current Inpatient Medications Acetaminophen (Acetaminophen 325 Mg Tab) 650 mg PO Q4H PRN PRN Reason: Pain or Fever Stop: 08/31/23 00:29 Amiodarone HCl (Amiodarone 200 Mg Tab) 200 mg PO BIDM [facility] Stop: 09/02/23 16:59 Last Admin: 08/03/23 18:18 Dose: 200 mg Artificial Tears (Artificial Tears) 1 drops OP QID PRN PRN Reason: .DRY EYES Stop: 08/31/23 00:29 Aspirin (Aspirin 81 Mg Ectab) 81 mg PO DAILY [facility] Stop: 08/31/23 08:59 Last Admin: 08/03/23 08:55 Dose: 81 mg Clopidogrel Bisulfate (Clopidogrel Bisulfate 75 Mg Tab) 75 mg PO DAILY [facility] Stop: 08/31/23 08:59 Last Admin: 08/03/23 08:55 Dose: 75 mg Cyanocobalamin (Cyanocobalamin (B-12) 500 Mcg Tablet) 1,000 mcg PO DAILY [facility] Stop: 08/31/23 08:59 Last Admin: 08/03/23 08:55 Dose: 1,000 mcg Dextrose (Dextrose 50% 50 Ml Syringe) 25 - 50 ml IV UD PRN; Protocol PRN Reason: Hypoglycemia Protocol Stop: 08/31/23 00:29 Fluticasone Propionate (Fluticasone Propionate Na Spr 16 Gm Btl) 2 sprays NA DAILY PRN PRN Reason: Nasal Congestion Stop: 08/31/23 00:29 Glucose (Glucose 40% Gel 15 Gm Tube) 15 - 30 gm PO UD PRN; Protocol PRN Reason: Hypoglycemia Protocol Stop: 08/31/23 00:29 Hydromorphone HCl (Hydromorphone Inj 0.5 Mg/0.5 Ml Syr) 0.5 mg IV Q3H PRN PRN Reason: Pain Stop: 08/15/23 00:29 Last Admin: 08/03/23 01:16 Dose: 0.5 mg Piperacillin Sod/Tazobactam (Sod 4.5 gm/ Dextrose) 100 mls @ 25 mls/hr IV Q8H [facility]; Protocol Stop: 08/11/23 05:59 Last Infusion: 08/03/23 18:18 Dose: Infused Sodium Chloride (Nss) 1,000 mls @ 125 mls/hr IV .Q8H [facility] Stop: 08/31/23 00:29 Last Admin: 08/03/23 14:18 Dose: 125 mls/hr Pantoprazole Sodium 40 mg/ (Syringe) 10 mls @ 5 mls/min IV BID [facility] Stop: 09/02/23 11:29 Last Admin: 08/03/23 12:11 Dose: 5 mls/min Heparin Sodium/Dextrose (Heparin Sodium/Dextrose) 25,000 units in 500 mls @ 22 mls/hr IV .[id number] [facility]; Protocol Stop: 09/02/23 16:59 Insulin Aspart (Insulin Aspart Per Unit Charge) 0 units SC ACHS [facility] Stop: 08/31/23 00:29 Last Admin: 08/03/23 17:29 Dose: Not Given Levothyroxine Sodium (Levothyroxine Sodium 100 Mcg Tablet) 100 mcg PO DAILYBB [facility] Stop: 08/31/23 06:29 Last Admin: 08/03/23 05:55 Dose: 100 mcg Metoprolol Succinate (Metoprolol Succ 25mg Ext Rel Tab) 25 mg PO BID [facility] Stop: 09/02/23 20:59 Miscellaneous (Carbohydrates For Hypoglycemia ) 15 - 30 gm PO UD PRN PRN Reason: Hypoglycemia Protocol Stop: 08/31/23 00:29 Multivitamins (Multivitamin Tab) 1 tab PO DAILY [facility] Stop: 08/31/23 08:59 Last Admin: 08/03/23 08:54 Dose: 1 tab Nitroglycerin (Nitroglycerin Sl 0.4 Mg/Tab Tab) 0.4 mg SL Q5M PRN PRN Reason: Chest Pain Stop: 08/31/23 00:29 Nitroglycerin (Nitroglycerin 2% Ointment 30gm Tube) 0.5 inch EXT Q6H [facility] Stop: 09/02/23 16:59 Last Admin: 08/03/23 18:14 Dose: 0.5 inch Ondansetron HCl (Ondansetron Inj 2 Mg/Ml 2 Ml Vial) 4 mg IV Q6H PRN PRN Reason: Nausea Stop: 08/31/23 00:29 Pantoprazole Sodium (Pantoprazole 40 Mg Tab) 40 mg PO QAM [facility] Stop: 08/31/23 11:44 Last Admin: 08/03/23 08:55 Dose: 40 mg Potassium Chloride (Potassium Chloride 10 Meq Tabcr) 10 meq PO DAILY [facility] Stop: 08/31/23 08:59 Last Admin: 08/03/23 09:03 Dose: 10 meq Rosuvastatin Calcium (Rosuvastatin Calcium 20 Mg Tab) 20 mg PO DAILY [facility] Stop: 08/31/23 08:59 Last Admin: 08/03/23 08:55 Dose: 20 mg Sucralfate (Sucralfate 1 Gm/10 Ml Udc) 1 gm PO QID [facility] Stop: 08/31/23 12:59 Last Admin: 08/03/23 18:14 Dose: 1 gm
[2023-08-03 18:33] LABS: Basophils # (auto) 0.05 K/uL (0.00-0.20); Basophils % (auto) 0.4 %; Eosinophils % (auto) 1.8 %; Hematocrit (blood only) 33.5 % (37.0-47.0); Hemoglobin 11.2 g/dl (12.0-16.0); Immature Granulocytes # (auto) 0.13 K/uL (0.01-0.20); Immature Granulocytes % (auto) 1.1 %; Lymphocytes # (auto) 2.87 K/uL (1.20-3.40); Lymphocytes % (auto) 25.2 %; Mean Corpuscular Hemoglobin 33.4 pg (25.0-34.0); Mean Corpuscular Hgb Conc 33.4 g/dL (32.0-36.0); Mean Platelet Volume 11.1 fL (9.4-12.4); Monocytes # (auto) 0.95 K/uL (0.11-0.59); Monocytes % (auto) 8.4 %; Neutrophils # (auto) 7.17 K/uL (1.40-6.50); Neutrophils % (auto) 63.1 %; Platelet Count 135 K/uL (130-400); RDW Standard Deviation 47.3 fL (36.4-46.3); Red Blood Count 3.35 M/uL (4.20-5.40); White Blood Count 11.37 K/ul (4.8-10.8)
[2023-08-03 19:01] LABS: INR 1.1 (0.9-1.1); Partial Thromboplastin Time 28 Seconds (21-31); Prothrombin Time 11.7 Seconds (9.0-12.0)
--- NOTE | 2023-08-03 19:02 | Communication Note ---
Date of Service: August 03, 2023 Patient reassessed. She notes feeling better than when I had seen her earlier this afternoon. She describes a chronic bandlike abdominal discomfort that comes and goes and that is not a new finding for her. She states that last evening she had a "burning" sensation in the epigastric region. She states that this symptom is not reminiscent of the symptoms that prompted her to have her heart stent procedure back in February. Heparin is infusing. 0.5 inch topical nitroglycerin in place. Repeat troponin planned for 2099 and again in the morning. EKG ordered for a.m. Echocardiogram performed earlier this admission with no regional wall motion abnormalities. Questions answered to the patient and her 's satisfaction. Genesis Chong , DO
[2023-08-03] MEDS: HEPARIN SODIUM/DEXTROSE 25,000 UNITS/500 ML BAG IV SCH (19:18)
[2023-08-03] MEDS: METOPROLOL SUCC 25MG EXT REL TAB PO SCH (20:39)
[2023-08-04 01:12] LABS: Adenovirus F 40/41 PCR Not Detected (NotDetected); Astrovirus PCR Not Detected (NotDetected); Campylobacter PCR Not Detected (NotDetected); Cryptosporidium PCR Not Detected (NotDetected); Cyclospora cayetanensis PCR Not Detected (NotDetected); Entamoeba histolytica PCR Not Detected (NotDetected); Enteroaggregative E.coli(EAEC) Not Detected (NotDetected); Enteropathogenic E.coli (EPEC) Not Detected (NotDetected); Enterotoxigenic E.coli (ETEC) Not Detected (NotDetected); Giardia lamblia PCR Not Detected (NotDetected); Norovirus GI/GII PCR Not Detected (NotDetected); Plesiomonas shigelloides PCR Not Detected (NotDetected); Rotavirus A PCR Not Detected (NotDetected); Salmonella PCR Not Detected (NotDetected); Sapovirus PCR Not Detected (NotDetected); Shiga-like Toxin E.coli (STEC) Not Detected (NotDetected); Shigella/Enteroinvasive E.coli Not Detected (NotDetected); Vibrio cholerae PCR Not Detected (NotDetected); Vibrio species PCR Not Detected (NotDetected); Yersinia enterocolitica PCR Not Detected (NotDetected)
[2023-08-04 01:50] LABS: Hematocrit (blood only) 31.3 % (37.0-47.0); Hemoglobin 10.7 g/dl (12.0-16.0); Mean Corpuscular Hemoglobin 33.3 pg (25.0-34.0); Mean Corpuscular Hgb Conc 34.2 g/dL (32.0-36.0); Mean Corpuscular Volume 97.5 fL (80.0-100.0); Platelet Count 133 K/uL (130-400); RDW Coefficient of Variation 12.7 % (11.5-14.5); RDW Standard Deviation 45.2 fL (36.4-46.3); Red Blood Count 3.21 M/uL (4.20-5.40); White Blood Count 10.95 K/ul (4.8-10.8)
[2023-08-04 02:04] LABS: Albumin Globulin Ratio 1.3 (0.9-2); Albumin Level 3.2 gm/dl (3.4-5.0); BUN Creatinine Ratio 10.2 (10-20); Bilirubin,Total 0.9 mg/dl (0.2-1.0); Calcium 7.9 mg/dl (8.6-10.3); Creatinine Clr Calc Pharmacy 96.3 ml/min; Est GFR (African American) 109.7 ml/min; Est GFR (Non-African American) 94.6 ml/min; Globulin 2.5 gm/dl (2.5-4.0); Magnesium 1.6 mg/dl (1.7-2.4); Phosphorus 2.3 mg/dl (2.5-4.9); Potassium 3.2 mmol/L (3.5-5.1); Total Protein 5.7 gm/dl (6.0-8.3)
[2023-08-04 02:10] LABS: ANTI-Xa, UFH(UnfractionatedHep 0.46 IU/ml (0.3-0.7)
[2023-08-04] MEDS ORDERED: POTASSIUM CHLORIDE CRTAB 20 MEQ TABCR PO STA (05:05)
[2023-08-04] MEDS: NITROGLYCERIN 2% OINTMENT 30GM TUBE EXT SCH ×2 (05:39→11:58)
[2023-08-04] MEDS: LEVOTHYROXINE SODIUM 100 MCG TABLET PO SCH (05:40)
[2023-08-04] MEDS: PIPERACILLIN/TAZOBACTAM 4.5 GM in DEXTROSE 5% MINI-B 100 ML IV SCH ×3 (05:41→22:09)
[2023-08-04] MEDS: SUCRALFATE 1 GM/10 ML UDC PO SCH ×4 (07:54→20:16)
[2023-08-04] MEDS: AMIODARONE 200 MG TAB PO SCH ×2 (07:55→17:07)
[2023-08-04] MEDS: PANTOprazole 40 MG in SYRINGE 0 ML IV SCH ×2 (09:02→20:17)
[2023-08-04] MEDS: ASPIRIN 81 MG ECTAB PO SCH (09:03)
[2023-08-04] MEDS: CLOPIDOGREL BISULFATE 75 MG TAB PO SCH (09:03)
[2023-08-04] MEDS: ROSUVASTATIN CALCIUM 20 MG TAB PO SCH (09:03)
[2023-08-04] MEDS: MULTIVITAMIN TAB PO SCH (09:03)
[2023-08-04] MEDS: METOPROLOL SUCC 25MG EXT REL TAB PO SCH ×2 (09:03→20:16)
[2023-08-04] MEDS: CYANOCOBALAMIN (B-12) 500 MCG TABLET PO SCH (09:04)
[2023-08-04] MEDS: POTASSIUM CHLORIDE 10 MEQ TABCR PO SCH (09:06)
[2023-08-04] MEDS: INSULIN ASPART PER UNIT CHARGE SC SCH ×4 (09:07→20:18)
[2023-08-04] MEDS ORDERED: POTASSIUM CHLORIDE CRTAB 20 MEQ TABCR PO ONE (09:08)
[2023-08-04] MEDS: MAGNESIUM CHLORIDE W/CALCIUM 64MG DELAYED REL TAB PO SCH ×2 (10:30→20:16)
--- NOTE | 2023-08-04 15:27 | Cardiology Progress Note ---
Date of Service August 04, 2023 Assessment & Plan (1) Atrial fibrillation with rapid ventricular response: (2) CAD (coronary artery disease): (3) Esophagitis: Plan Pt with new onset of atrial fibrillation with rapid ventricular rate at just after 1500 on 08/01/23. Converted to sinus rhythm , 08/01/23 at 20:09 on IV amiodarone and oral metoprolol. Remains in sinus rhythm Patient's [id number] score is 4. Continue IV heparin for additional 24 hours. Consider transition to Eliquis plus Plavix pending review of a.m. labs and CBC. Continue oral amiodarone 200 mg twice daily and metoprolol succinate 25 mg twice daily. Drug-eluting stent implanted to the mid left anterior descending artery February 2023. Treated with dual antiplatelet therapy prior to admission. Hold aspirin currently with plan to transition to Plavix plus Eliquis in a.m. as noted above. Abdominal discomfort has resolved, high-sensitivity troponin trending downward. Elevated troponin likely secondary to demand ischemia in the setting of paroxysmal atrial fibrillation with rapid ventricular response. Discontinue topical nitrates. Continue proton pump inhibitor and Carafate as per gastroenterology. Addendum: Contacted by nursing regarding possible asymmetric lower extremity edema. Venous duplex ordered by internal medicine service. Admission and Anticipated Discharge Date Admission Date: August 01, 2023 Subjective Patient seen examined the bedside. Feeling better from a cardiovascular perspective. Denies any recurrent abdominal discomfort. High-sensitivity troponin trending downward. Telemetry reveals sinus rhythm in the 50s and 60s. Review of Systems Review of Systems: All systems reviewed & are unremarkable except as noted in Subjective Physical Exam Constitutional: well nourished; no acute distress Respiratory: normal respiratory effort; no respiratory distress, no labored breathing and no retractions Auscultation: no crackles, no rales, no rhonchi and no wheezes Cardiovascular: Rate/Rhythm: regular rate and regular rhythm Heart Sounds: normal S1 and normal S2; no murmur Vessels: no JVD and no carotid bruit Extremities: no edema Gastrointestinal (Abdomen): Inspection/Auscultation: abdomen not distended Percussion/Palpation: abdomen soft; abdomen nontender, no guarding and abdomen not rigid Neurologic: CN's II-XI intact bilaterally and moves all extremities Results & Data Vital Signs (Past 12 Hours) Vital Signs Temp Pulse Pulse Resp BP Pulse Ox O2 Del Method 08/04/23 11:22 61 08/04/23 07:37 36.8 C 57 L 18 153/78 H 95 Room Air 08/04/23 03:43 36.7 C 65 20 159/82 H 95 Room Air Laboratory Results Cardiac Enzymes 08/03/23 08/03/23 08/04/23 Range/Units 15:08 20:57 01:24 AST 38 (13-39) U/L Troponin I High Sens 477.4 H* 392.5 H* 295.0 H* D (0-14) pg/ml Coagulation 08/03/23 Range/Units 18:12 PT 11.7 (9.0-12.0) Seconds APTT 28 (21-31) Seconds CBC 08/03/23 08/04/23 Range/Units 18:12 01:24 WBC 11.37 H 10.95 H (4.8-10.8) K/ul RBC 3.35 L 3.21 L (4.20-5.40) M/uL Hgb 11.2 L 10.7 L (12.0-16.0) g/dl Hct 33.5 L 31.3 L (37.0-47.0) % Plt Count 135 133 (130-400) K/uL Neut # (Auto) 7.17 H (1.40-6.50) K/uL Lymph # (Auto) 2.87 (1.20-3.40) K/uL Brule # (Auto) 0.95 H (0.11-0.59) K/uL Eos # (Auto) 0.20 (0.00-0.50) K/uL Baso # (Auto) 0.05 (0.00-0.20) K/uL Comprehensive Metabolic Panel 08/04/23 Range/Units 01:24 Sodium 139 (136-145) mmol/L Potassium 3.2 L (3.5-5.1) mmol/L Chloride 109 H (98-107) mmol/L Carbon Dioxide 22 (21-32) mmol/L BUN 5 L (6-23) mg/dl Creatinine 0.49 L (0.6-1.2) mg/dl Glucose 125 H (70-99(Fasting)) mg/dl Calcium 7.9 L (8.6-10.3) mg/dl AST 38 (13-39) U/L ALT 32 (7-52) U/L Alkaline Phosphatase 67 (34-104) U/L Total Protein 5.7 L (6.0-8.3) gm/dl Albumin 3.2 L (3.4-5.0) gm/dl Intake and Output 08/04/23 08/04/23 08/04/23 06:59 14:59 22:59 Intake Total 1432.05 / 4823.323 193.133 / 193.133 Balance 1432.05 / 4823.323 193.133 / 193.133 Intake: IV 1162.05 / 3643.323 193.133 / 193.133 Heparin Sodium/Dextrose 25,000 168.3 / 168.3 93.133 / 93.133 units In 500 ml @ 1,100 UNITS/ HR 22 mls/hr IV .[id number] [facility] Rx #:[id number] Piperacillin/Tazobactam 4.5 gm 100 / 300 100 / 100 In Dextrose 5% Mini-B 100 ml @ 25 mls/hr IV Q8H [facility] Rx#: [id number] Sodium Chloride 0.9% 1,000 ml @ 893.75 / 2893.75 125 mls/hr IV .Q8H [facility] Rx#: [id number] Oral 270 / 1180 Other: # Unmeasured Voids 4 Weight 78 kg Weight Measurement Method Built in [facility] (2) CAD (coronary artery disease) Associated angina: without angina Coronary Disease-Associated Artery/Lesion type: [place] artery [place] vs. transplanted heart: [place] heart Qualified Code(s): I25.10 - Atherosclerotic heart disease of [place] coronary artery without angina pectoris
--- NOTE | 2023-08-04 16:08 | Hospitalist Progress Note ---
Date of Service August 04, 2023 Assessment & Plan (1) Abdominal pain: Plan: 78 yo F w/ type 2 diabetes seems not on medication, hypothyroidism, chronic recurrent sinusitis, history of CAD s/p stents in February 2023, hypertension, paroxysmal supraventricular tachycardia, GERD, vitamin B12 deficiency, epiglottic appendagitis urinary incontinence, generalized osteoarthritis, cervical radiculitis, chronic abdominal pain, progressive vascular leukoencephalopathy, circumscribed scleroderma, s/p cervical fusion surgery, general anxiety disorder, ambulatory dysfunction presents with ongoing nausea vomiting abdominal pain diarrhea and hip pain. Patient was seen at [facility] on with fever and vomiting and burning micturition and found to RSV and was discharged home. She went back to [facility] in July 18 with persistent symptoms and chest x-ray possible pneumonia and her initial lactic acid was 2.6 and repeat is 1.6 and she was discharged on Augmentin and azithromycin. She finished antibiotics yesterday. Again starting developing nausea vomiting severe abdominal pain and hip pain and pain radiating to groins which prompted her to come to the ER today. Hemodynamically stable. Initial lactic acid was 4.3. Repeat lactic is 2.8. Complains of some burning micturition. She was given Rocephin. CT abdomen pelvis is okay. No leukocytosis. Afebrile. States sometimes gets headache. Vision is okay. She has some chronic left-sided neck pain and jaw pain from history of dental infection. No neck stiffness. Still nauseous. Denies any chest pain. No shortness of breath. No cough. No blood in the stools. Hemodynamics okay. Afib w/ RVR Developed after having endoscopy Converted to sinus Continue amiodarone, metoprolol On IV heparin for anticoagulation Plan to be transition to Eliqu likely tomorrow Appreciate cardiology input Esophagitis/Gastritis Gastric polyps Cholelithiasis Presented with abdominal pain, nausea, vomiting, diarrhea --S/P EGD: Normal upper third of esophagus and middle third of esophagus. LA Grade A esophagitis with no bleeding. Biopsied. Gastric mucosal atrophy. Biopsied. Multiple gastric polyps. Biopsied. Normal examined duodenum. Biopsied. --CT ABD:No acute findings in the abdomen or pelvis. --HIDA:No evidence for cystic duct obstruction. --Liver USD:Cholelithiasis with sonographic evidence of acute cholecystitis. Surgical assessment is advised. There is no intra or extrahepatic biliary ductal dilatation. --Stomach biopsy showed diffuse chronic gastritis with diffuse intestinal metaplasia. Dysplasia and carcinoma are not seen. H. pylori negative. Also noted polypoid foveolar hyperplasia. --GE junction biopsy suggestive of moderate chronic reflux esophagitis --Stool studies negative -- Continue Protonix 40 mg daily Continue Carafate 1 g 4 times a day for 2 weeks Needs repeat endoscopy in 3 months Appreciate GI input Needs follow-up with surgery for possible cholecystectomy as outpatient Advance diet as tolerated Lactic acidosis Fever of unknown origin Recently treated for RSV, possible pneumonia, ?UTI Imaging studies not suggestive of acute cholecystitis CT chest, abdomen not suggestive of any infection BioFire, stool studies negative UA not suggestive of UTI Elevated procalcitonin Blood cultures pending Lactic acidosis resolved with IV fluids Leukocytosis trending down Empirically on Zosyn Transition to p.o. antibiotics likely tomorrow Hypokalemia Hypophosphatemia Hypomagnesemia Hypocalcemia Monitor and replete electrolytes as needed Lower extremity edema Check Doppler studies to rule out DVT Already on IV heparin as above H/O of CAD s/p stents in February 2023 Continue Plavix, beta-andreia and statin Hypertension Hyperlipidemia Levothyroxine Continue current medications Monitor BP DM II Update HbA1c Continue insulin while hospitalized Monitor BGs H/O SVT Continue metoprolol, amiodarone DVT Px: on IV Heparin Code Status Full code Admission and Anticipated Discharge Date Admission Date: August 01, 2023 Subjective Patient is seen and examined at bedside Abdominal pain, diarrhea resolved Feels better today Tolerating current diet Remains in sinus On IV heparin Afebrile today Discussed with patient's family at bedside Denies any chest pain, dyspnea, dizziness Eager to get discharged Review of Systems Review of Systems: All systems reviewed & are unremarkable except as noted in Subjective Physical Exam Physical Exam: Physical Exam: Vitals signs as noted above General Appearance:Obese, no apparent distress Head: normocephalic, Atraumatic Eyes: normal inspection, EOMI Neck: supple, Trachea midline Respiratory/Chest: Normal breath sounds, CTA, No accessory muscle use Cardiovascular: S1, S2, No murmur Abdomen/GI:Soft, Non tender, Bowel sounds present Extremities/Musculoskeletal:normal inspection, 1+ Non pitting edema Neurologic/Psych:AAOX3, grossly no focal neurological deficits Skin: normal color, warm Results & Data Results & Data Vital Signs (Past 12 Hours) Vital Signs Temp Pulse Pulse Resp BP Pulse Ox O2 Del Method 08/04/23 16:03 36.7 C 63 18 145/74 H 96 Room Air 08/04/23 15:30 78 08/04/23 12:30 36.6 C 66 18 135/82 97 Room Air 08/04/23 11:22 61 08/04/23 07:37 36.8 C 57 L 18 153/78 H 95 Room Air Laboratory Results Short CBC 08/03/23 08/04/23 Range/Units 18:12 01:24 WBC 11.37 H 10.95 H (4.8-10.8) K/ul Hgb 11.2 L 10.7 L (12.0-16.0) g/dl Hct 33.5 L 31.3 L (37.0-47.0) % Plt Count 135 133 (130-400) K/uL BMP 08/04/23 01:24 Sodium 139 Potassium 3.2 L Chloride 109 H Carbon Dioxide 22 BUN 5 L Creatinine 0.49 L Glucose 125 H Calcium 7.9 L Liver Function 08/04/23 Range/Units 01:24 Total Bilirubin 0.9 (0.2-1.0) mg/dl AST 38 (13-39) U/L ALT 32 (7-52) U/L Alkaline Phosphatase 67 (34-104) U/L Albumin 3.2 L (3.4-5.0) gm/dl
[2023-08-04] MEDS: HEPARIN SODIUM/DEXTROSE 25,000 UNITS/500 ML BAG IV SCH (17:05)
--- NOTE | 2023-08-04 17:05 | Ultrasound Report ---
ULTRASOUND BILATERAL LOWER EXTREMITY VENOUS CLINICAL HISTORY: Lower extremity edema. COMPARISON STUDY: No priors. TECHNIQUE: Real-time, grayscale, and color Doppler sonography of the deep veins of the right and left lower extremity was performed from the inguinal crease to the calf. Compression and augmentation wer e utilized. FINDINGS: There is no sonographic evidence of deep venous thrombosis identified in the right or left lower extremity. The common femoral, superficial femoral, and popliteal veins are patent and normally compressible bilaterally. The greater saphenous vein and the profunda femoris vein at the junction w ith the common femoral vein are clear in both legs. The visualized calf veins are patent bilaterally. IMPRESSION: There is no sonographic evidence of deep venous thrombosis identified in the right or lef t lower extremity. ACT 112: Negative or not required by law. Electronically signed by: Lakhwinder Wang M.D. 08/04/2023 5:04 PM
[2023-08-04] MEDS: ADVANCED PROBIOTIC 1250 MG CAPSULE PO SCH (17:06)
[2023-08-05 04:59] LABS: Hematocrit (blood only) 31.9 % (37.0-47.0); Hemoglobin 11.1 g/dl (12.0-16.0); Mean Corpuscular Hemoglobin 33.5 pg (25.0-34.0); Mean Corpuscular Hgb Conc 34.8 g/dL (32.0-36.0); Mean Corpuscular Volume 96.4 fL (80.0-100.0); Mean Platelet Volume 11.2 fL (9.4-12.4); Platelet Count 151 K/uL (130-400); RDW Coefficient of Variation 12.6 % (11.5-14.5); RDW Standard Deviation 43.6 fL (36.4-46.3); Red Blood Count 3.31 M/uL (4.20-5.40); White Blood Count 8.58 K/ul (4.8-10.8)
[2023-08-05 05:19] LABS: ANTI-Xa, UFH(UnfractionatedHep 0.45 IU/ml (0.3-0.7)
[2023-08-05 05:20] LABS: Albumin Globulin Ratio 1.2 (0.9-2); Albumin Level 3.2 gm/dl (3.4-5.0); BUN Creatinine Ratio 8.5 (10-20); Bilirubin,Total 0.6 mg/dl (0.2-1.0); Calcium 8.4 mg/dl (8.6-10.3); Creatinine Clr Calc Pharmacy 80.2 ml/min; Est GFR (African American) 103.2 ml/min; Globulin 2.7 gm/dl (2.5-4.0); Magnesium 1.8 mg/dl (1.7-2.4); Phosphorus 3.5 mg/dl (2.5-4.9); Potassium 3.3 mmol/L (3.5-5.1); Total Protein 5.9 gm/dl (6.0-8.3)
[2023-08-05] MEDS: LEVOTHYROXINE SODIUM 100 MCG TABLET PO SCH (06:23)
[2023-08-05] MEDS: PIPERACILLIN/TAZOBACTAM 4.5 GM in DEXTROSE 5% MINI-B 100 ML IV SCH (06:24)
[2023-08-05 07:10] LABS: Estimated Average Glucose 137 mg/dl; Hemoglobin A1C 6.4 % (4.5-5.6)
[2023-08-05] MEDS: METOPROLOL SUCC 25MG EXT REL TAB PO SCH (08:22)
[2023-08-05] MEDS: MULTIVITAMIN TAB PO SCH (08:23)
[2023-08-05] MEDS: ROSUVASTATIN CALCIUM 20 MG TAB PO SCH (08:24)
[2023-08-05] MEDS: CYANOCOBALAMIN (B-12) 500 MCG TABLET PO SCH (08:24)
[2023-08-05] MEDS: CLOPIDOGREL BISULFATE 75 MG TAB PO SCH (08:25)
[2023-08-05] MEDS: AMIODARONE 200 MG TAB PO SCH (08:25)
[2023-08-05] MEDS: SUCRALFATE 1 GM/10 ML UDC PO SCH ×2 (08:25→12:58)
[2023-08-05] MEDS: ADVANCED PROBIOTIC 1250 MG CAPSULE PO SCH (08:41)
[2023-08-05] MEDS: MAGNESIUM CHLORIDE W/CALCIUM 64MG DELAYED REL TAB PO SCH (08:41)
[2023-08-05] MEDS: INSULIN ASPART PER UNIT CHARGE SC SCH ×2 (08:43→12:57)
[2023-08-05] MEDS ORDERED: POTASSIUM CHLORIDE CRTAB 20 MEQ TABCR PO ONE (09:47)
[2023-08-05] MEDS: PANTOprazole 40 MG in SYRINGE 0 ML IV SCH (10:14)
[2023-08-05] MEDS: POTASSIUM CHLORIDE 10 MEQ TABCR PO SCH (10:14)
[2023-08-05] MEDS ORDERED: APIXABAN 5 MG TABLET PO SCH (13:40)
--- NOTE | 2023-08-05 13:40 | Hospitalist Progress Note ---
Date of Service August 05, 2023 Assessment & Plan (1) Abdominal pain: Plan: 78 yo F w/ type 2 diabetes seems not on medication, hypothyroidism, chronic recurrent sinusitis, history of CAD s/p stents in February 2023, hypertension, paroxysmal supraventricular tachycardia, GERD, vitamin B12 deficiency, epiglottic appendagitis urinary incontinence, generalized osteoarthritis, cervical radiculitis, chronic abdominal pain, progressive vascular leukoencephalopathy, circumscribed scleroderma, s/p cervical fusion surgery, general anxiety disorder, ambulatory dysfunction presents with ongoing nausea vomiting abdominal pain diarrhea and hip pain. Patient was seen at [facility] on with fever and vomiting and burning micturition and found to RSV and was discharged home. She went back to [facility] in July 18 with persistent symptoms and chest x-ray possible pneumonia and her initial lactic acid was 2.6 and repeat is 1.6 and she was discharged on Augmentin and azithromycin. She finished antibiotics yesterday. Again starting developing nausea vomiting severe abdominal pain and hip pain and pain radiating to groins which prompted her to come to the ER today. Hemodynamically stable. Initial lactic acid was 4.3. Repeat lactic is 2.8. Complains of some burning micturition. She was given Rocephin. CT abdomen pelvis is okay. No leukocytosis. Afebrile. States sometimes gets headache. Vision is okay. She has some chronic left-sided neck pain and jaw pain from history of dental infection. No neck stiffness. Still nauseous. Denies any chest pain. No shortness of breath. No cough. No blood in the stools. Hemodynamics okay. Afib w/ RVR Developed after having endoscopy Converted to sinus Continue amiodarone, metoprolol On IV heparin for anticoagulation>> transition to Eliquis Discussed with battery loader on-call: Okay to start on Eliquis Appreciate cardiology input Needs follow-up with cardiology on discharge Esophagitis/Gastritis Gastric polyps Cholelithiasis Presented with abdominal pain, nausea, vomiting, diarrhea --S/P EGD: Normal upper third of esophagus and middle third of esophagus. LA Grade A esophagitis with no bleeding. Biopsied. Gastric mucosal atrophy. Biopsied. Multiple gastric polyps. Biopsied. Normal examined duodenum. Biopsied. --CT ABD:No acute findings in the abdomen or pelvis. --HIDA:No evidence for cystic duct obstruction. --Liver USD:Cholelithiasis with sonographic evidence of acute cholecystitis. Surgical assessment is advised. There is no intra or extrahepatic biliary ductal dilatation. --Stomach biopsy showed diffuse chronic gastritis with diffuse intestinal metaplasia. Dysplasia and carcinoma are not seen. H. pylori negative. Also noted polypoid foveolar hyperplasia. --GE junction biopsy suggestive of moderate chronic reflux esophagitis --Stool studies negative -- Continue Protonix 40 mg daily Continue Carafate 1 g 4 times a day for 2 weeks Needs repeat endoscopy in 3 months Appreciate GI input Needs follow-up with surgery for possible cholecystectomy as outpatient Tolerated regular diet Lactic acidosis Fever of unknown origin Recently treated for RSV, possible pneumonia, ?UTI Imaging studies not suggestive of acute cholecystitis CT chest, abdomen not suggestive of any infection BioFire, stool studies negative UA not suggestive of UTI Elevated procalcitonin Blood cultures: Negative to date Lactic acidosis resolved with IV fluids Leukocytosis resolved Empirically on Zosyn>> transition to Augmentin on discharge to complete 10 day course Hypokalemia Hypophosphatemia Hypomagnesemia Hypocalcemia Monitor and replete electrolytes as needed Lower extremity edema Venous Doppler:There is no sonographic evidence of deep venous thrombosis identified in the right or left lower extremity. Lower extremity edema improved H/O of CAD s/p stents in February 2023 Continue Plavix, beta-andreia and statin Hypertension Hyperlipidemia Levothyroxine Continue current medications Monitor BP DM II HbA1c 6.4 Continue insulin while hospitalized Monitor BGs H/O SVT Continue metoprolol, amiodarone DVT Px: on IV Heparin>>Transition to Eliquis Code Status Full code Disposition Home Admission and Anticipated Discharge Date Admission Date: August 01, 2023 Subjective Patient is seen and examined at bedside States feeling well today Tolerating current diet Denies any chest pain, dyspnea, dizziness, nausea, vomiting, abdominal pain Discussed with cardiology today Also discussed with GI today Plan to discharge home Review of Systems Review of Systems: All systems reviewed & are unremarkable except as noted in Subjective Physical Exam Physical Exam: Physical Exam: Vitals signs as noted above General Appearance:Obese, no apparent distress Head: normocephalic, Atraumatic Eyes: normal inspection, EOMI Neck: supple, Trachea midline Respiratory/Chest: Normal breath sounds, CTA, No accessory muscle use Cardiovascular: S1, S2, No murmur Abdomen/GI:Soft, Non tender, Bowel sounds present Extremities/Musculoskeletal:normal inspection, 1+ Non pitting edema Neurologic/Psych:AAOX3, grossly no focal neurological deficits Skin: normal color, warm Results & Data Results & Data Vital Signs (Past 12 Hours) Vital Signs Temp Pulse Resp BP Pulse Ox O2 Del Method 08/05/23 11:16 36.8 C 65 18 162/72 H 95 Room Air 08/05/23 07:08 36.6 C 60 19 161/84 H 96 Room Air 08/05/23 03:30 36.6 C 70 18 162/78 H 95 Room Air Laboratory Results Short CBC 08/05/23 Range/Units 04:10 WBC 8.58 (4.8-10.8) K/ul Hgb 11.1 L (12.0-16.0) g/dl Hct 31.9 L (37.0-47.0) % Plt Count 151 (130-400) K/uL BMP 08/05/23 04:10 Sodium 140 Potassium 3.3 L Chloride 108 H Carbon Dioxide 24 BUN 5 L Creatinine 0.59 L Glucose 114 H Calcium 8.4 L Liver Function 08/05/23 Range/Units 04:10 Total Bilirubin 0.6 (0.2-1.0) mg/dl AST 34 (13-39) U/L ALT 34 (7-52) U/L Alkaline Phosphatase 70 (34-104) U/L Albumin 3.2 L (3.4-5.0) gm/dl
--- NOTE | 2023-08-05 13:53 | Discharge Summary ---
Date of Service August 05, 2023 Admission HPI Per Admitting Provider 78-year-old female past medical history significant for type 2 diabetes seems not on medication, hypothyroidism, chronic recurrent sinusitis, history of CAD s/p stents in February 2023, hypertension, paroxysmal supraventricular tachycardia, GERD, vitamin B12 deficiency, epiglottic appendagitis urinary incontinence, generalized osteoarthritis, cervical radiculitis, chronic abdominal pain, progressive vascular leukoencephalopathy, circumscribed scleroderma, s/p cervical fusion surgery, general anxiety disorder, ambulatory dysfunction presents with ongoing nausea vomiting abdominal pain diarrhea and hip pain. Patient was seen at [facility] on with fever and vomiting and burning micturition and found to RSV and was discharged home. She went back to [facility] in July 18 with persistent symptoms and chest x-ray possible pneumonia and her initial lactic acid was 2.6 and repeat is 1.6 and she was discharged on Augmentin and azithromycin. She finished antibiotics yesterday. Again starting developing nausea vomiting severe abdominal pain and hip pain and pain radiating to groins which prompted her to come to the ER today. Hemodynamically stable. Initial lactic acid was 4.3. Repeat lactic is 2.8. Complains of some burning micturition. She was given Rocephin. CT abdomen pelvis is okay. No leukocytosis. Afebrile. States sometimes gets headache. Vision is okay. She has some chronic left-sided neck pain and jaw pain from history of dental infection. No neck stiffness. Still nauseous. Denies any chest pain. No shortness of breath. No cough. No blood in the stools. Hemodynamics okay. Daughter is in the room. Past medical history.. As mentioned above Past surgical history. Spine surgery. Biopsy of soft tissue shoulder. Carpal tunnel surgery. Colonoscopy. Cardiac cath. EGD. Ligation oviducts. Excision of bilateral upper lids. Partial removal of colon. Appendectomy. Removal of pelvic structures. Tonsillectomy. Social history. . No smoking. No alcohol use. No drug use. Family history. Mother had cancer. Father had diabetes. Heart disorder. Endocrine disorder. Admission Exam Per Admitting Provider General- Not in distress Head- atraumatic Eyes- PERRL. ENT- oropharynx clear Neck- supple, no JVD. Lungs- clear to auscultation no wheezing or crackles. Heart- regular rhythm; no murmur, no gallop. Abdomen- normal bowel sounds, soft, mild diffuse tender more in epigastric region, no distension. Extremities- no pretibial edema, no erythema seen Neuro- alert, oriented x 3; PERRL, no facial palsy; no dysarthria; moves extremities. Skin- warm & dry Principal Diagnosis Esophagitis/Gastritis Gastric polyps Cholelithiasis Atrial fibrillation with rapid ventricular response Discharge Data Allergies Allergy/AdvReac Type Severity Reaction Status Date / Time gabapentin AdvReac EYES BLEED Verified 07/31/23 19:43 Consultations 07/31/23 20:59 ED Decision to Admit Stat 08/01/23 08:00 Consult Gastroenterology Routine 08/01/23 11:40 Consult General Surgery Routine 08/01/23 19:05 Consult Cardiology Routine Procedures Performed Operation Date: 08/01/23 09:55 Actual Procedures p Upper EUS - Hernan Ross, DO p EGD - Hernan Ross, DO Laboratory Results WBC 8.58 K/ul (4.8-10.8) 08/05/23 04:10 RBC 3.31 M/uL (4.20-5.40) L 08/05/23 04:10 Hgb 11.1 g/dl (12.0-16.0) L 08/05/23 04:10 Hct 31.9 % (37.0-47.0) L 08/05/23 04:10 MCV 96.4 fL (80.0-100.0) 08/05/23 04:10 MCH 33.5 pg (25.0-34.0) 08/05/23 04:10 MCHC 34.8 g/dL (32.0-36.0) 08/05/23 04:10 RDW Std Deviation 43.6 fL (36.4-46.3) 08/05/23 04:10 RDW Coeff of Ornit 12.6 % (11.5-14.5) 08/05/23 04:10 Plt Count 151 K/uL (130-400) 08/05/23 04:10 MPV 11.2 fL (9.4-12.4) 08/05/23 04:10 Immature Gran % (Auto) 1.1 % 08/03/23 18:12 Neut % (Auto) 63.1 % 08/03/23 18:12 Lymph % (Auto) 25.2 % 08/03/23 18:12 [place] % (Auto) 8.4 % 08/03/23 18:12 Eos % (Auto) 1.8 % 08/03/23 18:12 Baso % (Auto) 0.4 % 08/03/23 18:12 Neut # (Auto) 7.17 K/uL (1.40-6.50) H 08/03/23 18:12 Lymph # (Auto) 2.87 K/uL (1.20-3.40) 08/03/23 18:12 [place] # (Auto) 0.95 K/uL (0.11-0.59) H 08/03/23 18:12 Eos # (Auto) 0.20 K/uL (0.00-0.50) 08/03/23 18: Baso # (Auto) 0.05 K/uL (0.00-0.20) 08/03/23 18: Immature Gran # (Auto) 0.13 K/uL (0.01-0.20) 08/03/23 18:12 PT 11.7 Seconds (9.0-12.0) 08/03/23 18:12 INR 1.1 (0.9-1.1) 08/03/23 18:12 APTT 28 Seconds (21-31) 08/03/23 18:12 PTT Ratio 1.0 08/03/23 18:12 Heparin Anti-Xa, Unfract 0.45 IU/ml (0.3-0.7) 08/05/23 04:10 Sodium 140 mmol/L (136-145) 08/05/23 04:10 Potassium 3.3 mmol/L (3.5-5.1) L 08/05/23 04:10 Chloride 108 mmol/L (98-107) H 08/05/23 04:10 Carbon Dioxide 24 mmol/L (21-32) 08/05/23 04:10 Anion Gap 8 (3-11) 08/05/23 04:10 BUN 5 mg/dl (6-23) L 08/05/23 04:10 Creatinine 0.59 mg/dl (0.6-1.2) L 08/05/23 04:10 Est Cr Clr Drug Dosing 80.2 ml/min 08/05/23 04:10 Est GFR ( Amer) 103.2 ml/min 08/05/23 04:10 Est GFR (Non-Af Amer) 89.0 ml/min 08/05/23 04:10 BUN/Creatinine Ratio 8.5 (10-20) L 08/05/23 04:10 Glucose 114 mg/dl (70-99(Fasting)) H 08/05/23 04:10 POC Glucose 86 mg/dl (70-99) 08/05/23 11:59 Estimat Average Glucose 137 mg/dl 08/05/23 04:10 Hemoglobin A1c 6.4 % (4.5-5.6) H 08/05/23 04:10 Lactate 1.0 mmol/L (0.4-2.0) 08/04/23 01:24 Calcium 8.4 mg/dl (8.6-10.3) L 08/05/23 04:10 Phosphorus 3.5 mg/dl (2.5-4.9) D 08/05/23 04:10 Magnesium 1.8 mg/dl (1.7-2.4) 08/05/23 04:10 Total Bilirubin 0.6 mg/dl (0.2-1.0) 08/05/23 04:10 Direct Bilirubin 0.3 mg/dl (0-0.2) H 08/01/23 04:12 AST 34 U/L (13-39) 08/05/23 04:10 ALT 34 U/L (7-52) 08/05/23 04:10 Alkaline Phosphatase 70 U/L (34-104) 08/05/23 04:10 Troponin I High Sens 295.0 pg/ml (0-14) H* D 08/04/23 01:24 Total Protein 5.9 gm/dl (6.0-8.3) L 08/05/23 04:10 Albumin 3.2 gm/dl (3.4-5.0) L 08/05/23 04:10 Globulin 2.7 gm/dl (2.5-4.0) 08/05/23 04:10 Albumin/Globulin Ratio 1.2 (0.9-2) 08/05/23 04:10 Procalcitonin 8.42 ng/ml (0-0.5) H 07/31/23 18:36 TSH 2.507 uIu/ml (0.300-4.500) 07/31/23 18:36 Urine Color Dark Yellow 07/31/23 18:36 Urine Appearance Clear (Clear) 07/31/23 18:36 Urine pH 5.0 (4.5-7.5) 07/31/23 18:36 Ur Specific [place] 1.013 (1.000-1.030) 07/31/23 18:36 Urine Protein Trace (Negative) H 07/31/23 18:36 Urine Glucose (UA) Negative (Negative) 07/31/23 18:36 Urine Ketones Negative (Negative) 07/31/23 18:36 Urine Blood Negative (Negative) 07/31/23 18:36 Urine Nitrite Negative (Negative) 07/31/23 18:36 Urine Bilirubin Negative (Negative) 07/31/23 18:36 Urine Urobilinogen Negative (Negative) 07/31/23 18:36 Ur Leukocyte Esterase Trace (Negative) H 07/31/23 18:36 Urine WBC (Auto) 1-5 /hpf (0-5) 07/31/23 18:36 Urine RBC (Auto) 0-4 /hpf (0-4) 07/31/23 18:36 U Hyaline Cast (Auto) 1-5 /lpf (0-5) 07/31/23 18:36 U Epithel Cells (Auto) >30 /lpf (0-5) H 07/31/23 18:36 Urine Bacteria (Auto) Negative (Negative) 07/31/23 18:36 Stl C. cayetanensis PCR Not Detected (NotDetected) 08/03/23 23:40 Stool Rotavirus A PCR Not Detected (NotDetected) 08/03/23 23:40 Stl Adenov F 41 PCR Not Detected (NotDetected) 08/03/23 23:40 Stool Astrovirus (PCR) Not Detected (NotDetected) 08/03/23 23:40 Stool Campylobacter PCR Not Detected (NotDetected) 08/03/23 23:40 Stl C. diff Tox B Gene Negative Cdiff Gene (Neg) 08/03/23 18:20 Stool Cryptosporidium PCR Not Detected (NotDetected) 08/03/23 23:40 Stl E.coli Shiga Tox PCR Not Detected (NotDetected) 08/03/23 23:40 Stool E coli O157 PCR Cancelled 08/03/23 18:20 Stl Enterotoxigenic E PCR Not Detected (NotDetected) 08/03/23 23:40 Stool EPEC (PCR) Not Detected (NotDetected) 08/03/23 23:40 Stool EAEC (PCR) Not Detected (NotDetected) 08/03/23 23:40 Stl E. histolytica PCR Not Detected (NotDetected) 08/03/23 23:40 Stool Giardia Lamblia PCR Not Detected (NotDetected) 08/03/23 23:40 Stool Salmonella PCR Not Detected (NotDetected) 08/03/23 23:40 Stool Sapovirus (PCR) Not Detected (NotDetected) 08/03/23 23:40 Stl P. shigelloides PCR Not Detected (NotDetected) 08/03/23 23:40 Stl Shigella/EIEC PCR Not Detected (NotDetected) 08/03/23 23:40 St Y.enterocolitica PCR Not Detected (NotDetected) 08/03/23 23:40 Stool Vibrio (PCR) Not Detected (NotDetected) 08/03/23 23:40 Stl Vibrio cholerae PCR Not Detected (NotDetected) 08/03/23 23:40 Stl Norovirus GI/GII PCR Not Detected (NotDetected) 08/03/23 23:40 Adenovirus (PCR) Not Detected (NotDetected) 07/31/23 18:36 B. pertussis DNA (PCR) Not Detected (NotDetected) 07/31/23 18:36 B.parapertussis DNA PCR Not Detected (NotDetected) 07/31/23 18:36 C. pneumoniae DNA (PCR) Not Detected (NotDetected) 07/31/23 18:36 Coronavirus OC43 (PCR) Not Detected (NotDetected) 07/31/23 18:36 Coronavirus HKU1 (PCR) Not Detected (NotDetected) 07/31/23 18:36 Coronavirus 229E (PCR) Not Detected (NotDetected) 07/31/23 18:36 SARS-CoV-2 (PCR) Not Detected (NotDetected) 07/31/23 18:36 Coronavirus NL63 (PCR) Not Detected (NotDetected) 07/31/23 18:36 Human Metapneumovir PCR Not Detected (NotDetected) 07/31/23 18:36 Influenza Type A (PCR) Not Detected (NotDetected) 07/31/23 18:36 Influenza Type B (PCR) Not Detected (NotDetected) 07/31/23 18:36 M. pneumoniae (PCR) Not Detected (NotDetected) 07/31/23 18:36 Parainfluenza 1 (PCR) Not Detected (NotDetected) 07/31/23 18:36 Parainfluenza 2 (PCR) Not Detected (NotDetected) 07/31/23 18:36 Parainfluenza 3 (PCR) Not Detected (NotDetected) 07/31/23 18:36 Parainfluenza 4 (PCR) Not Detected (NotDetected) 07/31/23 18:36 RSV (PCR) Not Detected (NotDetected) 07/31/23 18:36 Entero/Rhino (PCR) Not Detected (NotDetected) 07/31/23 18:36 Impressions Chest X-Ray 07/31/23 18:21 XR chest 1V portable HISTORY: weakness COMPARISON: None. FINDINGS: No pneumothorax. No pleural effusions. Mild interstitial thickening. This is likely chronic. The heart is mildly enlarged. No evidence for pulmonary edema. No acute fractures. Cervical spinal fusion hardware is noted. IMPRESSION: Cardiomegaly and mild interstitial thickening. This is likely chronic. ACT 112: Negative or not required by law. Electronically signed by: Javier Gonzalez M.D. 08/01/2023 7:39 AM Abdomen/Pelvis CT 07/31/23 21:13 Exam(s): CT ABDOMEN + PELVIS With Contrast IV Amt: 84 ml optiray 320 EXAM: CT Abdomen and Pelvis With Intravenous Contrast CLINICAL HISTORY: Reason for exam: L flank pain. TECHNIQUE: Axial computed tomography images of the abdomen and pelvis with intravenous contrast. Automated exposure control was utilized for the study. A dose lowering technique was utilized adhering to the principles of ALARA. CONTRAST: Patient received 84 ml optiray 320 of IV contrast COMPARISON: No relevant prior studies available. FINDINGS: Lung bases: Unremarkable. No mass. No consolidation. ABDOMEN: Liver: Unremarkable. No mass. Gallbladder and bile ducts: Cholelithiasis. No ductal dilation. Pancreas: Unremarkable. No mass. No ductal dilation. Spleen: Calcified splenic granulomas. Adrenals: Unremarkable. No mass. Kidneys and ureters: Unremarkable. No hydronephrosis or delayed nephrogram. Stomach and bowel: Diverticulosis, without acute diverticulitis. No bowel obstruction. No free air. PELVIS: Appendix: Appendectomy. Bladder: Unremarkable. No mass. Reproductive: Unremarkable as visualized. ABDOMEN and PELVIS: Intraperitoneal space: See above. Bones/joints: Degenerative changes of the spine. No acute fracture. No dislocation. Soft tissues: Unremarkable. Vasculature: Atherosclerotic changes of the aorta. No abdominal aortic aneurysm. Lymph nodes: Unremarkable. No enlarged lymph nodes. IMPRESSION: No acute findings in the abdomen or pelvis. Electronically signed by: Koby Anderson MD 07/31/23 21:[address] 08/01/23 00:14 Exam(s): CT CHEST Without Contrast EXAM: CT Chest Without Intravenous Contrast CLINICAL HISTORY: Reason for exam: illness, cough. TECHNIQUE: Axial computed tomography images of the chest without intravenous contrast. Automated exposure control was utilized for the study. A dose lowering technique was utilized adhering to the principles of ALARA. COMPARISON: No relevant prior studies available. FINDINGS: Lungs: Mild dependent atelectasis. Old fracture of the RIGHT medial clavicle. No mass. Pleural space: Unremarkable. No pneumothorax. No significant effusion. Heart: Unremarkable. No cardiomegaly. No significant pericardial effusion. No significant coronary artery calcifications. Bones/joints: Degenerative changes of the spine. Soft tissues: Unremarkable. Vasculature: Atherosclerotic changes of the aorta, with coronary involvement. No thoracic aortic aneurysm. Lymph nodes: Unremarkable. No enlarged lymph nodes. Spleen: Calcified granuloma in the spleen. IMPRESSION: No acute findings in the chest. Electronically signed by: Koby Anderson MD 08/01/23 00:[address] 08/01/23 00:14 Exam(s): CT HEAD Without Contrast EXAM: CT Head Without Intravenous Contrast CLINICAL HISTORY: Reason for exam: headache. TECHNIQUE: Axial computed tomography images of the head/brain without intravenous contrast. Automated exposure control was utilized for the study. A dose lowering technique was utilized adhering to the principles of ALARA. COMPARISON: No relevant prior studies available. FINDINGS: No acute intracranial hemorrhage. No midline shift or mass effect. The territorial to-white matter differentiation is maintained throughout. Age-related cerebral volume loss. Periventricular and subcortical white matter hypoattenuation, consistent with chronic microangiopathy. The visualized orbits appear grossly unremarkable. The calvarium is intact. LEFT paranasal sinus mucosal thickening. IMPRESSION: No acute intracranial hemorrhage, midline shift, or mass effect. Electronically signed by: Koby Anderson MD 08/01/23 00:54 AM Liver Ultrasound 08/01/23 12:54 ULTRASOUND RIGHT UPPER QUADRANT ABDOMEN CLINICAL HISTORY: Right upper quadrant abdominal pain. COMPARISON STUDY: Abdominal CT dated 07/31/2023. TECHNIQUE: Real-time, grayscale, and color flow sonography of the right upper quadrant of the abdomen was performed. Images are reviewed in the transverse and longitudinal planes. FINDINGS: Liver: The liver is normal in size and echotexture. There is no intrahepatic biliary ductal dilatation. The main portal vein is patent. Gallbladder: The gallbladder is distended, and there are several small shadowing gallstones. The gallbladder wall is mildly thickened and edematous, measuring up to 3 mm. There is trace pericholecystic fluid. A sonographic Deleon's sign is reportedly present. The common bile duct measures up to 0.4 cm in diameter. Pancreas: Visualized portions of the pancreatic head and body are normal in appearance. Right kidney: Survey images of the right kidney demonstrate normal size and echotexture. There is no hydronephrosis. There is trace nonspecific perinephric fluid. Ascites: None. IMPRESSION: 1. Cholelithiasis with sonographic evidence of acute cholecystitis. Surgical assessment is advised. 2. There is no intra or extrahepatic biliary ductal dilatation. ACT 112: Negative or not required by law. Electronically signed by: Lakhwinder Wang M.D. 08/01/2023 2:26 PM Hepatobiliary Scan Nuclear Medicine 08/02/23 19:23 NUCLEAR MEDICINE HEPATOBILIARY SCAN HISTORY: cholelithiasis, possible cholecystitis COMPARISON: Abdominal ultrasound 08/01/2023. TECHNIQUE: Immediately following the intravenous administration of 5.5 mCi Tc- 99m Choletec, dynamic anterior abdominal imaging was performed. FINDINGS: Uniform hepatic tracer accumulation is shown. Prompt intrahepatic biliary excretion is seen. The gallbladder, common bile duct, and small bowel are all visualized by 40 minutes. This appearance represents the normal sequence of biliary excretion. IMPRESSION: 1. No evidence for cystic duct obstruction. ACT 112: Negative or not required by law. Electronically signed by: Javier Gonzalez M.D. 08/02/2023 12:23 PM Venous Doppler Study 08/04/23 14:21 ULTRASOUND BILATERAL LOWER EXTREMITY VENOUS CLINICAL HISTORY: Lower extremity edema. COMPARISON STUDY: No priors. TECHNIQUE: Real-time, grayscale, and color Doppler sonography of the deep veins of the right and left lower extremity was performed from the inguinal crease to the calf. Compression and augmentation were utilized. FINDINGS: There is no sonographic evidence of deep venous thrombosis identified in the right or left lower extremity. The common femoral, superficial femoral, and popliteal veins are patent and normally compressible bilaterally. The greater saphenous vein and the profunda femoris vein at the junction with the common femoral vein are clear in both legs. The visualized calf veins are patent bilaterally. IMPRESSION: There is no sonographic evidence of deep venous thrombosis identified in the right or left lower extremity. ACT 112: Negative or not required by law. Electronically signed by: Lakhwinder Wang M.D. 08/04/2023 5:04 PM Ordered Studies 07/31/23 21:13 CT abd pelvis IV con only Stat 08/01/23 00:14 CT chest diagnostic wo con Urgent CT head/brain wo con Urgent 08/01/23 10:41 US upper EUS PACS images Routine 08/01/23 12:54 US RUQ [US liver] Routine 08/04/23 14:21 US venous doppler LE Routine Hospital Course (1) Abdominal pain: 78 yo F w/ type 2 diabetes seems not on medication, hypothyroidism, chronic recurrent sinusitis, history of CAD s/p stents in February 2023, hypertension, paroxysmal supraventricular tachycardia, GERD, vitamin B12 deficiency, epiglottic appendagitis urinary incontinence, generalized osteoarthritis, cervical radiculitis, chronic abdominal pain, progressive vascular leukoencephalopathy, circumscribed scleroderma, s/p cervical fusion surgery, general anxiety disorder, ambulatory dysfunction presents with ongoing nausea vomiting abdominal pain diarrhea and hip pain. Patient was seen at [facility] on with fever and vomiting and burning micturition and found to RSV and was discharged home. She went back to [facility] in July 18 with persistent symptoms and chest x-ray possible pneumonia and her initial lactic acid was 2.6 and repeat is 1.6 and she was discharged on Augmentin and azithromycin. She finished antibiotics yesterday. Again starting developing nausea vomiting severe abdominal pain and hip pain and pain radiating to groins which prompted her to come to the ER today. Hemodynamically stable. Initial lactic acid was 4.3. Repeat lactic is 2.8. Complains of some burning micturition. She was given Rocephin. CT abdomen pelvis is okay. No leukocytosis. Afebrile. States sometimes gets headache. Vision is okay. She has some chronic left-sided neck pain and jaw pain from history of dental infection. No neck stiffness. Still nauseous. Denies any chest pain. No shortness of breath. No cough. No blood in the stools. Hemodynamics okay. Afib w/ RVR Developed after having endoscopy Converted to sinus Continue amiodarone, metoprolol On IV heparin for anticoagulation>> transition to Eliquis Discussed with telephone order clerk on-call: Okay to start on Eliquis Appreciate cardiology input Needs follow-up with cardiology on discharge Esophagitis/Gastritis Gastric polyps Cholelithiasis Presented with abdominal pain, nausea, vomiting, diarrhea --S/P EGD: Normal upper third of esophagus and middle third of esophagus. LA Grade A esophagitis with no bleeding. Biopsied. Gastric mucosal atrophy. Biopsied. Multiple gastric polyps. Biopsied. Normal examined duodenum. Biopsied. --CT ABD:No acute findings in the abdomen or pelvis. --HIDA:No evidence for cystic duct obstruction. --Liver USD:Cholelithiasis with sonographic evidence of acute cholecystitis. Surgical assessment is advised. There is no intra or extrahepatic biliary ductal dilatation. --Stomach biopsy showed diffuse chronic gastritis with diffuse intestinal metaplasia. Dysplasia and carcinoma are not seen. H. pylori negative. Also noted polypoid foveolar hyperplasia. --GE junction biopsy suggestive of moderate chronic reflux esophagitis --Stool studies negative -- Continue Protonix 40 mg daily Continue Carafate 1 g 4 times a day for 2 weeks Needs repeat endoscopy in 3 months Appreciate GI input Needs follow-up with surgery for possible cholecystectomy as outpatient Tolerated regular diet Lactic acidosis Fever of unknown origin Recently treated for RSV, possible pneumonia, ?UTI Imaging studies not suggestive of acute cholecystitis CT chest, abdomen not suggestive of any infection BioFire, stool studies negative UA not suggestive of UTI Elevated procalcitonin Blood cultures: Negative to date Lactic acidosis resolved with IV fluids Leukocytosis resolved Empirically on Zosyn>> transition to Augmentin on discharge to complete 10 day course Hypokalemia Hypophosphatemia Hypomagnesemia Hypocalcemia Monitor and replete electrolytes as needed Lower extremity edema Venous Doppler:There is no sonographic evidence of deep venous thrombosis identified in the right or left lower extremity. Lower extremity edema improved H/O of CAD s/p stents in February 2023 Continue Plavix, beta-andreia and statin Hypertension Hyperlipidemia Levothyroxine Continue current medications Monitor BP DM II HbA1c 6.4 Continue insulin while hospitalized Monitor BGs H/O SVT Continue metoprolol, amiodarone DVT Px: on IV Heparin>>Transition to Eliquis Code Status Full code Disposition Home Total Time Total Time Spent Total Time Spent (In Minutes): 66 minutes Discharge Plan Discharge Items Patient Disposition: Home - Self-Care Reason For Visit: ABDOMINAL PAIN, LACT ACIDOSIS Discharge Diagnosis: Esophagitis/Gastritis Gastric polyps Cholelithiasis Atrial fibrillation with rapid ventricular response Activity: Per Instructions section Exercise/Sports: Wait until after follow-up appointment Non-emergency contact: Primary Care Provider, Surgeon, [employer] and Legal Department Manager Call non-emergency contact if: you have any medication questions, your symptoms worsen, your pain is concerning for you and you have a fever Follow-up/Referrals: Abdi Alcala DO, FACS [Physician] - (You may call to schedule follow up with the surgeon to discuss the possibility of removing your gallbladder as an outpatient) Philly Chin, C.R.N.P. [Primary Care Provider] - Diet: Carb Consistent or DM2 and Heart Healthy Addtl Attending Provider Instructions: Follow-up with your primary care physician AMBROSE Bentley in 1 week Follow-up with your surgeon Dr. Alcala for possible cholecystectomy as outpatient Follow-up with your telephone order clerk Dr. Ross for repeat endoscopy in 3 months as advised. Follow-up with your groover operator Dr. Chong in 3-4 weeks --- Complete the antibiotic course Augmentin as prescribed. -- Please review the medication list below carefully for changes in your medications. Seek immediate medical attention if your symptoms reoccur or worsen Please take all medications as instructed on discharge list below. Please call if you have any questions or problems. You can reach a [facility] hospitalist on duty at [facility] 24 hours a day by calling [phone] Pending Studies at Discharge: No Stand-Alone Forms: My [facility], Smoking Cessation Medications and DC Order Prescriptions: New Eliquis 5 mg Tablet 5 mg PO BID Qty: 60 1RF amiodarone 200 mg Tablet 200 mg PO BIDM Qty: 60 1RF metoprolol succinate 25 mg Tablet Extended Release 24 Hr 25 mg PO BID Qty: 60 1RF Mag 64 64 mg Tablet,Delayed Release (Dr/Ec) 64 mg PO BID Qty: 60 0RF pantoprazole 40 mg Tablet,Delayed Release (Dr/Ec) 40 mg PO QAM Qty: 30 2RF sucralfate [Carafate] 1 gram tablet 1 g PO ACHS 14 Days Qty: 56 0RF amoxicillin-pot clavulanate [Augmentin] 500-125 mg tablet 1 tab PO BID Qty: 10 0RF Continued multivitamin Tablet 1 tab PO DAILY potassium chloride 10 mEq capsule, extended release 10 meq PO DAILY polyvinyl alcohol [Artificial Tears Plus] 1.4 % Drops 1 drp OPHTHALMIC (EYE) QID PRN (Reason: .DRY EYES) clobetasol 0.05 % cream 1 applic TOPICAL DIRECTED PRN (Reason: .FLARE UPS) cyanocobalamin (vitamin B-12) [Vitamin B-12] 1,000 mcg Tablet 1,000 mcg PO DAILY clopidogrel 75 mg tablet 75 mg PO DAILY levothyroxine 100 mcg tablet 100 mcg PO QAM nitroglycerin 0.4 mg tablet, sublingual 0.4 mg sublingual DIRECTED PRN (Reason: .CHEST PAIN) fluticasone propionate [Flonase Allergy Relief] 50 mcg/actuation [place],Suspension 2 spray INTRANASAL DAILY PRN (Reason: Nasal Congestion) Rx Instructions: administer into each nostril cyclosporine [Restasis] 0.05 % [place] 1 drp OPHTHALMIC (EYE) Q12H rosuvastatin 20 mg tablet 20 mg PO DAILY Probiotic 3 billion cell Capsule 0 mmu cells PO DAILY Rx Instructions: administer with a meal Discontinued aspirin [Aspir-Low] 81 mg Tablet,Delayed Release (Dr/Ec) 81 mg PO DAILY omeprazole 20 mg capsule,delayed release(DR/EC) 20 mg PO DAILY metoprolol tartrate 25 mg tablet 25 mg PO BID Discharge Orders: Discharge Order (Routine); Ordered 08/05/23 Ordered By: Hardik Tolliver/Other Patient Handouts: Prediabetes, 5 Steps for Eating Healthier Admission Data Admit Date/Time: 08/01/23 00:01 Attending Provider: Hardik Barton Admit Provider: Kevin Goodman Primary Care Provider: Philly Chin Other Providers: Kevin Goodman; Julio Tineo; Terrance Hussein; Monserrat Carlson; Rosaura Manning; Ondina Faith; Vasile Mauro; Cristopher Coulter; Hernan Ross; Adam Moser; Kaylene Rivera; Brando Adam; Gabriela Zamarripa; Kalina Regalado; Tatianna Gannon; Virgen Arredondo; Philly Barragan; Juwan Duenas; Beltran Salgado; Erica Berrios; oRula Tuttle Jr; Abdi Alcala; Arturo Chong
--- NOTE | 2023-08-05 14:24 | Cardiology Progress Note ---
Date of Service August 05, 2023 Assessment & Plan (1) Atrial fibrillation with rapid ventricular response: (2) CAD (coronary artery disease): (3) Esophagitis: Plan Pt with new onset of atrial fibrillation with rapid ventricular rate at just after 1500 on 08/01/23. Converted to sinus rhythm , 08/01/23 at 20:09 on IV amiodarone and oral metoprolol. Remains in sinus rhythm Patient's [id number] score is 4. Discontinue IV heparin. Add Eliquis 5 mg twice daily if no objections from the gastroenterology service. Discontinue low-dose aspirin. Continue clopidogrel. Continue oral amiodarone 200 mg twice daily for 10 days then reduce dose to 200 mg once daily. Continue metoprolol succinate 25 mg twice daily. Elevated troponin likely secondary to demand ischemia in the setting of paroxysmal atrial fibrillation with rapid ventricular response. Consider outpatient ischemic evaluation with recurrent anginal symptoms. Continue proton pump inhibitor and Carafate as per gastroenterology. Cardiology follow-up in 1 to 2 weeks post discharge. Admission and Anticipated Discharge Date Admission Date: August 01, 2023 Subjective Patient seen examined the bedside. Feeling better today. Remains in sinus rhythm on telemetry. Denies recurrent abdominal discomfort. No shortness of breath, palpitations, lightheadedness, or dizziness. Denies signs/symptoms of GI blood loss. Review of Systems Review of Systems: All systems reviewed & are unremarkable except as noted in Subjective Physical Exam Constitutional: well nourished; no acute distress Respiratory: normal respiratory effort; no respiratory distress and no labored breathing Auscultation: no crackles, no rales, no rhonchi and no wheezes Cardiovascular: Rate/Rhythm: regular rate and regular rhythm Heart Sounds: normal S1 and normal S2; no murmur Vessels: no JVD and no carotid bruit Extremities: no edema Gastrointestinal (Abdomen): Inspection/Auscultation: abdomen not distended Percussion/Palpation: abdomen soft; abdomen nontender, no guarding and abdomen not rigid Neurologic: CN's II-XI intact bilaterally and moves all extremities Results & Data Vital Signs (Past 12 Hours) Vital Signs Temp Pulse Resp BP Pulse Ox O2 Del Method 08/05/23 11:16 36.8 C 65 18 162/72 H 95 Room Air 08/05/23 07:08 36.6 C 60 19 161/84 H 96 Room Air 08/05/23 03:30 36.6 C 70 18 162/78 H 95 Room Air Laboratory Results Cardiac Enzymes 08/05/23 Range/Units 04:10 AST 34 (13-39) U/L CBC 08/05/23 Range/Units 04:10 WBC 8.58 (4.8-10.8) K/ul RBC 3.31 L (4.20-5.40) M/uL Hgb 11.1 L (12.0-16.0) g/dl Hct 31.9 L (37.0-47.0) % Plt Count 151 (130-400) K/uL Comprehensive Metabolic Panel 08/05/23 Range/Units 04:10 Sodium 140 (136-145) mmol/L Potassium 3.3 L (3.5-5.1) mmol/L Chloride 108 H (98-107) mmol/L Carbon Dioxide 24 (21-32) mmol/L BUN 5 L (6-23) mg/dl Creatinine 0.59 L (0.6-1.2) mg/dl Glucose 114 H (70-99(Fasting)) mg/dl Calcium 8.4 L (8.6-10.3) mg/dl AST 34 (13-39) U/L ALT 34 (7-52) U/L Alkaline Phosphatase 70 (34-104) U/L Total Protein 5.9 L (6.0-8.3) gm/dl Albumin 3.2 L (3.4-5.0) gm/dl Intake and Output 08/04/23 08/05/23 08/05/23 22:59 06:59 14:59 Intake Total 1441.067 / 1834.200 200 / 1834.200 100 / 100 Output Total 2 / 2 Balance 1439.067 / 1832.200 200 / 1832.200 100 / 100 Intake: IV 361.067 / 654.200 100 / 654.200 100 / 100 Heparin Sodium/Dextrose 25,000 261.067 / 354.200 units In 500 ml @ 1,100 UNITS/ HR 22 mls/hr IV .[id number] [facility] Rx #:[id number] Piperacillin/Tazobactam 4.5 gm 100 / 300 100 / 300 100 / 100 In Dextrose 5% Mini-B 100 ml @ 25 mls/hr IV Q8H [facility] Rx#: [id number] Oral 1080 / 1180 100 / 1180 Output: # Bowel Movements 2 / 2 Other: # Unmeasured Voids 3 2 Weight 77.3 kg Weight Measurement Method Built in [facility] (2) CAD (coronary artery disease) Associated angina: without angina Coronary Disease-Associated Artery/Lesion type: [place] artery [place] vs. transplanted heart: [place] heart Qualified Code(s): I25.10 - Atherosclerotic heart disease of [place] coronary artery without angina pectoris
--- NOTE | 2023-08-05 20:32 | Electrocardiogram Report ---
Test Reason : Blood Pressure : / mmHG Vent. Rate : 064 BPM Atrial Rate : 064 BPM P-R Int : 144 ms QRS Dur : 078 ms QT Int : 454 ms P-R-T Axes : 049 028 039 degrees QTc Int : 468 ms Normal sinus rhythm Low voltage QRS Nonspecific T wave abnormality Abnormal ECG When compared with ECG of 03-AUG-2023 14:34, No significant change was found Confirmed by Ced Rodriguez ([id number]) on 08/05/2023 8:31:36 PM Referred By: REFERRED SELF Confirmed By:Ced Rodriguez
--- NOTE | 2023-08-05 20:37 | Electrocardiogram Report ---
Test Reason : Blood Pressure : / mmHG Vent. Rate : 056 BPM Atrial Rate : 056 BPM P-R Int : 134 ms QRS Dur : 080 ms QT Int : 492 ms P-R-T Axes : -04 026 043 degrees QTc Int : 474 ms Sinus bradycardia Low voltage QRS Nonspecific T wave abnormality Abnormal ECG When compared with ECG of 04-AUG-2023 04:56, (unconfirmed) No significant change was found Confirmed by Ced Rodriguez ([id number] on 08/05/2023 8:36:41 PM Referred By: REFERRED SELF Confirmed By:Ced Rodriguez
== END 2023-08-05 16:01 | disposition home or self-care (01) | DRG 445 ==
LOC: ED 17:56 → SUATTDRO 08-01 00:01 → EDINP 08-01 00:01 → 2W 08-01 00:32 → 4W 08-01 16:47